=== PATIENT | male | born 1935 | race Caucasian/White ===

== ENCOUNTER → 2017-12-17 12:34 | Outpatient (CLI) | payer MEDICARE, SELFPAY ==
--- NOTE | 2017-12-17 12:38 | ECHOD_ITS ---
Reason For Study: ARRHYTHMIA Procedure This was a 2D Doppler, Color Flow transthoracic echocardiogram. Exam performed in department. Left Ventricle Normal LV size. Left ventricular systolic function is normal. The estimated ejection fraction is 60 %. Transmitral and pulmonary venous doppler flow suggestive of elevated left atrial pressure. Transmitral diastolic flow velocities suggest mild (stage 1) diastolic dysfunction (reversed pattern). Right Ventricle Normal RV size. Normal systolic function. Atria Normal left atrium. Normal right atrium. Mitral Valve Normal mitral valve. Trivial mitral valve insufficiency. Tricuspid Valve Normal tricuspid valve. Mild (1+) tricuspid valve insufficiency. Pulmonary artery systolic pressure is 34 mmHg. Aortic Valve Trisinus/trileaflet aortic valve. Mild focal aortic valve calcification. Pulmonic Valve Normal pulmonic valve. Great Vessels Normal aortic root. The pulmonary artery is normal size. Inferior vena cava collapse with sniff. Pericardium/Pleural No pericardial effusion. MMode/2D Measurements & Calculations LVIDd: 3.8 cm IVSd: 1.1 cm Ao root diam: 3.3 cm LVIDs: 2.4 cm LVPWd: 1.1 cm LA dimension: 3.1 cm RVDd: 4.6 cm FS: 37.8 % LAV(MOD-bp): 73.1 ml EDV(MOD-sp4): 128.9 ml EDV(MOD-sp2): 85.6 ml LAV(MOD-bp) Indexed: 39.5 ml/m2 ESV(MOD-sp4): 26.6 ml EF(MOD-sp2): 59.9 % LAV(MOD-sp2): 77.3 ml EF(MOD-sp4): 79.4 % LAV(MOD-sp4): 67.3 ml SV(MOD-sp4): 102.3 ml SV(MOD-sp2): 51.3 ml LA A4 area: 21.7 cm2 RA A4 area: 18.4 cm2 Doppler Measurements & Calculations MV E max kj: 82.7 cm/sec Ao V2 max: 187.9 cm/sec AI max kj: 392.8 cm/sec MV A max kj: 100.9 cm/sec Ao max P.1 mmHg AI max P.7 mmHg MV E/A: 0.82 AI dec slope: 235.5 cm/sec2 AI P1/2t: 488.6 msec LV V1 max: 151.2 cm/sec PA V2 max: 137.8 cm/sec PI end-d kj: 97.6 cm/sec LV V1 max P.2 mmHg TR max kj: 271.6 cm/sec TR max P.5 mmHg Interpretation Summary Normal LV size. Left ventricular systolic function is normal. The estimated ejection fraction is 60 %. Transmitral and pulmonary venous doppler flow suggestive of elevated left atrial pressure. Transmitral diastolic flow velocities suggest mild (stage 1) diastolic dysfunction (reversed pattern). Pulmonary artery systolic pressure is 34 mmHg. Ordering Physician: Yordan Child Referring Physician: Renata Rodriguez M.D. Performed By: Tamara Mendez, DARI, RVT
== END ==
PROVIDERS: Family Provider Internal Medicine; PCP Internal Medicine; Visit Provider Internal Medicine Cardiovascular Disease
DX: I48.91 Unspecified atrial fibrillation (principal); I36.1 Nonrheumatic tricuspid (valve) insufficiency
CPT/HCPCS: 93225; 93226; 93306

== ENCOUNTER 2018-05-07 16:00 | Outpatient (RCR) | payer MEDICARE, SELFPAY ==
--- NOTE | 2018-03-23 08:29 | HP.PTEVAL ---
Patient's Visit Information JOCELYNE SINGLETON is a 82 year old M referred to Physical Therapy by Mike Nayak with a diagnosis of imbalance, dizzyness. Date of Evaluation: 03/23/18 Physical Therapist: Rian Mao DPT, OC - Visit Plan Frequency: 2x /Week Duration: 4-6 Weeks Plan: Neurocom balance assessment and then 1-2 visists to teach HEP and f/u one months later for ensure progress. - Subjective Subjective: Golfing in november and had a stroke. Didn't know which way to go, lied down after the golf game and went to ER next day. Found a stroke and leukemia. Is on chemo 3x/month now for leukemia. Was in hospital 4 days. They spend the Winter in [facility]. Now he is home with his . He robyn golfed twoce but endurance is down. Life is pretty normal but balance is worse especially when he is tired and. he veers to the right running into his at times when walkign with her. No AD, no spinning, no pain, no neuropathy. - Objective Walks into and out of PT I, Trasnfers I. VOR is very hard for patient even sitting but walking shows veering as he is doing it. Full UE and LE AROM, Gastroc slightly tight B. Sensation In LE WNL to gross light touch. reflexes 1/3 patella and achilles. Stregnth LE 4+/5 and UE 4/5. symmtrical but R obviously weaker on steps as L hits ground hard. Veers to the right when standign on foam with ec. - Balance Scores Functional Gait Assessment Score: 22 % Disability: 26.6700 CATSIB Score (Max score 120 seconds): 102 - Goals Goal 1:: Patient feel 100% back to normal Goal Time Frame: 4-6 Weeks Goal 2:: Score 25/30 on FGA and walk VOR without veering R Goal Time Frame: 4-6 Weeks Goal 3:: Pt I in approp ex to minimize future problems. Goal Time Frame: 4-6 Weeks - Rehabilitation Potential Physical Therapy Diagnosis: imbalance, dizzyness. Rehabilitation Potential: Fair - Anticipated Interventions Patient/Client Instruction: Educate patient on: Condition For the Purpose of:: To improve ability of physical actions for home/community/work/leisure, To improve gait and locomotor functions, To improve safety Therapeutic Exercise to Include: Balance training For the Purpose of:: To improve muscle performance and motor function, To improve ability of physical actions for home/community/work/leisure, To improve gait and locomotor functions Thank you for the opportunity to evaluate your patient. For Medicare and Medicare HMO plans, please review the plan of care and approve it. It will need to be FAXED BACK to us at [phone] for Medicare purposes. Please let me know if there are questions or concerns regarding this plan of care. Physician Signature: Date:
--- NOTE | 2018-03-31 11:06 | HP.PTCOM ---
PT Communication Note 03/31/[address] Mike Nayak , Thank you for the referral of Waqar to [facility] for balance assessment. I have enclosed a copy of the results for your review. In summation, he scored slightly low on the visual and vestibular portion of the Sensory Organization test. He scored low ont he excursion forward and left on the Limits of Stability Test. He aaslo showed latency in all directions on the Motor Control Test. His Adaptation Test was normal. With these results in mind, I plan to see him for one visit to teach an exercise program to address these issues. I then plan for him to do the exercises at home and f/u one month down the road to ensure improvement and progress. Please contact me if you have questions regarding these tests or plans. Sincerely, Rian Mao DPT, OC Contact Information
--- NOTE | 2018-03-31 11:09 | HP.PTCOM_ITS ---
PT Communication Note 03/31/[address] Mike Nayak , Thank you for the referral of Waqar to [facility] for balance assessment. I have enclosed a copy of the results for your review. In summation, he scored slightly low on the visual and vestibular portion of the Sensory Organization test. He scored low ont he excursion forward and left on the Limits of Stability Test. He aaslo showed latency in all directions on the Motor Control Test. His Adaptation Test was normal. With these results in mind, I plan to see him for one visit to teach an exercise program to address these issues. I then plan for him to do the exercises at home and f/u one month down the road to ensure improvement and progress. Please contact me if you have questions regarding these tests or plans. Sincerely, Rian Mao DPT, OC Contact Information
--- NOTE | 2018-05-07 16:33 | HP.PTDCSUM_ITS ---
HP - PT D/C Summary It has been my pleasure to treat JOCELYNE SINGLETON under orders from Mike Nayak, for the diagnosis of imbalance, dizzyness for a total of 4 visit(s) . Discharge Date: 05/07/18 Please see the following information for a summary of their discharge status. - Subjective Subjective: Doing better. ex getting easier. No more dizzyness. - Overall Improvement % Improvement: 80 - Objective Objective/Function: FGA much better % points. SOT slightly better but still vestib deficits. LOS much better and normal now for age.OVERALL DOING EXCELLENT WITH MUCH IMPROVEMENT. - Goals Goal 1:: Patient feel 100% back to normal Goal Progress: Progressing Goal 2:: Score 25/30 on FGA and walk VOR without veering R Goal Progress: Goal Met Goal 3:: Pt I in approp ex to minimize future problems. Goal Progress: Goal Met - Plan Plan: D/C TO HEP - D/C Information Discharge Comments: dOING VERY WELL AND WILL CONTINUE VIA hep If there are questions or concerns regarding this patient's physical therapy, please feel free to call me at [phone]. Thank you for the referral of this patient. Sincerely, Rian Mao, DPT, OC
== END 2018-05-07 19:00 | disposition home or self-care (01) ==
LOC: PT 16:00
PROVIDERS: Family Provider Internal Medicine; PCP Internal Medicine; Visit Provider Psychiatry & Neurology Neurology
DX: R42 Dizziness and giddiness (principal); R26.89 Other abnormalities of gait and mobility
CPT/HCPCS: 97110; 97162; 97530; 97750; G8978; G8979

== ENCOUNTER → 2018-06-27 10:10 | Outpatient (CLI) | payer MEDICARE, SELFPAY ==
--- NOTE | 2018-06-27 10:10 | LES_PTH ---
PATIENT: JOCELYNE SINGLETON LOC: [facility] U#:[id number] AGE/SX: 89/M ROOM: RE06/27/[address]: Dr. Fly Dutta MD : 1935 BED: DIS: SPEC #: [id number] RECD: 06/29/18 07:20 STATUS: SUHAIL SANDI #: [id number] MARY: 06/27/18 10:[address]: Fly Dutta DEPT: SURGICAL PATHOLOGY RECD BY: Maurilio Novak ENTERED: 06/29/18 08:48 SP TYPE: Lesion OTHR DR: Dr. Renata Rodriguez MD Tissues: Skin of leg, NOS Procedures: Surgery Specimen Level IV HEADER OPERATION: Excision left lower leg lesion PRE-OP DIAGNOSIS: Uncertain neoplasm leg TISSUE SUBMITTED: Left lower leg tissue transverse ellipse, suture valenzuela lateral MICROSCOPIC DIAGNOSIS Lesion of left lower leg, excisional biopsy: Squamous cell carcinoma, keratoacanthomatous type, mildly inflamed. See Comment. AM:marlo 06/30/18 COMMENT The lesion is completely excised in the planes examined. Focal microinvasion by carcinoma is suspected. Case has been reviewed in consultation with Dr. Burrell who concurs with the above diagnosis. IDC:SJ MICROSCOPIC DESCRIPTION Slides are reviewed. GROSS DESCRIPTION Received in fixative is one container labeled with the patient's name and designated left lower leg. The specimen consists of a jurado-white skin ellipse measuring 3 x 1.5 cm and up to 0.3 cm in thickness. A suture identifies the lateral tip of the ellipse. The specimen is inked as follows: lateral tip assigned as 9 o'clock and inked yellow, medial tip 3 o'clock inked green, superior margin and peripheral margin assigned as 12 o'clock - black and other peripheral margin assigned as 6 o'clock - blue. There is a woodward, nodular lesion on the surface measuring 0.7 cm in diameter. The specimen is serially sectioned and submitted entirely in three cassettes as follows: 1 - medial and lateral tip, 2 - medial half of the specimen, 3 - lateral half of the specimen. / SJ:rg 06/29/18 TC:0 CPT: 74819 ADDENDUM ADDENDUM ADDENDUM ADDENDUM ADDENDUM ADDENDUM ADDENDUM ADDENDUM ADDENDUM ADDENDUM ADDENDUM ADDENDUM ADDENDUM ADDENDUM 07/14/2018 12:45 ADDENDUM 07/14/2018 12:45 ADDENDUM 07/14/2018 12:45 ADDENDUM 07/14/2018 12:45 ADDENDUM 07/14/2018 12:45 This case was discussed with Dr. Stanley on 07/09/[address] Burrell and the following items were highlighted: Tumor type - well differentiated squamous cell carcinoma, keratoacanthomatous type. Tumor size - 0.7 cm Closest peripheral margin - 0.3 cm Closest deep margin - 0.2 cm Perineural invasion - not identified Lymphvascular invasion - not identified Suspected microinvasive carcinoma - 0.1 cm in greatest dimension. AM:marlo 07/13/18 AM:marlo 07/14/18
--- NOTE | 2018-06-27 10:10 | LES_PTH ---
PATIENT: JOCELYNE SINGLETON LOC: [facility] U#:[id number] AGE/SX: 89/M ROOM: RE06/27/[address]: Dr. Fly Dutta MD : 1935 BED: DIS: SPEC #: [id number] RECD: 06/29/18 07:20 STATUS: SUHAIL SANDI #: [id number] MRAY: 06/27/18 10:[address]: Fly Dutta DEPT: SURGICAL PATHOLOGY RECD BY: Maurilio Novak ENTERED: 06/29/18 08:48 SP TYPE: Lesion OTHR DR: Dr. Renata Rodriguez MD Tissues: Skin of leg, NOS Procedures: Surgery Specimen Level IV HEADER OPERATION: Excision left lower leg lesion PRE-OP DIAGNOSIS: Uncertain neoplasm leg TISSUE SUBMITTED: Left lower leg tissue transverse ellipse, suture valenzuela lateral MICROSCOPIC DIAGNOSIS Lesion of left lower leg, excisional biopsy: Squamous cell carcinoma, keratoacanthomatous type, mildly inflamed. See Comment. AM:marlo 06/30/18 COMMENT The lesion is completely excised in the planes examined. Focal microinvasion by carcinoma is suspected. Case has been reviewed in consultation with Dr. Burrell who concurs with the above diagnosis. IDC:SJ MICROSCOPIC DESCRIPTION Slides are reviewed. GROSS DESCRIPTION Received in fixative is one container labeled with the patient's name and designated left lower leg. The specimen consists of a jurado-white skin ellipse measuring 3 x 1.5 cm and up to 0.3 cm in thickness. A suture identifies the lateral tip of the ellipse. The specimen is inked as follows: lateral tip assigned as 9 o'clock and inked yellow, medial tip 3 o'clock inked green, superior margin and peripheral margin assigned as 12 o'clock - black and other peripheral margin assigned as 6 o'clock - blue. There is a woodward, nodular lesion on the surface measuring 0.7 cm in diameter. The specimen is serially sectioned and submitted entirely in three cassettes as follows: 1 - medial and lateral tip, 2 - medial half of the specimen, 3 - lateral half of the specimen. / SJ:rg 06/29/18 TC:0 CPT: 18080 ADDENDUM ADDENDUM ADDENDUM ADDENDUM ADDENDUM ADDENDUM ADDENDUM ADDENDUM ADDENDUM ADDENDUM ADDENDUM ADDENDUM 07/13/2018 14:58 ADDENDUM 07/13/2018 14:58 ADDENDUM 07/13/2018 14:58 ADDENDUM 07/13/2018 14:58 ADDENDUM 07/13/2018 14:58 This case was discussed with Dr. Stanley on 07/09/[address] Burrell and the following items were highlighted: Tumor size - 0.7 cm Closest peripheral margin - 0.3 cm Closest deep margin - 0.2 cm Perineural invasion - not identified Lymphvascular invasion - not identified Suspected microinvasive carcinoma - 0.1 cm in greatest dimension. AM:marlo 07/13/18
== END ==
PROVIDERS: Family Provider Internal Medicine; PCP Internal Medicine; Visit Provider Surgery
DX: C44.729 Squamous cell carcinoma of skin of left lower limb, including hip (principal)
CPT/HCPCS: 88305

== ENCOUNTER 2019-06-29 06:31 | Emergency (ER) | payer MEDICARE, SELFPAY ==
[2018-07-14 13:00] VITALS: BMI 24.0
[2019-06-29 06:32] VITALS: BP 158/88; PULSE 80; RESP 16; TEMP 36.2; O2SAT 97; BMI 24.5
--- NOTE | 2019-06-29 06:43 | ED.VIS.GEN ---
History of Present Illness Chief Complaint: Wound Check Narrative: Patient is an 84-year-old male who presents with a bleeding wound. He had a carcinoma removed from his left cheek by dermatology yesterday. He initially had a pressure dressing. He has had some ongoing bleeding ever since that time and has been unable to stop it. He actually has an appointment 10:00 this morning. They spoke to the surgeon yesterday who noted that if they were unable to control the bleeding they should go to an urgent care or emergency department for a pressure dressing. Past Medical History - Allergies and Home Meds Allergies/Adverse Reactions: Allergies azithromycin [From Zithromax Z-Moises] Adverse Reaction (Mild, Verified 06/29/19 06:35) GI Upset atorvastatin Adverse Reaction (Verified 06/29/19 06:35) un able to focus Sulfa (Sulfonamide Antibiotics) Adverse Reaction (Verified 06/29/19 06:35) Unknown Primary Care Physician: Renata Rodriguez MD [Primary Care Provider] - Past Medical History: None Smoking Status: Former smoker Review of Systems All systems negative except as indicated General: Denies: Fever Cardiovascular: Denies: Chest pain Respiratory: Denies: Dyspnea Gastrointestinal: Denies: Vomiting Skin: Reports: Wounds Physical Exam Vital Signs/Narrative: Vital Signs Temp Pulse Resp Pulse Ox 06/29/19 06:32 97.2 F L 80 16 97 Inital Vital Signs reviewed: Yes General: Well nourished Head: Normocephalic Eyes: EOMI ENT: Moist mucous membranes Cardiovascular: Regular rate, Regular rhythm Respiratory: No distress Skin: - - Surgical wound to the left cheek with mild consistent venous bleeding Neurological: Alert Psychological: Normal affect Diagnostic/Tx/Re-eval - Medical Decision Making Patient presents with a bleeding surgical wound. Surgicel and a gauze dressing was placed. Bleeding appears to be controlled. We will monitor him for a time here to make sure the dressing does not saturate thrill and otherwise he can follow-up with his scheduled appointment with dermatology in 3 hours. ED Disposition - Plan for ED Patient: Disposition: Home or Assisted Living Diagnosis: Visit for wound check, Bleeding from wound Instructions: POST OP WOUND CHECK, Bleeding Referrals: Renata Rodriguez MD [Primary Care Provider] - Additional Instructions: Follow-up with dermatology today as scheduled.
== END 2019-06-29 07:33 | disposition home or self-care (01) ==
LOC: ED 06:48
PROVIDERS: Emergency Provider Emergency Medicine; Family Provider Internal Medicine; PCP Internal Medicine
DX: Z48.00 Encounter for change or removal of nonsurgical wound dressing (principal); Z85.828 Personal history of other malignant neoplasm of skin; Z87.891 Personal history of nicotine dependence
CPT/HCPCS: 99282

== ENCOUNTER 2020-10-26 09:19 | Outpatient (RCR) | payer MEDICARE, SELFPAY ==
[2018-07-14 13:00] VITALS: BMI 24.0
[2019-08-24 09:23] VITALS: BMI 24.6
== END 2020-10-26 23:59 ==
LOC: IMMUN 09:19
PROVIDERS: PCP Internal Medicine; Visit Provider Family Medicine
DX: Z23 Encounter for immunization (principal)
CPT/HCPCS: 0011A; 0012A; 91301

== ENCOUNTER 2021-11-16 15:31 | Emergency (ER) | payer MEDICARE, SELFPAY ==
[2018-07-14 13:00] VITALS: BMI 24.0
[2021-11-16 15:33] VITALS: BP 139/88; PULSE 75; RESP 18; TEMP 36.1; O2SAT 95; BMI 21.5
[2021-11-16 17:22] VITALS: BP 143/56; PULSE 69; RESP 18; O2SAT 93
[2021-11-16 19:12] VITALS: BP 128/57
--- NOTE | 2021-11-16 21:01 | EDS_ITS ---
HPI History of Present Illness Chief Complaint: Abn Labs Narrative Narrative: 86-year-old male sent in by Dr. Enriquez for platelet transfusion. Dr. Enriquez states that his platelet count is 18,000. He states he is having trouble getting outpatient transfusions for platelets and blood. 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 Dr. Enriquez did state that the patient had a stable hemoglobin 8.0 and he already did blood work and the patient just needs to get platelets. He states that he would obtain a urinalysis and urine culture in the office due to the patient's complaint of hematuria. He states that this did not need to be checked in the ER either. Patient has no complaints during the interview. [facility] Medical History Abnormal electrocardiogram Arthritis Chronic kidney disease, stage 3 CML (chronic myelocytic leukemia) CVA (cerebral vascular accident) DDD (degenerative disc disease) GERD (gastroesophageal reflux disease) H/O seborrheic keratosis Hyperlipidemia Keratoacanthoma Leukocytosis Lymphoma Prostate cancer Skin malignant neoplasm Thyroid nodule Vertigo Home Medications aspirin 81 mg tablet,delayed release 81 mg PO QDAY tab 12/17/17 [History Last Taken Unknown] decitabine 50 mg intravenous solution SUBCUT QMONTH ea 07/31/21 [History Last Taken Unknown] ferrous sulfate 325 mg (65 mg iron) tablet 325 mg PO DAILY 07/31/21 [History Last Taken Unknown] loratadine 10 mg tablet 10 mg PO DAILY 07/31/21 [History Last Taken Unknown] Allergy/AdvReac Type Severity Reaction Status Date / Time azithromycin AdvReac Mild GI Upset Verified 11/16/21 15:36 [From Zithromax Z-Moises] atorvastatin AdvReac un able to Verified 11/16/21 15:36 focus Sulfa (Sulfonamide AdvReac Unknown Verified 11/16/21 15:36 Antibiotics) Family History Father COPD (chronic obstructive pulmonary disease) Mother Heart disease Alzheimer disease Surgical History History of radical prostatectomy (~1996) Social History Smoking Status: Former smoker quit date: 10/06/79 pack-years: 20 alcohol intake: current alcohol intake frequency: a few times a month substance use type: does not use ROS ROS ED Constitutional Constitutional ED: Denies chills or fever(s) Eyes Eyes: Denies blurry vision or diplopia ENT ENT ED: Denies rhinorrhea or sore throat Cardiovascular Cardiovascular: Denies chest pain or palpitations Respiratory/Chest Respiratory/Chest: Denies cough or dyspnea Gastrointestinal Gastrointestinal: Denies abdominal pain, diarrhea, nausea or vomiting Genitourinary Genitourinary ED: Reports hematuria; Denies dysuria Musculoskeletal Musculoskeletal: Denies arthralgias, back pain, myalgias or neck pain Integumentary Denies rash Neurologic Neurologic: Denies headache(s) or paresthesias EXAM Physical Exam Const Vital Signs: 11/16/21 15:33 11/16/21 16:16 11/16/21 17:22 Temperature 96.9 F L Temperature Source Temporal Pulse Rate 75 69 Respiratory Rate 18 18 Respiratory Effort Normal Non-Labored Respiratory Pattern Normal Blood Pressure 139/88 H 143/56 H Blood Pressure Mean 105 85 Pulse Ox 95 93 Oxygen Delivery Method Room Air Room Air 11/16/21 19:12 11/16/21 21:55 Temperature Temperature Source Pulse Rate 78 Respiratory Rate 16 Respiratory Effort Respiratory Pattern Blood Pressure 128/57 H 114/44 L Blood Pressure Mean 80 67 Pulse Ox 98 Oxygen Delivery Method Room Air Positive well nourished General Appearance ED: NAD; Negative for pallor HEENT Reports moist mucous membranes Negative for trauma Eyes PERRL and EOMs intact bilaterally Resp normal respiratory effort and clear to auscultation bilaterally Cardio regular rate and regular rhythm Extremity normal to inspection General Extremety ED: Negative for edema or tenderness General Extremity: Negative for edema Neuro oriented x3 and CN's II-XII intact bilaterally Sensorium / Orientation: alert Motor Exam: strength 5/5 throughout Psych mental status grossly normal Skin no rashes or lesions noted General Skin Exam: Negative for jaundice or pallor MDM MDM MDM Narrative Medical decision making narrative: Patient will be receiving 1 unit of platelets per Dr. Enriquez. I counseled him on arrival that this would be a long wait and the platelets did have to come from [place]. These will be transfused and the patient will be discharged home. He will follow-up with Dr. Negrete outpatient. Impression: 1. Thrombocytopenia Lab Data Labs: Laboratory Results - last 24 hr 11/16/21 17:00 Blood Type O POSITIVE Discharge Plan Triage Chief Complaint: Abn Labs ED Provider: Bayron Perez Dx/Rx/DC Orders Instructions: Thrombocytopenia Prescriptions: No Action aspirin [Adult Aspirin Regimen] 81 mg tablet,delayed release (DR/EC) 81 mg PO QDAY RF: 0 loratadine [Claritin] 10 mg tablet 10 mg PO DAILY RF: 0 ferrous sulfate 325 mg (65 mg iron) tablet 325 mg PO DAILY RF: 0 decitabine [Dacogen] 50 mg recon soln subcut QMONTH RF: 0 Primary Care Provider: Renata Rodriguez Referrals: Renata Rodriguez MD [Primary Care Provider] - Disposition Disposition: Home, Self Care
[2021-11-16 21:55] VITALS: BP 114/44; PULSE 78; RESP 16; O2SAT 98
[2021-11-16 22:54] VITALS: PULSE 94; RESP 16; O2SAT 99
[2021-11-17] VITALS (7 sets, daily range): BP systolic 116–126; BP diastolic 48–53; PULSE 88–92; RESP 13–23; TEMP 36.6–36.8; O2SAT 98–100
== END 2021-11-17 02:06 | disposition home or self-care (01) ==
PROVIDERS: Emergency Provider Student in an Organized Health Care Education/Training Program; PCP Internal Medicine; Visit Provider Student in an Organized Health Care Education/Training Program
DX: D69.6 Thrombocytopenia, unspecified (principal); D46.9 Myelodysplastic syndrome, unspecified; N18.30 Chronic kidney disease, stage 3 unspecified; R31.9 Hematuria, unspecified; Z87.891 Personal history of nicotine dependence; E78.5 Hyperlipidemia, unspecified; M19.90 Unspecified osteoarthritis, unspecified site; Z86.73 Personal history of transient ischemic attack (TIA), and cerebral infarction without residual deficits; Z85.46 Personal history of malignant neoplasm of prostate; Z85.828 Personal history of other malignant neoplasm of skin; K21.9 Gastro-esophageal reflux disease without esophagitis; Z79.82 Long term (current) use of aspirin; Z79.899 Other long term (current) drug therapy
CPT/HCPCS: 99282; 36591; 86900; 86901; 86965; P9035; A4216

== ENCOUNTER 2021-11-19 10:17 | Inpatient (IN) | payer MEDICARE, SELFPAY ==
[2018-07-14 13:00] VITALS: BMI 24.0
[2021-11-19] VITALS (12 sets, daily range): BP systolic 104–149; BP diastolic 43–78; PULSE 77–113; RESP 14–18; TEMP 36.2–37.1; O2SAT 95–100; BMI 22.8; BMI 22.7
--- NOTE | 2021-11-19 10:55 | EX.ED.GUMALE ---
HPI History of Present Illness Chief Complaint: Complaint Informant: patient and spouse/S.O. Pain Onset: Days Context: Gradual Onset Timing: Continuous Current Severity: Mild Maximum Severity: Mild Narrative Narrative: No history of prior CVA, prostate cancer treated at [facility] and currently being treated for acute leukemia. He had gross hematuria for 4 days. He was seen in the emergency department on Friday was transfused platelets and discharged home. Today his oncologist Dr. Gary Enriquez called me. Patient is having continued hematuria and wanted his bladder irrigated along with labs. Patient denies other complaints. No nosebleed. No melena. He is on no blood thinners. Prior similar symptoms: Yes Recent Illness/Hospitalization: No PFSH [facility] Medical History (Updated 11/19/21 @ 12:[address] Ronaldo Ray MD) Abnormal electrocardiogram Arthritis Chronic kidney disease, stage 3 CML (chronic myelocytic leukemia) CVA (cerebral vascular accident) DDD (degenerative disc disease) GERD (gastroesophageal reflux disease) H/O seborrheic keratosis Hyperlipidemia Keratoacanthoma Leukocytosis Lymphoma Prostate cancer Skin malignant neoplasm Thyroid nodule Vertigo Home Medications aspirin 81 mg tablet,delayed release 81 mg PO QDAY tab 12/17/17 [History Last Taken Unknown] decitabine 50 mg intravenous solution SUBCUT QMONTH ea 07/31/21 [History Last Taken Unknown] ferrous sulfate 325 mg (65 mg iron) tablet 325 mg PO DAILY 07/31/21 [History Last Taken Unknown] loratadine 10 mg tablet 10 mg PO DAILY 07/31/21 [History Last Taken Unknown] Allergy/AdvReac Type Severity Reaction Status Date / Time azithromycin AdvReac Mild GI Upset Verified 11/16/21 15:36 [From Zithromax Z-Moises] atorvastatin AdvReac un able to Verified 11/16/21 15:36 focus Sulfa (Sulfonamide AdvReac Unknown Verified 11/16/21 15:36 Antibiotics) Family History Father COPD (chronic obstructive pulmonary disease) Mother Heart disease Alzheimer disease Surgical History History of radical prostatectomy (~1996) Social History Smoking Status: Former smoker quit date: 10/06/79 pack-years: 20 alcohol intake: current alcohol intake frequency: a few times a month substance use type: does not use ROS ROS ED ROS Narrative Hematuria. Review of Systems ROS Unobtainable: Denies due to encephalopathy Constitutional Constitutional ED: Denies fever(s) Eyes Eyes: Denies change in vision ENT ENT ED: Denies ear pain or sore throat Cardiovascular Cardiovascular: Denies chest pain Respiratory/Chest Respiratory/Chest: Denies cough or dyspnea Gastrointestinal Gastrointestinal: Denies abdominal pain, diarrhea, nausea or vomiting Genitourinary Genitourinary ED: Reports hematuria; Denies dysuria Musculoskeletal Musculoskeletal: Denies arthralgias or myalgias Integumentary Denies rash Neurologic Neurologic: Denies headache(s) Psychiatric Psychiatric: Denies depression Endocrine Endocrinology: Denies polyuria Hematologic/Lymphatic Hematologic/Lymphatic: Denies easy bruising Allergic/Immunologic Allergic/Immunologic ED: Denies urticaria EXAM Physical Exam Narrative Exam Narrative: 86-year-old male no acute distress. Sitting upright in bed. present at bedside. Vital signs stable afebrile. Initial blood pressure 149/51. He does not look septic or toxic. Neck nontender no lymphadenopathy. Lungs clear to auscultation. Heart regular rhythm rate about 95 no murmur. Abdomen soft nontender not normal bowel sounds no peritoneal signs. Moving all 4 extremities. Calves nontender. No edema. Neurologically is awake and alert with no focal motor de deficits. Const Vital Signs: 11/19/21 10:18 11/19/21 10:32 11/19/21 11:39 Temperature 97.2 F L 97.4 F L 98.4 F Temperature Source Temporal Temporal Temporal Pulse Rate 113 H 95 89 Respiratory Rate 17 18 14 Blood Pressure 149/51 H 141/61 H 104/75 Blood Pressure Mean 83 87 84 Pulse Ox 95 95 98 Oxygen Delivery Method Room Air Room Air Room Air 11/19/21 12:26 Temperature 97.6 F L Temperature Source Temporal Pulse Rate 77 Respiratory Rate 14 Blood Pressure 117/49 L Blood Pressure Mean 71 Pulse Ox 97 Oxygen Delivery Method Room Air Positive well nourished and well developed; Negative for obese, cachectic, contractures or unkempt General Appearance ED: well developed and NAD; Negative for unkempt, cachectic or contractures Nutritional Appearance: Negative for cachectic or obese HEENT Reports moist mucous membranes normocephalic and atraumatic; Negative for tenderness Eyes PERRL and EOMs intact bilaterally Neck no lymphadenopathy and supple Resp normal respiratory effort and clear to auscultation bilaterally Auscultation: Negative for rales, rhonchi or wheezes Cardio regular rate, regular rhythm, S1 normal heart sound, S2 normal heart sound and no murmurs GI non-tender, non-distended and no masses Auscultation: normoactive bowel sounds; Negative for hyperactive bowel sounds or hypoactive bowel sounds Palpation: soft; Negative for hepatomegaly Rectal Exam: Negative for tenderness no CVA tenderness Back/Spine no CVA tenderness General Back: Negative for CVA tenderness Cervical Spine: Negative for cervical spine tenderness Thoracic Spine / Upper Back: Negative for thoracic spinal tenderness Extremity normal to inspection General Extremety ED: Negative for edema or tenderness General Extremity: Negative for edema Neuro oriented x3, moves all extremities and no focal motor deficits Sensorium / Orientation: alert, oriented to person, oriented to place and oriented to time; Negative for orientation impaired, confused, lethargic or stuporous Motor Exam: strength 5/5 throughout Psych mental status grossly normal Appearance: Negative for unkempt Attitude: No agitated Mood & Affect: Negative for depressed or tearful Skin General Skin Exam: Negative for jaundice Lesions: no lesions Rashes: no rashes MDM MDM MDM Narrative Medical decision making narrative: 86-year-old male with gross hematuria. History of acute leukemia. Screening labs and urinalysis will be obtained. We went in place a 22 [place] catheter and irrigate out his bladder. Repeat exam patient is doing well at 12:45 PM. Is resting comfortably in bed. Nurses of irrigating with over a liter and it improves but it stays bloody the entire time. There are any significant clots. I spoke to both he and his . Given his blood counts worse and his platelets are worse he will need a platelet transfusion. He may or may not need urology involvement for cystoscopy. I will speak to his oncologist and the hospitalist to get him admitted. He also has acute on chronic kidney injury. I have ordered transfusion of platelets. Lab Data Attestation: I reviewed the patient's lab results. Lab results narrative: CBC shows a white count of 4.4. Hemoglobin is 6.4 and hematocrit of 21.8. Platelet count of 13,000. Those were all lower than his most recent lab work. Bands of 16. His CBC is consistent with some with acute leukemia and also bleeding. His electrolytes show an anion gap of 6. BUN of 49 and creatinine of 2.08. Glucose of 114. Urinalysis shows blood but no acute signs of infection. Labs: Laboratory Results - last 24 hr 11/19/21 11/19/21 11/19/21 11:05 11:05 11:05 WBC 4.4 RBC 2.15 L Hgb 6.4 L Hct 21.8 L MCV 101.4 H MCH 29.8 MCHC 29.4 L RDW Std Deviation 86.7 H RDW Coeff of Patsy 23.8 H Plt Count 13 L* Immature Gran % (Auto) WELDING PANTOGRAPH MACHINE OPERATOR Neut % (Auto) WELDING PANTOGRAPH MACHINE OPERATOR Lymph % (Auto) WELDING PANTOGRAPH MACHINE OPERATOR [place] % (Auto) WELDING PANTOGRAPH MACHINE OPERATOR Eos % (Auto) WELDING PANTOGRAPH MACHINE OPERATOR Baso % (Auto) WELDING PANTOGRAPH MACHINE OPERATOR Absolute Neuts (auto) 2.5 Absolute Lymphs (auto) 0.39 L Total Counted WELDING PANTOGRAPH MACHINE OPERATOR Neutrophils % (Manual) 40 L Band Neutrophils % 16 H Lymphocytes % (Manual) 9 L Monocytes % (Manual) 3 Eosinophils % (Manual) 20 H Metamyelocytes % 6 H Myelocytes % 5 H Blast Cells % 1 H* Nucleated RBC % 0.5 Nucleated RBCs/100 WBC 1 Diff Path Review May foll Platelet Estimate MKD DEC Hypochromasia 2+ Anisocytosis 3+ Sodium 139 Potassium 4.2 Chloride 109 H Carbon Dioxide 24.0 Anion Gap 6 BUN 49 H Creatinine 2.08 H Estim Creat Clear Calc 24.53 Est GFR (MDRD) Af Amer 39 L Est GFR (MDRD) Non-Af 32 L BUN/Creatinine Ratio 23.6 H Glucose 114 H Calcium 8.0 L Urine Color Urine Clarity Urine pH Ur Specific [place] Urine Protein Urine Glucose (UA) Urine Ketones Urine Occult Blood Urine Nitrite Urine Bilirubin Urine Urobilinogen Ur Leukocyte Esterase Urine RBC Urine WBC Ur Squamous Epith Cells Urine Bacteria Urine Mucus Blood Type O POSITIVE Antibody Screen NEGATIVE 11/19/21 11:44 WBC RBC Hgb Hct MCV MCH MCHC RDW Std Deviation RDW Coeff of Patsy Plt Count Immature Gran % (Auto) Neut % (Auto) Lymph % (Auto) [place] % (Auto) Eos % (Auto) Baso % (Auto) Absolute Neuts (auto) Absolute Lymphs (auto) Total Counted Neutrophils % (Manual) Band Neutrophils % Lymphocytes % (Manual) Monocytes % (Manual) Eosinophils % (Manual) Metamyelocytes % Myelocytes % Blast Cells % Nucleated RBC % Nucleated RBCs/100 WBC Diff Path Review Platelet Estimate Hypochromasia Anisocytosis Sodium Potassium Chloride Carbon Dioxide Anion Gap BUN Creatinine Estim Creat Clear Calc Est GFR (MDRD) Af Amer Est GFR (MDRD) Non-Af BUN/Creatinine Ratio Glucose Calcium Urine Color Red Urine Clarity Cloudy Urine pH 6.5 Ur Specific [place] 1.015 Urine Protein 500 H Urine Glucose (UA) Normal Urine Ketones Negative Urine Occult Blood 250 H Urine Nitrite Negative Urine Bilirubin Negative Urine Urobilinogen Normal Ur Leukocyte Esterase 25 H Urine RBC > 100 SEEN Urine WBC 0 SEEN Ur Squamous Epith Cells 0 SEEN Urine Bacteria 0 SEEN Urine Mucus 0 SEEN Blood Type Antibody Screen Discharge Plan Dx/Rx/DC Orders Clinical Impression: Gross hematuria, Anemia, Thrombocytopenia, Acute leukemia, Acute on chronic renal insufficiency Disposition Disposition: Acute Care Hospital [facility]
[2021-11-19 11:24] LABS: Absolute Neutrophil Count 2.5 X10^3/uL (2.0-7.7); Eosinophil# 0.26 X10^3/uL; Hematocrit 21.8 % (40-54); Hemoglobin 6.4 g/dL (13.0-16.5); Mean Corp Hgb Conc 29.4 g/dL (32-36); Mean Corpuscular Hgb 29.8 pg (27.0-32.0); Mean Corpuscular Volume 101.4 fL (80-94); Monocyte# 0.55 X10^3/uL; NRBC Flagged by Analyzer 0.5 % (0-5); POSITIVE COUNT YES; POSITIVE DIFFERENTIAL YES; POSITIVE MORPHOLOGY YES; Platelet Count 13 K/mm3 (150-450); RBC Distribution Width CV 23.8 % (11.6-14.6); RBC Distribution Width SD 86.7 fl (35.1-43.9); Red Blood Count 2.15 M/mm3 (4.6-6.2); White Blood Count 4.4 K/mm3 (4.4-11.0)
[2021-11-19 11:28] LABS: Anion Gap 6 (5-15); BUN 49 mg/dL (7-18); BUN/Creat Ratio 23.6 RATIO (10-20); Chloride 109 mmol/L (98-107); Creatinine, Serum 2.08 mg/dL (0.70-1.30); EST Glomerular Filtration Rate 32 mL/min (>60); Est Glom Filt Rate - Afr Amer 39 mL/min (>60); Estimated Creatinine Clearance 24.53 ml/min; Glucose 114 mg/dL (74-106); Potassium 4.2 mmol/L (3.5-5.1); Sodium Level 139 mmol/L (136-145)
[2021-11-19 11:30] LABS: Differential Indicated SCAN CRITERIA MET
[2021-11-19 11:52] LABS: Blast 1 % (0-0); Eosinophil 20 % (0-5); Lymphocyte 9 % (19-41); Metamyelocyte 6 % (0-1); Monocyte 3 % (0-10); Myelocyte 5 % (0-0); Neutrophil-Band 16 % (0-5); Neutrophil-Segmented 40 % (47-70); Nucleated Red Bld Cells,Manual 1 % (0-5)
[2021-11-19 11:53] LABS: Anisocytosis 3+; Hypochromasia 2+; Platelet Estimate MKD DEC (ADEQ)
[2021-11-19 11:54] LABS: Neutrophil # 2.48 X10^3/uL (2.7-7.7); Scan Smear per Review Criteria MANUAL DIFF
[2021-11-19 11:54] LABS: Bacteria 0 SEEN /hpf (None Seen); Mucous, Urine 0 SEEN /hpf (<or=2+); Squamous Epithelial Cells - UA 0 SEEN /hpf (0-5); White Blood Cells 0 SEEN /hpf (0-5)
[2021-11-19 11:55] LABS: Absolute Lymphocyte Count 0.39 X10^3/uL (0.83-4.51); Lymphocyte # 0.39 X10^3/ul (0.83-4.51)
[2021-11-19 12:13] LABS: Color, Urine Red (Yellow); Glucose, Dipstick Normal (Normal); Ketone-Dipstick Negative (Negative); Leukocyte Esterase-Dipstick 25 /ul (Negative); Nitrite-Dipstick Negative (Negative); Occult Blood-Urine 250 /ul (Negative); Protein-Dipstick 500 mg/dl (Negative); Specific Gravity, Urine 1.015 (1.002-1.030); Urine Bilirubin Dipstick Negative (Negative); Urine Clarity Cloudy (Clear); Urine Urobilinogen Normal (Normal); Urine pH 6.5 (5.0 - 8.0)
[2021-11-19 12:28] LABS: Red Blood Cells-Urine > 100 SEEN /hpf (0-5)
--- NOTE | 2021-11-19 13:40 | CASEMGMT ---
ANUPAM SMITH Assessment: RN CM to room to meet with patient for initial transition planning/care coordination assessment. RN LUIS introduced self and role at [facility]. Patient voices understanding and consents to assessment at this time. Patient's Katherin Kim present at bedside. Patient is alert and oriented and answers all questions appropriately. Care providers, pharmacy, and demographics verified/updated at this time. Admitting Dx: gross hematuria, thrombocytopenia, anemia, acute leukemia PCP: Renata Rodriguez Specialists: Zoe- hematology/oncology Preferred Pharmacy: [facility] Insurance: [facility] Prescription Benefit: yes Living Will/HPOA: Patient has a living will on file at [facility]. Denies having HPOA. LNOK: Katherin Kim Living Arrangements: Patient lives with in single story house with two steps to enter the home and a handrail present. Patient states independent with ADLs prior to hospitalization. Smoking/ETOH: Former smoker (quit 40 years ago), occasional glass of wine Transportation: Patient drives self and denies transportation concerns. DME/HHC/SNF: Patient typically ambulates independently without the use of an assistive device but does occasionally use walking stick when leaving the home. Patient also has walker and grab bars available in the home. Denies need for additional DME at this time. Patient denies previous HHC or SNF stays. Patient has no concerns with going home at time of discharge. CM to follow for any discharge planning/needs. Patient and voice no concerns/needs at this time. Advised patient and to ask for CM if any questions/concerns/needs arise. Voices understanding. Plan: home
--- NOTE | 2021-11-19 14:48 | ED.RN ---
dr. weiner ordered zuñiga irrigation. pt. had 3000ml irrigation in [id number] output. no clots noted just red tinged urine.
--- NOTE | 2021-11-19 14:50 | ED.RN ---
dr. Ray verbal orders to stop irrigation.
--- NOTE | 2021-11-19 15:13 | HP.PCM.HOS_ITS ---
HPI - General General Date of Admission: 11/19/21 HPI Narrative JOCELYNE SINGLETON, is a 86 M who presents with hematuria. Began on 11/16/2021. Seen in ED on the for thrombocytopenia of 18,000 and Hg of 8. He received platelets and sent home. He was noted to have hematuria at that time, but no urinalysis performed then. Hematuria persisted and sent back to ED. Platelets noted to be 13,000. DW Dr. 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 He has been on chemotherapy for the leukemia. He has not had hematuria before. Dr. Enriquez does not feel that TF to tertiary facility for acute leukemia treatment, but does advise eval for the hematuria. [facility] Medical History (Updated 11/19/21 @ 15:[address] Rian Chavez DO) Abnormal electrocardiogram Arthritis Chronic kidney disease, stage 3 CML (chronic myelocytic leukemia) CVA (cerebral vascular accident) DDD (degenerative disc disease) GERD (gastroesophageal reflux disease) H/O seborrheic keratosis Hyperlipidemia Keratoacanthoma Leukocytosis Lymphoma Prostate cancer Skin malignant neoplasm Thyroid nodule Vertigo Home Medications aspirin 81 mg tablet,delayed release 81 mg PO QODAY tab 12/17/17 [History Last Taken 11/18/21] decitabine 50 mg intravenous solution 50 mg SUBCUT QMONTH ea 07/31/21 [History Last Taken 11/19/21] ferrous sulfate 325 mg (65 mg iron) tablet 325 mg PO DAILY 07/31/21 [History Last Taken 11/19/21] loratadine 10 mg tablet 10 mg PO DAILY 07/31/21 [History Last Taken 11/19/21] Allergy/AdvReac Type Severity Reaction Status Date / Time azithromycin AdvReac Mild GI Upset Verified 11/16/21 15:36 [From Zithromax Z-Moises] atorvastatin AdvReac un able to Verified 11/16/21 15:36 focus Sulfa (Sulfonamide AdvReac Unknown Verified 11/16/21 15:36 Antibiotics) Family History Father COPD (chronic obstructive pulmonary disease) Mother Heart disease Alzheimer disease Surgical History History of radical prostatectomy (~1996) Social History Smoking Status: Former smoker quit date: 10/06/79 pack-years: 20 alcohol intake: current alcohol intake frequency: a few times a month substance use type: does not use ROS ROS Narrative Short of breath with the anemia. All review of systems were negative except as mentioned above in the history of present illness and the other review of systems. Vital Signs Vital Signs Vital Signs: 11/19/21 10:18 11/19/21 10:32 11/19/21 11:39 Temperature 36.2 C L 36.3 C L 36.9 C Temperature Source Temporal Temporal Temporal Pulse Rate 113 H 95 89 Respiratory Rate 17 18 14 Blood Pressure 149/51 H 141/61 H 104/75 Blood Pressure Mean 83 87 84 Pulse Ox 95 95 98 Oxygen Delivery Method Room Air Room Air Room Air 11/19/21 12:26 11/19/21 14:22 Temperature 36.4 C L 36.6 C Temperature Source Temporal Temporal Pulse Rate 77 86 Respiratory Rate 14 18 Blood Pressure 117/49 L 115/43 L Blood Pressure Mean 71 67 Pulse Ox 97 97 Oxygen Delivery Method Room Air Room Air Weight Weight: 68.039 kg Body Mass Index (BMI) 22.8 Physical Exam Const alert and no apparent distress General Appearance: cooperative HEENT normocephalic, head/scalp atraumatic, hearing grossly normal bilaterally and mo ist oral mucous membranes Resp normal respiratory effort, no retractions, no use of accessory muscles and clear to auscultation bilaterally Cardio regular rate, regular rhythm, S1 normal heart sound and S2 normal heart sound GI normal to inspection, nondistended, normoactive bowel sounds, soft to palpation, non-tender and non-distended Extremity normal to inspection Neuro oriented x3 Sensorium / Orientation: awake, alert, oriented to person and oriented to place Results Lab / Micro Data Attestation: I reviewed the patient's lab results. Result Diagrams: 11/19/21 11:05 11/19/21 11:05 Labs: Laboratory Results - last 24 hr 11/19/21 11:05: WBC 4.4, RBC 2.15 L, Hgb 6.4 L, Hct 21.8 L, MCV 101.4 H, MCH 29.8, MCHC 29.4 L, RDW Std Deviation 86.7 H, RDW Coeff of Patsy 23.8 H, Plt Count 13 L*, Immature Gran % (Auto) EMBEDDED SOFTWARE DEVELOPMENT ENGINEER, Neut % (Auto) EMBEDDED SOFTWARE DEVELOPMENT ENGINEER, Lymph % (Auto) EMBEDDED SOFTWARE DEVELOPMENT ENGINEER, [place] % (Auto) EMBEDDED SOFTWARE DEVELOPMENT ENGINEER, Eos % (Auto) EMBEDDED SOFTWARE DEVELOPMENT ENGINEER, Baso % (Auto) EMBEDDED SOFTWARE DEVELOPMENT ENGINEER, Absolute Neuts (auto) 2.5, Absolute Lymphs (auto) 0.39 L, Total Counted EMBEDDED SOFTWARE DEVELOPMENT ENGINEER, Neutrophils % (Manual) 40 L, Band Neutrophils % 16 H, Lymphocytes % (Manual) 9 L, Monocytes % (Manual) 3, Eosinophils % (Manual) 20 H, Metamyelocytes % 6 H, Myelocytes % 5 H, Blast Cells % 1 H*, Nucleated RBC % 0.5, Nucleated RBCs/100 WBC 1, Diff Path Review February, Platelet Estimate MKD DEC, Hypochromasia 2+, Anisocytosis 3+ 11/19/21 11:05: Sodium 139, Potassium 4.2, Chloride 109 H, Carbon Dioxide 24.0, Anion Gap 6, BUN 49 H, Creatinine 2.08 H, Estim Creat Clear Calc 24.53, Est GFR (MDRD) Af Amer 39 L, Est GFR (MDRD) Non-Af 32 L, BUN/Creatinine Ratio 23.6 H, Glucose 114 H, Calcium 8.0 L 11/19/21 11:05: Blood Type O POSITIVE, Antibody Screen NEGATIVE 11/19/21 11:44: Urine Color Red, Urine Clarity Cloudy, Urine pH 6.5, Ur Specific [place] 1.015, Urine Protein 500 H, Urine Glucose (UA) Normal, Urine Ketones Negative, Urine Occult Blood 250 H, Urine Nitrite Negative, Urine Bilirubin Negative, Urine Urobilinogen Normal, Ur Leukocyte Esterase 25 H, Urine RBC > 100 SEEN, Urine WBC 0 SEEN, Ur Squamous Epith Cells 0 SEEN, Urine Bacteria 0 SEEN, Urine Mucus 0 SEEN Assessment & Plan Assessment/Plan (1) Gross hematuria: (2) Thrombocytopenia: (3) Anemia: QUALIFIERS: Anemia type: unspecified type Qualified Code(s): D64.9 - Anemia, unspecified (4) Acute on chronic renal insufficiency: PLAN: 1. Hematuria Complicated by thrombocytopenia CBI initiated in the emergency room and will continue on the floor consult for evaluation for cystoscopy 2. Thrombocytopenia Suspect due to the patient's leukemia and chemotherapy Patient transfused in the emergency room and will monitor 3. Acute blood loss anemia Secondary to hematuria Transfuse 1 unit 4. Acute kidney injury No baseline labs from 2012 IV fluids Consider nephrology evaluation if gets worse 5. Acute leukemia Hold decitabine 6. VTE prophylaxis: SCDs 7. CODE STATUS: Addressed with the patient. Patient wishes to be DNR Comfort Care arrest no intubation. Case discussed with the patient's at bedside. Charges/Coding Visit Charges Inpatient E&M: 37830 Init Hosp L3
--- NOTE | 2021-11-19 17:29 | PCM.CONS.U ---
HPI Consult Data Date of Consult: 11/19/21 HPI Narrative HPI Narrative: JOCELYNE SINGLETON, is a 86 M who presents with gross hematuria currently being treated for leukemia h/o prostate cancer and had prostate removed and he did need salvage XRT for recurrence plan to check a PSA, and do a CT scan of the abd/pelvis without contrast. continue with CBI platlets are 13,000 he probably will need platlets transfused as he is bleeding. [facility] Medical History (Updated 11/19/21 @ 15:[address] Rian Chavez DO) Abnormal electrocardiogram Arthritis Chronic kidney disease, stage 3 CML (chronic myelocytic leukemia) CVA (cerebral vascular accident) DDD (degenerative disc disease) GERD (gastroesophageal reflux disease) H/O seborrheic keratosis Hyperlipidemia Keratoacanthoma Leukocytosis Lymphoma Prostate cancer Skin malignant neoplasm Thyroid nodule Vertigo Home Medications aspirin 81 mg tablet,delayed release 81 mg PO QODAY tab 12/17/17 [History Last Taken 11/18/21] decitabine 50 mg intravenous solution 50 mg SUBCUT QMONTH ea 07/31/21 [History Last Taken 11/19/21] ferrous sulfate 325 mg (65 mg iron) tablet 325 mg PO DAILY 07/31/21 [History Last Taken 11/19/21] loratadine 10 mg tablet 10 mg PO DAILY 07/31/21 [History Last Taken 11/19/21] Allergy/AdvReac Type Severity Reaction Status Date / Time azithromycin AdvReac Mild GI Upset Verified 11/16/21 15:36 [From Zithromax Z-Moises] atorvastatin AdvReac un able to Verified 11/16/21 15:36 focus Sulfa (Sulfonamide AdvReac Unknown Verified 11/16/21 15:36 Antibiotics) Family History Father COPD (chronic obstructive pulmonary disease) Mother Heart disease Alzheimer disease Surgical History History of radical prostatectomy (~1996) Social History Smoking Status: Former smoker quit date: 10/06/79 pack-years: 20 alcohol intake: current alcohol intake frequency: a few times a month substance use type: does not use ROS Constitutional Constitutional: Denies chills, fever(s) or malaise Eyes Eyes: Denies blurry vision or change in vision ENT HEENT: Reports none Cardiovascular Cardiovascular: Denies chest pain or palpitations Respiratory/Chest Respiratory/Chest: Denies cough or shortness of breath with exertion Gastrointestinal Gastrointestinal: Denies abdominal pain, constipation or diarrhea Genitourinary Genitourinary: Reports systems reviewed and no addt'l complaints, except as documented Musculoskeletal Musculoskeletal: Denies back pain, joint stiffness or joint swelling Integumentary Integumentary: Denies dry skin, jaundice, lesions or rash Neurologic Neurologic: Denies confusion, syncope or weakness Psychiatric Psychiatric: Reports none; Denies anxiety or depression Endocrine Endocrinology: Denies excessive sweating, fatigue or flushing Hematologic/Lymphatic Hematologic/Lymphatic: Denies anemia, easy bleeding or easy bruising Physical Exam Const alert and oriented x3 General Appearance: cooperative HEENT normocephalic, head/scalp atraumatic, EAC's normal and TM's normal bilaterally Eyes PERRL and EOMs intact bilaterally Pupil: sluggish Neck no lymphadenopathy, supple and no JVD General: trachea midline Lymph Lymphatic: no lymphadenopathy noted, lymphedema and lymphadenopathy Resp normal respiratory effort, normal air movement and clear to auscultation bilaterally Cardio regular rate, regular rhythm and peripheral pulses 2+ throughout GI soft to palpation, non-tender and non-distended Extremity normal capillary refill and no clubbing, cyanosis or edema General Extremity: no tenderness to palpation of joints or extremities Skin no rashes or lesions noted General Skin Exam: turgor normal Lesions: no lesions Rashes: no rashes Neuro CN's II-XII intact bilaterally Speech: speech normal Motor Exam: strength 5/5 throughout; Negative for general weakness Psych thought process normal, cooperative and affect normal Appearance: appropriate Lab / Micro Data Result Diagrams: 11/19/21 11:05 11/19/21 11:05 Labs: Laboratory Results - last 24 hr 11/19/21 11:05: WBC 4.4, RBC 2.15 L, Hgb 6.4 L, Hct 21.8 L, MCV 101.4 H, MCH 29.8, MCHC 29.4 L, RDW Std Deviation 86.7 H, RDW Coeff of Patsy 23.8 H, Plt Count 13 L*, Immature Gran % (Auto) ONCOLOGY PHARMACIST, Neut % (Auto) ONCOLOGY PHARMACIST, Lymph % (Auto) ONCOLOGY PHARMACIST, [place] % (Auto) ONCOLOGY PHARMACIST, Eos % (Auto) ONCOLOGY PHARMACIST, Baso % (Auto) ONCOLOGY PHARMACIST, Absolute Neuts (auto) 2.5, Absolute Lymphs (auto) 0.39 L, Total Counted ONCOLOGY PHARMACIST, Neutrophils % (Manual) 40 L, Band Neutrophils % 16 H, Lymphocytes % (Manual) 9 L, Monocytes % (Manual) 3, Eosinophils % (Manual) 20 H, Metamyelocytes % 6 H, Myelocytes % 5 H, Blast Cells % 1 H*, Nucleated RBC % 0.5, Nucleated RBCs/100 WBC 1, Diff Path Review February, Platelet Estimate MKD DEC, Hypochromasia 2+, Anisocytosis 3+ 11/19/21 11:05: Sodium 139, Potassium 4.2, Chloride 109 H, Carbon Dioxide 24.0, Anion Gap 6, BUN 49 H, Creatinine 2.08 H, Estim Creat Clear Calc 24.53, Est GFR (MDRD) Af Amer 39 L, Est GFR (MDRD) Non-Af 32 L, BUN/Creatinine Ratio 23.6 H, Glucose 114 H, Calcium 8.0 L 11/19/21 11:05: Blood Type O POSITIVE, Antibody Screen NEGATIVE 11/19/21 11:05: Crossmatch See Detail 11/19/21 11:44: Urine Color Red, Urine Clarity Cloudy, Urine pH 6.5, Ur Specific [place] 1.015, Urine Protein 500 H, Urine Glucose (UA) Normal, Urine Ketones Negative, Urine Occult Blood 250 H, Urine Nitrite Negative, Urine Bilirubin Negative, Urine Urobilinogen Normal, Ur Leukocyte Esterase 25 H, Urine RBC > 100 SEEN, Urine WBC 0 SEEN, Ur Squamous Epith Cells 0 SEEN, Urine Bacteria 0 SEEN, Urine Mucus 0 SEEN
--- NOTE | 2021-11-19 20:01 | CT_ITS ---
INDICATION: gross hematuria EXAMINATION: CT ABDOMEN AND PELVIS WITHOUT CONTRAST - CT Abdomen And Pelvis W/O Contrast Injection TECHNIQUE: Helically acquired images were obtained of the abdomen and pelvis without oral or IV contrast. A radiation dose optimization technique was used for this scan. IV Contrast dosage and agent: None. Oral contrast: None. COMPARISON: None. FINDINGS: LOWER CHEST: Lung bases are clear. Assessment is limited by motion artifact. There is a right hilar calcification No cardiomegaly or pericardial effusion. Mild motion artifact seen in the abdomen especially in the anterior mid abdomen. LIVER: Homogeneous. No focal mass. GALLBLADDER AND BILIARY TREE: There are centrally lucent gallstones. No gallbladder distension or wall edema. No intra- or extrahepatic biliary ductal dilation. PANCREAS: No focal cystic or solid mass. SPLEEN: Normal size without focal cystic or solid mass. ADRENAL GLANDS: No nodules. KIDNEYS, URETERS and BLADDER: Normal renal size and position. Left upper pole, 5.2 cm fluid density with no appreciable complexly likely represents a simple cyst.. No hydronephrosis. Linear morphology calcification left renal hilum likely vascular in origin with moderate atherosclerosis throughout the abdominal aorta. MORTON catheter is in place. Small amount of intraluminal air. No appreciable mass lesion on this unenhanced exam. Note that there are multiple metallic densities throughout the pelvis and absent prostate gland. This causes streak artifact limiting assessment of the urinary bladder. PERITONEUM: No ascites or free air. No other fluid collection. BOWEL: No evidence of acute appendicitis. No abnormally distended bowel loops or air fluid levels. No wall thickening or mass. No focal inflammatory changes. LYMPH NODES: No enlarged mesenteric or retroperitoneal lymph nodes. VESSELS: Moderate atherosclerosis of the abdominal aorta. No aneurysmal dilation. Mild ectasia bilateral common iliac arteries measuring 17 mm on the right and 13 mm on the left. Flow REPRODUCTIVE ORGANS: Absent prostate gland. ABDOMINAL WALL: No discrete abdominal or pelvic wall hernia. BONES: Marketed degenerative changes lumbar spine with degenerative anterolisthesis of L4 on L5. There is marketed multilevel facet arthropathy lower lumbar spine with likely at least moderate central canal stenosis L3 and L4 levels. There are mild degenerative changes sacroiliac joints and bilateral hips. No lytic or blastic bone lesion. No fracture. CT/Abdomen/Pelvis without Cont IMPRESSION: No genitourinary stone or visible urothelial mass lesion. Note of MORTON catheter in the bladder. Note that assessment is limited without contrast. There is also some streak artifact from pelvic metallic clips. Roughly 5 cm fluid density superior pole left kidney without appreciable complexity. Abdominal aortic atherosclerosis without aneurysmal dilation. Ectasia bilateral common iliac arteries, right greater left. Advanced degenerative changes spine. Electronically Signed: Julien Zambrano DO at 21:33 EST ,
[2021-11-19] MEDS: 0.9% Normal Saline 1,000 ML 150 ML IV (20:16)
[2021-11-19] MEDS: 0.9% Saline Lock 10 ML Syringe IV (20:16)
[2021-11-20] VITALS (9 sets, daily range): BP systolic 99–119; BP diastolic 41–58; PULSE 78–90; RESP 16–18; TEMP 36.3–36.9; O2SAT 95–100
[2021-11-20 06:15] LABS: Hematocrit 21.2 % (40-54); Hemoglobin 6.6 g/dL (13.0-16.5); Mean Corp Hgb Conc 31.1 g/dL (32-36); Mean Corpuscular Hgb 29.9 pg (27.0-32.0); Mean Corpuscular Volume 95.9 fL (80-94); POSITIVE COUNT YES; POSITIVE MORPHOLOGY YES; RBC Distribution Width CV 24.7 % (11.6-14.6); RBC Distribution Width SD 85.4 fl (35.1-43.9); Red Blood Count 2.21 M/mm3 (4.6-6.2); White Blood Count 4.8 K/mm3 (4.4-11.0)
[2021-11-20 06:30] LABS: Differential Indicated MANUAL DIFF; Platelet Count 16 K/mm3 (150-450)
[2021-11-20 06:39] LABS: Anion Gap 3 (5-15); BUN 40 mg/dL (7-18); BUN/Creat Ratio 22.1 RATIO (10-20); Calcium,Total 7.5 mg/dL (8.5-10.1); Chloride 112 mmol/L (98-107); Creatinine, Serum 1.81 mg/dL (0.70-1.30); EST Glomerular Filtration Rate 38 mL/min (>60); Est Glom Filt Rate - Afr Amer 46 mL/min (>60); Estimated Creatinine Clearance 28.14 ml/min; Glucose 97 mg/dL (74-106); Sodium Level 141 mmol/L (136-145)
[2021-11-20 06:56] LABS: Eosinophil 16 % (0-5); Lymphocyte 22 % (19-41); Metamyelocyte 1 % (0-1); Monocyte 11 % (0-10); Neutrophil-Band 7 % (0-5); Neutrophil-Segmented 43 % (47-70); Platelet Estimate MKD DEC (ADEQ); Total Cells Counted 100 (MANUAL DIFF)
[2021-11-20 07:07] LABS: Absolute Neutrophil Count 2.4 X10^3/uL (2.0-7.7); Anisocytosis 1+; Hypochromasia 2+; Lymphocyte # 1.06 X10^3/ul (0.83-4.51); Microcytosis 1+; Neutrophil # 2.42 X10^3/uL (2.7-7.7)
[2021-11-20 07:08] LABS: Absolute Lymphocyte Count 1.06 X10^3/uL (0.83-4.51)
--- NOTE | 2021-11-20 07:41 | CON.PCM.UR_ITS ---
HPI Consult Data Date of Consult: 11/20/21 HPI Narrative HPI Narrative: JOCELYNE SINGLETON, is a 86 M who presents with gross hematuria, CT scan was done yesterday reviewed the CAT scan and there is no obvious source of bleeding on the CAT scan no masses tumors stones or obstruction. He does have a low blood clot inside the bladder, this morning with irrigation the urine is now crystal-clear continue with bladder irrigation for now. His platelets are very low so there is no plan at this point to taken the surgery because of his low platelets hopefully his bleeding will stop with irrigation alone we'll continue to monitor call me with questions. [facility] Medical History (Updated 11/19/21 @ 15:[address] Rian Chavez DO) Abnormal electrocardiogram Arthritis Chronic kidney disease, stage 3 CML (chronic myelocytic leukemia) CVA (cerebral vascular accident) DDD (degenerative disc disease) GERD (gastroesophageal reflux disease) H/O seborrheic keratosis Hyperlipidemia Keratoacanthoma Leukocytosis Lymphoma Prostate cancer Skin malignant neoplasm Thyroid nodule Vertigo Home Medications aspirin 81 mg tablet,delayed release 81 mg PO QODAY tab 12/17/17 [History Last Taken 11/18/21] decitabine 50 mg intravenous solution 50 mg SUBCUT QMONTH ea 07/31/21 [History Last Taken 11/19/21] ferrous sulfate 325 mg (65 mg iron) tablet 325 mg PO DAILY 07/31/21 [History Last Taken 11/19/21] loratadine 10 mg tablet 10 mg PO DAILY 07/31/21 [History Last Taken 11/19/21] Allergy/AdvReac Type Severity Reaction Status Date / Time azithromycin AdvReac Mild GI Upset Verified 11/16/21 15:36 [From Zithromax Z-Moises] atorvastatin AdvReac un able to Verified 11/16/21 15:36 focus Sulfa (Sulfonamide AdvReac Unknown Verified 11/16/21 15:36 Antibiotics) Family History Father COPD (chronic obstructive pulmonary disease) Mother Heart disease Alzheimer disease Surgical History History of radical prostatectomy (~1996) Social History Smoking Status: Former smoker quit date: 10/06/79 pack-years: 20 alcohol intake: current alcohol intake frequency: a few times a month substance use type: does not use Lab / Micro Data Result Diagrams: 11/20/21 05:40 11/20/21 05:40 Labs: Laboratory Results - last 24 hr 11/19/21 11:05: WBC 4.4, RBC 2.15 L, Hgb 6.4 L, Hct 21.8 L, MCV 101.4 H, MCH 29.8, MCHC 29.4 L, RDW Std Deviation 86.7 H, RDW Coeff of Patsy 23.8 H, Plt Count 13 L*, Immature Gran % (Auto) HEATING PLANT SUPERINTENDENT, Neut % (Auto) HEATING PLANT SUPERINTENDENT, Lymph % (Auto) HEATING PLANT SUPERINTENDENT, [place] % (Auto) HEATING PLANT SUPERINTENDENT, Eos % (Auto) HEATING PLANT SUPERINTENDENT, Baso % (Auto) HEATING PLANT SUPERINTENDENT, Absolute Neuts (auto) 2.5, Absolute Lymphs (auto) 0.39 L, Total Counted HEATING PLANT SUPERINTENDENT, Neutrophils % (Manual) 40 L, Band Neutrophils % 16 H, Lymphocytes % (Manual) 9 L, Monocytes % (Manual) 3, Eosinophils % (Manual) 20 H, Metamyelocytes % 6 H, Myelocytes % 5 H, Blast Cells % 1 H*, Nucleated RBC % 0.5, Nucleated RBCs/100 WBC 1, Diff Path Review February, Platelet Estimate MKD DEC, Hypochromasia 2+, Anisocytosis 3+ 11/19/21 11:05: Sodium 139, Potassium 4.2, Chloride 109 H, Carbon Dioxide 24.0, Anion Gap 6, BUN 49 H, Creatinine 2.08 H, Estim Creat Clear Calc 24.53, Est GFR (MDRD) Af Amer 39 L, Est GFR (MDRD) Non-Af 32 L, BUN/Creatinine Ratio 23.6 H, Glucose 114 H, Calcium 8.0 L 11/19/21 11:05: Blood Type O POSITIVE, Antibody Screen NEGATIVE 11/19/21 11:05: Crossmatch See Detail 11/19/21 11:44: Urine Color Red, Urine Clarity Cloudy, Urine pH 6.5, Ur Specific Micro 1.015, Urine Protein 500 H, Urine Glucose (UA) Normal, Urine Ketones Negative, Urine Occult Blood 250 H, Urine Nitrite Negative, Urine Bilirubin Negative, Urine Urobilinogen Normal, Ur Leukocyte Esterase 25 H, Urine RBC > 100 SEEN, Urine WBC 0 SEEN, Ur Squamous Epith Cells 0 SEEN, Urine Bacteria 0 SEEN, Urine Mucus 0 SEEN 11/20/21 05:40: WBC 4.8, RBC 2.21 L, Hgb 6.6 L, Hct 21.2 L, MCV 95.9 H D, MCH 29.9, MCHC 31.1 L D, RDW Std Deviation 85.4 H, RDW Coeff of Patsy 24.7 H, Plt Count 16 L*, MPV TNP, Neut % (Auto) Not Reportable, Absolute Neuts (auto) 2.4, Absolute Lymphs (auto) 1.06, Total Counted 100, Neutrophils % (Manual) 43 L, Band Neutrophils % 7 H, Lymphocytes % (Manual) 22, Monocytes % (Manual) 11 H, Eosinophils % (Manual) 16 H, Metamyelocytes % 1, Diff Path Review February, Platelet Estimate MKD DEC, Hypochromasia 2+, Anisocytosis 1+, Microcytosis 1+ 11/20/21 05:40: Sodium 141, Potassium 4.0, Chloride 112 H, Carbon Dioxide 26.0, Anion Gap 3 L, BUN 40 H, Creatinine 1.81 H, Estim Creat Clear Calc 28.14, Est GFR (MDRD) Af Amer 46 L, Est GFR (MDRD) Non-Af 38 L, BUN/Creatinine Ratio 22.1 H , Glucose 97, Calcium 7.5 L Radiology Impression Abdomen/Pelvis CT 11/19/21 20:01 IMPRESSION: No genitourinary stone or visible urothelial mass lesion. Note of MORTON catheter in the bladder. Note that assessment is limited without contrast. There is also some streak artifact from pelvic metallic clips. Roughly 5 cm fluid density superior pole left kidney without appreciable complexity. Abdominal aortic atherosclerosis without aneurysmal dilation. Ectasia bilateral common iliac arteries, right greater left. Advanced degenerative changes spine. Electronically Signed: Julien Zambrano DO at 21:33 EST ,
--- NOTE | 2021-11-20 08:47 | PCM.PN.HOSP ---
Subjective Subjective Feels well. Denies any current complaints. Objective Data Objective Data Vital Signs: Vital Signs Temp Pulse Resp BP Pulse Ox 36.6 C 84 18 110/56 L 98 11/20/21 08:10 11/20/21 08:10 11/20/21 08:10 11/20/21 08:10 11/20/21 08:10 Oxygen Delivery Method Room Air Weight: 67.9 kg Body Mass Index (BMI) 22.7 Intake & Output: Intake and Output for Last 24 Hours 11/18/21 11/19/21 11/20/21 23:59 23:59 23:59 Intake Total 840 / 840 895 / 895 Output Total 1600 / 1600 6000 / 6000 Balance -760 / -760 -5105 / -5105 Lab / Micro Data Result Diagrams: 11/20/21 05:40 11/20/21 05:40 Labs: Laboratory Results - last 24 hr 11/19/21 11:05: WBC 4.4, RBC 2.15 L, Hgb 6.4 L, Hct 21.8 L, MCV 101.4 H, MCH 29.8, MCHC 29.4 L, RDW Std Deviation 86.7 H, RDW Coeff of Patsy 23.8 H, Plt Count 13 L*, Immature Gran % (Auto) FILLING SEPARATOR, Neut % (Auto) FILLING SEPARATOR, Lymph % (Auto) FILLING SEPARATOR, [place] % (Auto) FILLING SEPARATOR, Eos % (Auto) FILLING SEPARATOR, Baso % (Auto) FILLING SEPARATOR, Absolute Neuts (auto) 2.5, Absolute Lymphs (auto) 0.39 L, Total Counted FILLING SEPARATOR, Neutrophils % (Manual) 40 L, Band Neutrophils % 16 H, Lymphocytes % (Manual) 9 L, Monocytes % (Manual) 3, Eosinophils % (Manual) 20 H, Metamyelocytes % 6 H, Myelocytes % 5 H, Blast Cells % 1 H*, Nucleated RBC % 0.5, Nucleated RBCs/100 WBC 1, Diff Path Review February, Platelet Estimate MKD DEC, Hypochromasia 2+, Anisocytosis 3+ 11/19/21 11:05: Sodium 139, Potassium 4.2, Chloride 109 H, Carbon Dioxide 24.0, Anion Gap 6, BUN 49 H, Creatinine 2.08 H, Estim Creat Clear Calc 24.53, Est GFR (MDRD) Af Amer 39 L, Est GFR (MDRD) Non-Af 32 L, BUN/Creatinine Ratio 23.6 H, Glucose 114 H, Calcium 8.0 L 11/19/21 11:05: Blood Type O POSITIVE, Antibody Screen NEGATIVE 11/19/21 11:05: Crossmatch See Detail 11/19/21 11:44: Urine Color Red, Urine Clarity Cloudy, Urine pH 6.5, Ur Specific [place] 1.015, Urine Protein 500 H, Urine Glucose (UA) Normal, Urine Ketones Negative, Urine Occult Blood 250 H, Urine Nitrite Negative, Urine Bilirubin Negative, Urine Urobilinogen Normal, Ur Leukocyte Esterase 25 H, Urine RBC > 100 SEEN, Urine WBC 0 SEEN, Ur Squamous Epith Cells 0 SEEN, Urine Bacteria 0 SEEN, Urine Mucus 0 SEEN 11/20/21 05:40: WBC 4.8, RBC 2.21 L, Hgb 6.6 L, Hct 21.2 L, MCV 95.9 H D, MCH 29.9, MCHC 31.1 L D, RDW Std Deviation 85.4 H, RDW Coeff of Patsy 24.7 H, Plt Count 16 L*, MPV TNP, Neut % (Auto) Not Reportable, Absolute Neuts (auto) 2.4, Absolute Lymphs (auto) 1.06, Total Counted 100, Neutrophils % (Manual) 43 L, Band Neutrophils % 7 H, Lymphocytes % (Manual) 22, Monocytes % (Manual) 11 H, Eosinophils % (Manual) 16 H, Metamyelocytes % 1, Diff Path Review May , Platelet Estimate MKD DEC, Hypochromasia 2+, Anisocytosis 1+, Microcytosis 1+ 11/20/21 05:40: Sodium 141, Potassium 4.0, Chloride 112 H, Carbon Dioxide 26.0, Anion Gap 3 L, BUN 40 H, Creatinine 1.81 H, Estim Creat Clear Calc 28.14, Est GFR (MDRD) Af Amer 46 L, Est GFR (MDRD) Non-Af 38 L, BUN/Creatinine Ratio 22.1 H, Glucose 97, Calcium 7.5 L Radiography Diagnostic Testing: Radiology Impression Abdomen/Pelvis CT 11/19/21 20:01 IMPRESSION: No genitourinary stone or visible urothelial mass lesion. Note of MORTON catheter in the bladder. Note that assessment is limited without contrast. There is also some streak artifact from pelvic metallic clips. Roughly 5 cm fluid density superior pole left kidney without appreciable complexity. Abdominal aortic atherosclerosis without aneurysmal dilation. Ectasia bilateral common iliac arteries, right greater left. Advanced degenerative changes spine. Electronically Signed: Julien Zambrano, DO at 21:33 EST , Physical Exam Const alert and no apparent distress Resp normal respiratory effort, no retractions, no use of accessory muscles and clear to auscultation bilaterally Cardio regular rate, regular rhythm, S1 normal heart sound and S2 normal heart sound GI normal to inspection, nondistended, normoactive bowel sounds, soft to palpation, non-tender and non-distended Narrative: Still with bloody urine but is light red. No clots noted in the tubing. Extremity normal to inspection Skin Skin Narrative: Port in right chest without any ecchymosis or hematoma. Neuro Sensorium / Orientation: awake and alert Psych affect normal Assessment & Plan Assessment/Plan (1) Gross hematuria: (2) Thrombocytopenia: (3) Anemia: QUALIFIERS: Anemia type: unspecified type Qualified Code(s): D64.9 - Anemia, unspecified (4) Acute on chronic renal insufficiency: PLAN: 1. Hematuria Ongoing but improving with CBI. Complicated by thrombocytopenia CBI initiated in the emergency room and will continue on the floor Seen by . No plans for any cystoscopy at this time. Likely follow-up as outpatient 2. Thrombocytopenia Ongoing suspect due to the patient's leukemia and chemotherapy No significant provement after transfusion yesterday. Will transfuse again today. 3. Acute blood loss anemia Secondary to hematuria Transfuse 1 unit in the emergency room but minimal improvement. Will transfuse another unit today. 4. Acute kidney injury Improved no baseline labs from 2012 Continue with IV fluids Consider nephrology evaluation if gets worse 5. Acute leukemia Hold decitabine Follow-up with oncology as outpatient 6. VTE prophylaxis: SCDs 7. CODE STATUS: 11/19: Addressed with the patient. Patient wishes to be DNR Comfort Care arrest no intubation. Charges/Coding Visit Charges Inpatient E&M: 65305 Subs Hosp L2
[2021-11-20] MEDS: Loratadine 10 MG Tablet PO (09:35)
[2021-11-20] MEDS: 0.9% Normal Saline 1,000 ML 150 ML IV (10:26)
--- NOTE | 2021-11-20 15:19 | NURSING ---
This nurse called in to take over care at 0815.
[2021-11-20] MEDS: Ferrous Sulfate 325 MG Tablet PO (17:10)
[2021-11-21] VITALS (15 sets, daily range): BP systolic 106–155; BP diastolic 53–72; PULSE 84–99; RESP 16–18; TEMP 36.3–37.3; O2SAT 94–100; BMI 22.7
[2021-11-21] MEDS: Acetaminophen 325 MG Tablet 650 MG PO (01:44)
[2021-11-21 05:22] LABS: Hematocrit 21.1 % (40-54); Hemoglobin 6.8 g/dL (13.0-16.5); Mean Corp Hgb Conc 32.2 g/dL (32-36); POSITIVE COUNT YES; POSITIVE DIFFERENTIAL YES; POSITIVE MORPHOLOGY YES; RBC Distribution Width CV 25.5 % (11.6-14.6); RBC Distribution Width SD 82.1 fl (35.1-43.9); Red Blood Count 2.27 M/mm3 (4.6-6.2); White Blood Count 5.3 K/mm3 (4.4-11.0)
[2021-11-21 05:30] LABS: Differential Indicated MANUAL DIFF
[2021-11-21 05:31] LABS: Platelet Count 22 K/mm3 (150-450)
[2021-11-21 05:56] LABS: Anion Gap 7 (5-15); BUN 31 mg/dL (7-18); BUN/Creat Ratio 20.8 RATIO (10-20); Calcium,Total 7.2 mg/dL (8.5-10.1); Chloride 112 mmol/L (98-107); Creatinine, Serum 1.49 mg/dL (0.70-1.30); EST Glomerular Filtration Rate 48 mL/min (>60); Est Glom Filt Rate - Afr Amer 57 mL/min (>60); Estimated Creatinine Clearance 34.18 ml/min; Glucose 103 mg/dL (74-106); Potassium 3.7 mmol/L (3.5-5.1); Sodium Level 141 mmol/L (136-145)
[2021-11-21 05:59] LABS: Total Cells Counted 100 (MANUAL DIFF)
[2021-11-21 06:03] LABS: Eosinophil 14 % (0-5); Lymphocyte 13 % (19-41); Metamyelocyte 2 % (0-1); Monocyte 7 % (0-10); Neutrophil-Band 12 % (0-5); Neutrophil-Segmented 52 % (47-70)
[2021-11-21 06:04] LABS: Platelet Estimate MKD DEC (ADEQ); Tear Drop Cell RARE
[2021-11-21 06:05] LABS: Anisocytosis 1+; Hypochromasia 1+; Macrocytosis RARE; Microcytosis RARE
[2021-11-21 06:06] LABS: Absolute Lymphocyte Count 0.69 X10^3/uL (0.83-4.51); Absolute Neutrophil Count 3.4 X10^3/uL (2.0-7.7); Lymphocyte # 0.69 X10^3/ul (0.83-4.51); Neutrophil # 3.39 X10^3/uL (2.7-7.7)
[2021-11-21] MEDS: Loratadine 10 MG Tablet PO (09:12)
[2021-11-21 09:26] LABS: Pathologist Review Reviewed
--- NOTE | 2021-11-21 09:40 | PCM.CONS.U ---
HPI Consult Data Date of Consult: 11/21/21 HPI Narrative HPI Narrative: JOCELYNE SINGLETON, is a 86 M who presents gross hematuria has a history of leukemia very low platelets platelets are much better today at 22,000 so I think it safe to taken the surgery for cystoscopy diagnostic possible intervention depending on the finding it was causing the bleeding inside the bladder multiple etiologies were possible it could be inflammation could be cancer could be a stone could be a fistula this was discussed with the patient and told the patient to be n.p.o. for this the day and will plan for intervention later today as a first available time slot available. [facility] Medical History (Updated 11/19/21 @ 15:[address] Rian Chavez DO) Abnormal electrocardiogram Arthritis Chronic kidney disease, stage 3 CML (chronic myelocytic leukemia) CVA (cerebral vascular accident) DDD (degenerative disc disease) GERD (gastroesophageal reflux disease) H/O seborrheic keratosis Hyperlipidemia Keratoacanthoma Leukocytosis Lymphoma Prostate cancer Skin malignant neoplasm Thyroid nodule Vertigo Home Medications aspirin 81 mg tablet,delayed release 81 mg PO QODAY tab 12/17/17 [History Last Taken 11/18/21] decitabine 50 mg intravenous solution 50 mg SUBCUT QMONTH ea 07/31/21 [History Last Taken 11/19/21] ferrous sulfate 325 mg (65 mg iron) tablet 325 mg PO DAILY 07/31/21 [History Last Taken 11/19/21] loratadine 10 mg tablet 10 mg PO DAILY 07/31/21 [History Last Taken 11/19/21] Allergy/AdvReac Type Severity Reaction Status Date / Time azithromycin AdvReac Mild GI Upset Verified 11/16/21 15:36 [From Zithromax Z-Moises] atorvastatin AdvReac un able to Verified 11/16/21 15:36 focus Sulfa (Sulfonamide AdvReac Unknown Verified 11/16/21 15:36 Antibiotics) Family History Father COPD (chronic obstructive pulmonary disease) Mother Heart disease Alzheimer disease Surgical History History of radical prostatectomy (~1996) Social History Smoking Status: Former smoker quit date: 10/06/79 pack-years: 20 alcohol intake: current alcohol intake frequency: a few times a month substance use type: does not use Lab / Micro Data Result Diagrams: 11/21/21 04:55 11/21/21 04:55 Labs: Laboratory Results - last 24 hr 11/19/21 11:05: Diff Path Review Reviewed 11/19/21 11:05: Crossmatch See Detail 11/21/21 04:55: WBC 5.3, RBC 2.27 L, Hgb 6.8 L, Hct 21.1 L, MCV 93.0, MCH 30.0, MCHC 32.2, RDW Std Deviation 82.1 H, RDW Coeff of Patsy 25.5 H, Plt Count 22 L*, MPV TNP, Neut % (Auto) Not Reportable, Absolute Neuts (auto) 3.4, Absolute Lymphs (auto) 0.69 L, Total Counted 100, Neutrophils % (Manual) 52, Band Neutrophils % 12 H, Lymphocytes % (Manual) 13 L, Monocytes % (Manual) 7, Eosinophils % (Manual) 14 H, Metamyelocytes % 2 H, Diff Path Review May foll, Platelet Estimate MKD DEC, Hypochromasia 1+, Anisocytosis 1+, Microcytosis RARE, Macrocytosis RARE, Tear Drop Cells RARE 11/21/21 04:55: Sodium 141, Potassium 3.7, Chloride 112 H, Carbon Dioxide 22.0, Anion Gap 7, BUN 31 H, Creatinine 1.49 H, Estim Creat Clear Calc 34.18, Est GFR (MDRD) Af Amer 57 L, Est GFR (MDRD) Non-Af 48 L, BUN/Creatinine Ratio 20.8 H, Glucose 103, Calcium 7.2 L
[2021-11-21 09:42] LABS: Pathologist Review Reviewed
--- NOTE | 2021-11-21 10:08 | EKG12_ITS ---
Test Reason : PRE OP Blood Pressure : / mmHG Vent. Rate : 084 BPM Atrial Rate : 084 BPM P-R Int : 176 ms QRS Dur : 084 ms QT Int : 362 ms P-R-T Axes : 060 -22 -32 degrees QTc Int : 427 ms Normal sinus rhythm T wave abnormality, consider lateral ischemia Abnormal ECG Confirmed by MONSE ALCANTARA, SKYE ([id number]), primer expeditor and drier LADAN WELLS ([id number]) on 11/22/2021 9:10:49 AM Referred By: ARNIE Confirmed By:SKYE SHEA MD
[2021-11-21] MEDS: 0.9% Saline Lock 10 ML Syringe IV ×2 (11:32→23:25)
[2021-11-21 13:42] LABS: Prothrombin Time (Protime)PT. 15.7 SECONDS (11.7-14.9)
[2021-11-21 13:43] LABS: International Normalized Ratio 1.3; Partial Thromboplast Time 36.6 Seconds (24.1-36.2)
--- NOTE | 2021-11-21 14:11 | PCM.PN.HOSP ---
Subjective Subjective Still with hematuria. Denies complaints. Objective Data Objective Data Vital Signs: Vital Signs Temp Pulse Resp BP Pulse Ox 36.3 C L 86 18 146/68 H 100 11/21/21 13:55 11/21/21 13:55 11/21/21 13:55 11/21/21 13:55 11/21/21 13:55 Oxygen Delivery Method Room Air Weight: 67.9 kg Body Mass Index (BMI) 22.7 Intake & Output: Intake and Output for Last 24 Hours 11/19/21 11/20/21 11/21/21 23:59 23:59 23:59 Intake Total 840 / 840 2095 / 2095 700 / 700 Output Total 1600 / 1600 7600 / 20622 23134 / 66591 Balance -760 / -760 -5505 / -7980 -02191 / -23225 Lab / Micro Data Result Diagrams: 11/21/21 04:55 11/21/21 04:55 Labs: Laboratory Results - last 24 hr 11/19/21 11:05: Diff Path Review Reviewed 11/19/21 11:05: Crossmatch See Detail 11/19/21 11:05: Crossmatch See Detail 11/20/21 05:40: Diff Path Review Reviewed 11/21/21 04:55: WBC 5.3, RBC 2.27 L, Hgb 6.8 L, Hct 21.1 L, MCV 93.0, MCH 30.0, MCHC 32.2, RDW Std Deviation 82.1 H, RDW Coeff of Patsy 25.5 H, Plt Count 22 L*, MPV TNP, Neut % (Auto) Not Reportable, Absolute Neuts (auto) 3.4, Absolute Lymphs (auto) 0.69 L, Total Counted 100, Neutrophils % (Manual) 52, Band Neutrophils % 12 H, Lymphocytes % (Manual) 13 L, Monocytes % (Manual) 7, Eosinophils % (Manual) 14 H, Metamyelocytes % 2 H, Diff Path Review May , Platelet Estimate MKD DEC, Hypochromasia 1+, Anisocytosis 1+, Microcytosis RARE, Macrocytosis RARE, Tear Drop Cells RARE 11/21/21 04:55: Sodium 141, Potassium 3.7, Chloride 112 H, Carbon Dioxide 22.0, Anion Gap 7, BUN 31 H, Creatinine 1.49 H, Estim Creat Clear Calc 34.18, Est GFR (MDRD) Af Amer 57 L, Est GFR (MDRD) Non-Af 48 L, BUN/Creatinine Ratio 20.8 H, Glucose 103, Calcium 7.2 L 11/21/21 12:25: PT Cancelled, INR Cancelled, APTT Cancelled 11/21/21 12:58: PT 15.7 H, INR 1.3, APTT 36.6 H Micro: Microbiology 11/21/21 10:03 Nasal Secretion SARS-CoV-2 Antigen (Rapid) - Final Physical Exam Const alert and no apparent distress Resp normal respiratory effort, no retractions and no use of accessory muscles Cardio regular rate, regular rhythm, S1 normal heart sound and S2 normal heart sound GI normal to inspection, nondistended, normoactive bowel sounds, soft to palpation, non-tender and non-distended Bladder / Kidney Exam: catheter in place urethral (Light red urine noted.) Extremity normal to inspection Neuro Sensorium / Orientation: awake and alert Psych affect normal Assessment & Plan Assessment/Plan (1) Gross hematuria: (2) Thrombocytopenia: (3) Anemia: QUALIFIERS: Anemia type: unspecified type Qualified Code(s): D64.9 - Anemia, unspecified (4) Acute on chronic renal insufficiency: PLAN: 1. Hematuria Ongoing but improving with CBI. Complicated by thrombocytopenia CBI initiated in the emergency room and will continue on the floor Seen by . No plans for any cystoscopy at this time. Likely follow-up as outpatient 2. Thrombocytopenia Ongoing suspect due to the patient's leukemia and chemotherapy No significant provement after transfusion yesterday. Will transfuse again today for third unit 3. Acute blood loss anemia Secondary to hematuria Ongoing. Transfuse another unit today. Total units as of right now is 3. 4. Acute kidney injury Improved no baseline labs from 2013 Continue with IV fluids 5. Acute leukemia Hold decitabine Follow-up with oncology as outpatient 6. VTE prophylaxis: SCDs 7. CODE STATUS: 11/19: Addressed with the patient. Patient wishes to be DNR Comfort Care arrest no intubation. Discussed with patient's at bedside. Charges/Coding Visit Charges Inpatient E&M: 70425 Subs Hosp L2
[2021-11-21] MEDS: Lactated Ringers 1,000 ML 15 ML IV (14:45)
[2021-11-21 16:29] LABS: Troponin-I HS 253 pg/mL (3.0-78.0)
[2021-11-21] MEDS: Lidocaine Jelly 2% 20 ML Syringe (URO-JET) 1 APPLIC (16:51)
--- NOTE | 2021-11-21 17:02 | OP.PCM_ITS ---
Report of Operation Date of Procedure: 11/21/21 Pre-Operative Diagnosis: Gross hematuria Post-Operative Diagnosis: Same, radiation cystitis Surgery/Procedure Performed:: Cystoscopy evacuation of blood clots cauterization of bleeding Description of Surgical Findings:: 86-year-old male history of prostate cancer treated with radiation the past he also has currently multiple medical problems presented the hospital with bleeding from the bladder and prostate area CAT scan was done generally show any source of the bleeding but continued bleed from the bladder and very low platelet counts in the poor medical condition so we try to do irrigation of the bladder but after 48 hours of irrigation still no improvement the bleeding continued he did get a blood transfusion again taken to the operating room to evacuate blood clots and cauterized with it was bleeding in the bladder prostate area. Patient taken back to the operating room at the smooth induction of MAC local he was placed in dorsolithotomy position. Went of the bladder with a 21 [place] rigid cystourethroscope entire length of the urethra is normal prostate was scarred down but is able get through it had a narrow channel Leadpipe looking channel inside the bladder there is a lot of blood clots these were evacuated out at the base of the bladder there was some reddish area I really did not see any active pumping but there was some reddish area in the back of the bladder and at the bladder neck there was some some bleeding sites that were cauterized and also along the prostate cauterized some there again no real sign of an active bleeder but continues count of radiation cystitis-looking area from the prostate and bladder neck area that was bleeding cauterized after this was done the bleeding stopped place a 20 [place] catheter into the bladder and put on grav ity drainage. Surgeon: ping Type of Anesthesia: General Drains: 20fr Admit VTE Documentation VTE Present on Admission: No VTE Mechan Device Prophylaxis: SCD's VTE Pharm Prophylaxis ordered?: No
[2021-11-21] MEDS: Ferrous Sulfate 325 MG Tablet PO (18:01)
[2021-11-22] VITALS (9 sets, daily range): BP systolic 104–125; BP diastolic 52–64; PULSE 62–100; RESP 16–18; TEMP 36.4–36.9; O2SAT 96–99
[2021-11-22 06:44] LABS: Absolute Lymphocyte Count 1.02 X10^3/uL (0.83-4.51); Basophil# 0.01 X10^3/uL; Basophil% 0.1 % (0-1); Eosinophil# 0.77 X10^3/uL; Eosinophils% 11.1 % (0-5); Hematocrit 25.4 % (40-54); Lymphocyte # 1.02 X10^3/ul (0.83-4.51); Lymphocyte % 14.7 % (19-41); Mean Corp Hgb Conc 31.5 g/dL (32-36); Mean Corpuscular Hgb 29.5 pg (27.0-32.0); Mean Corpuscular Volume 93.7 fL (80-94); Monocyte# 0.81 X10^3/uL; Monocyte% 11.7 % (0-10); NRBC Flagged by Analyzer 0.3 % (0-5); Neutrophil % 57.9 % (47-70); POSITIVE COUNT YES; POSITIVE MORPHOLOGY YES; RBC Distribution Width CV 23.7 % (11.6-14.6); RBC Distribution Width SD 76.9 fl (35.1-43.9); Red Blood Count 2.71 M/mm3 (4.6-6.2); White Blood Count 6.9 K/mm3 (4.4-11.0)
[2021-11-22 06:46] LABS: Differential Indicated SCAN CRITERIA MET
[2021-11-22 06:47] LABS: Platelet Count 28 K/mm3 (150-450)
[2021-11-22 07:03] LABS: Anisocytosis 1+; Differential Comment SCANNED; Macrocytosis 1+; Microcytosis RARE; Platelet Estimate MKD DEC (ADEQ)
[2021-11-22 07:47] LABS: Anion Gap 7 (5-15); BUN 29 mg/dL (7-18); BUN/Creat Ratio 17.7 RATIO (10-20); Calcium,Total 7.2 mg/dL (8.5-10.1); Chloride 110 mmol/L (98-107); Creatinine, Serum 1.64 mg/dL (0.70-1.30); EST Glomerular Filtration Rate 43 mL/min (>60); Est Glom Filt Rate - Afr Amer 51 mL/min (>60); Estimated Creatinine Clearance 31.05 ml/min; Glucose 98 mg/dL (74-106); Potassium 3.9 mmol/L (3.5-5.1); Sodium Level 140 mmol/L (136-145)
--- NOTE | 2021-11-22 07:47 | PCM.CONS.U ---
HPI Consult Data Date of Consult: 11/22/21 HPI Narrative HPI Narrative: JOCELYNE SINGLETON, is a 86 M who presents s/p cystoscop evacaution of blood clots and cauterization at bladder neck no tumor, more consistent with radiation cystitis and plus low platelets and compromised coagulation factors so continue with zuñiga will have nursing staff flush zuñiga every two hours, he can go home once urine is clear? [facility] Medical History Abnormal electrocardiogram Arthritis Chronic kidney disease, stage 3 CML (chronic myelocytic leukemia) CVA (cerebral vascular accident) DDD (degenerative disc disease) GERD (gastroesophageal reflux disease) H/O seborrheic keratosis Hyperlipidemia Keratoacanthoma Leukocytosis Lymphoma Prostate cancer Skin malignant neoplasm Thyroid nodule Vertigo Home Medications aspirin 81 mg tablet,delayed release 81 mg PO QODAY tab 12/17/17 [History Last Taken 11/18/21] decitabine 50 mg intravenous solution 50 mg SUBCUT QMONTH ea 07/31/21 [History Last Taken 11/19/21] ferrous sulfate 325 mg (65 mg iron) tablet 325 mg PO DAILY 07/31/21 [History Last Taken 11/19/21] loratadine 10 mg tablet 10 mg PO DAILY 07/31/21 [History Last Taken 11/19/21] Allergy/AdvReac Type Severity Reaction Status Date / Time azithromycin AdvReac Mild GI Upset Verified 11/16/21 15:36 [From Zithromax Z-Moises] atorvastatin AdvReac un able to Verified 11/16/21 15:36 focus Sulfa (Sulfonamide AdvReac Unknown Verified 11/16/21 15:36 Antibiotics) Family History Father COPD (chronic obstructive pulmonary disease) Mother Heart disease Alzheimer disease Surgical History History of radical prostatectomy (~1996) Social History Smoking Status: Former smoker quit date: 10/06/79 pack-years: 20 alcohol intake: current alcohol intake frequency: a few times a month substance use type: does not use Lab / Micro Data Result Diagrams: 11/22/21 05:57 11/21/21 04:55 Labs: Laboratory Results - last 24 hr 11/19/21 11:05: Diff Path Review Reviewed 11/19/21 11:05: Crossmatch See Detail 11/20/21 05:40: Diff Path Review Reviewed 11/21/21 12:25: PT Cancelled, INR Cancelled, APTT Cancelled 11/21/21 12:58: PT 15.7 H, INR 1.3, APTT 36.6 H 11/21/21 16:00: Troponin I High Sens 253 H* 11/22/21 05:57: WBC 6.9, RBC 2.71 L, Hgb 8.0 L, Hct 25.4 L, MCV 93.7, MCH 29.5, MCHC 31.5 L, RDW Std Deviation 76.9 H, RDW Coeff of Patsy 23.7 H, Plt Count 28 L*, MPV TNP, Immature Gran % (Auto) 4.500 H, Neut % (Auto) 57.9, Lymph % (Auto) 14.7 L, [place] % (Auto) 11.7 H, Eos % (Auto) 11.1 H, Baso % (Auto) 0.1, Absolute Neuts (auto) 4.0, Absolute Lymphs (auto) 1.02, Nucleated RBC % 0.3, Differential Comment SCANNED, Diff Path Review May foll, Platelet Estimate MKD DEC, Anisocytosis 1+, Microcytosis RARE, Macrocytosis 1+ Micro: Microbiology 11/21/21 10:03 Nasal Secretion SARS-CoV-2 Antigen (Rapid) - Final
[2021-11-22] MEDS: Loratadine 10 MG Tablet PO (10:11)
[2021-11-22 13:01] LABS: Pathologist Review Reviewed
[2021-11-22 13:12] LABS: Pathologist Review Reviewed
--- NOTE | 2021-11-22 15:00 | PN.HOSP_ITS ---
Subjective Subjective Feels okay. Still with hematuria. Continuous bladder irrigation has been turned off. Denies any chest pain or shortness of breath. Objective Data Objective Data Vital Signs: Vital Signs Temp Pulse Resp BP Pulse Ox 36.6 C 62 16 104/53 L 98 11/22/21 09:10 11/22/21 09:10 11/22/21 09:10 11/22/21 09:10 11/22/21 09:10 Oxygen Flow Rate (L/min) 2 Oxygen Delivery Method Room Air Weight: 67.9 kg Body Mass Index (BMI) 22.7 Intake & Output: Intake and Output for Last 24 Hours 11/20/21 11/21/21 11/22/21 23:59 23:59 23:59 Intake Total 2095 / 2095 949.5 / 949.5 120 / 120 Output Total 7600 / 74324 48435 / 35887 750 / 750 Balance -5505 / -7980 -53463.5 / -04412.5 -630 / -630 Lab / Micro Data Result Diagrams: 11/22/21 05:57 11/22/21 05:57 Labs: Laboratory Results - last 24 hr 11/21/21 04:55: Diff Path Review Reviewed 11/21/21 16:00: Troponin I High Sens 253 H* 11/22/21 05:57: WBC 6.9, RBC 2.71 L, Hgb 8.0 L, Hct 25.4 L, MCV 93.7, MCH 29.5, MCHC 31.5 L, RDW Std Deviation 76.9 H, RDW Coeff of Patsy 23.7 H, Plt Count 28 L*, MPV TNP, Immature Gran % (Auto) 4.500 H, Neut % (Auto) 57.9, Lymph % (Auto) 14.7 L, [place] % (Auto) 11.7 H, Eos % (Auto) 11.1 H, Baso % (Auto) 0.1, Absolute Neuts (auto) 4.0, Absolute Lymphs (auto) 1.02, Nucleated RBC % 0.3, Differential Comment SCANNED, Diff Path Review Reviewed, Platelet Estimate MKD DEC, Anisocytosis 1+, Microcytosis RARE, Macrocytosis 1+ 11/22/21 05:57: Sodium 140, Potassium 3.9, Chloride 110 H, Carbon Dioxide 23.0, Anion Gap 7, BUN 29 H, Creatinine 1.64 H, Estim Creat Clear Calc 31.05, Est GFR (MDRD) Af Amer 51 L, Est GFR (MDRD) Non-Af 43 L, BUN/Creatinine Ratio 17.7, Glucose 98, Calcium 7.2 L 11/22/21 11:23: Blood Type O POSITIVE Micro: Microbiology 11/21/21 10:03 Nasal Secretion SARS-CoV-2 Antigen (Rapid) - Final Physical Exam Const alert and no apparent distress HEENT head/scalp atraumatic Head and Scalp: normocephalic Resp normal respiratory effort, no retractions and no use of accessory muscles Cardio regular rate, regular rhythm, S1 normal heart sound and S2 normal heart sound GI normal to inspection, nondistended, normoactive bowel sounds, soft to palpation, non-tender and non-distended Bladder / Kidney Exam: catheter in place urethral (Dark urine in the Frias bag and tubing) Extremity normal to inspection and full ROM Skin no rashes or lesions noted and no wounds Assessment & Plan Assessment/Plan (1) Gross hematuria: (2) Thrombocytopenia: (3) Anemia: QUALIFIERS: Anemia type: unspecified type Qualified Code(s): D64.9 - Anemia, unspecified (4) Acute on chronic renal insufficiency: (5) NSTEMI, initial episode of care: PLAN: 1. Hematuria Ongoing CBI off Complicated by thrombocytopenia Discussed with Dr. 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 2. Thrombocytopenia Ongoing but improved with transfusions suspect due to the patient's leukemia and chemotherapy No significant provement after transfusion yesterday. Will transfuse again today for third unit 11/22: Will transfuse another unit of platelets his hematuria still ongoing despite his platelets being better. 3. Acute blood loss anemia Secondary to hematuria Improved Status post 3 units 11/22: No need for transfusion at this time as hemoglobin is 8. Continue to monitor. 4. Acute kidney injury Improved no baseline labs from 2012 Continue with IV fluids 5. Acute leukemia Hold decitabine Follow-up with oncology as outpatient 6. VTE prophylaxis: SCDs 7. CODE STATUS: 11/19: Addressed with the patient. Patient wishes to be DNR Comfort Care arrest no intubation. Discussed with patient's at bedside. Charges/Coding Visit Charges Inpatient E&M: 06943 Subs Hosp L2
[2021-11-22] MEDS: 0.9% Saline Lock 10 ML Syringe IV ×2 (16:36→21:26)
[2021-11-22] MEDS: Ferrous Sulfate 325 MG Tablet PO (17:00)
[2021-11-22] MEDS: Bisacodyl 5 MG Tablet 10 MG PO ×2 (17:08→20:17)
[2021-11-23] VITALS (7 sets, daily range): BP systolic 102–120; BP diastolic 47–59; PULSE 60–99; RESP 16–18; TEMP 36.6–37.2; O2SAT 95–100
[2021-11-23 08:29] LABS: Hematocrit 25.5 % (40-54); Hemoglobin 8.2 g/dL (13.0-16.5); Mean Corp Hgb Conc 32.2 g/dL (32-36); Mean Corpuscular Hgb 30.1 pg (27.0-32.0); Mean Corpuscular Volume 93.8 fL (80-94); POSITIVE COUNT YES; POSITIVE MORPHOLOGY YES; RBC Distribution Width CV 23.4 % (11.6-14.6); RBC Distribution Width SD 76.1 fl (35.1-43.9); Red Blood Count 2.72 M/mm3 (4.6-6.2); White Blood Count 7.3 K/mm3 (4.4-11.0)
[2021-11-23 08:31] LABS: Differential Indicated MANUAL DIFF
[2021-11-23 08:33] LABS: Platelet Count 26 K/mm3 (150-450)
[2021-11-23 08:37] LABS: Anion Gap 6 (5-15); BUN 27 mg/dL (7-18); BUN/Creat Ratio 16.7 RATIO (10-20); Calcium,Total 7.2 mg/dL (8.5-10.1); Chloride 112 mmol/L (98-107); Creatinine, Serum 1.62 mg/dL (0.70-1.30); EST Glomerular Filtration Rate 43 mL/min (>60); Est Glom Filt Rate - Afr Amer 52 mL/min (>60); Estimated Creatinine Clearance 31.44 ml/min; Glucose 100 mg/dL (74-106); Potassium 3.3 mmol/L (3.5-5.1); Sodium Level 142 mmol/L (136-145)
[2021-11-23 08:59] LABS: Anisocytosis 1+; Basophil 2 % (0-1); Eosinophil 10 % (0-5); Lymphocyte 12 % (19-41); Metamyelocyte 1 % (0-1); Monocyte 18 % (0-10); Neutrophil-Segmented 57 % (47-70); Platelet Estimate MKD DEC (ADEQ); Red Cell Morphology N CHROM NORMAL (NORM C&C); Total Cells Counted 100 (MANUAL DIFF)
[2021-11-23 09:00] LABS: Absolute Lymphocyte Count 0.88 X10^3/uL (0.83-4.51); Absolute Neutrophil Count 4.2 X10^3/uL (2.0-7.7); Lymphocyte # 0.88 X10^3/ul (0.83-4.51)
--- NOTE | 2021-11-23 09:55 | PN.HOSP_ITS ---
Subjective Subjective Had 2 large BMs yesterday. Still with hematuria. Objective Data Objective Data Vital Signs: Vital Signs Temp Pulse Resp BP Pulse Ox 37.2 C 90 18 102/49 L 98 11/23/21 09:04 11/23/21 09:04 11/23/21 09:04 11/23/21 09:04 11/23/21 09:04 Oxygen Flow Rate (L/min) 2 Oxygen Delivery Method Room Air Weight: 67.9 kg Body Mass Index (BMI) 22.7 Intake & Output: Intake and Output for Last 24 Hours 11/21/21 11/22/21 11/23/21 23:59 23:59 23:59 Intake Total 949.5 / 949.5 860 / 860 200 / 200 Output Total 26959 / 10672 1600 / 1600 350 / 350 Balance -42875.5 / -97168.5 -740 / -740 -150 / -150 Lab / Micro Data Result Diagrams: 11/23/21 08:04 11/23/21 08:04 Labs: Laboratory Results - last 24 hr 11/21/21 04:55: Diff Path Review Reviewed 11/22/21 05:57: Diff Path Review Reviewed 11/22/21 11:23: Blood Type O POSITIVE 11/23/21 08:04: WBC 7.3, RBC 2.72 L, Hgb 8.2 L, Hct 25.5 L, MCV 93.8, MCH 30.1, MCHC 32.2, RDW Std Deviation 76.1 H, RDW Coeff of Patsy 23.4 H, Plt Count 26 L*, Neut % (Auto) Not Reportable, Absolute Neuts (auto) 4.2, Absolute Lymphs (auto) 0.88, Total Counted 100, Neutrophils % (Manual) 57, Lymphocytes % (Manual) 12 L, Monocytes % (Manual) 18 H, Eosinophils % (Manual) 10 H, Basophils % (Manual) 2 H , Metamyelocytes % 1, Diff Path Review May , Platelet Estimate MKD DEC, RBC Morphology N CHROM, Anisocytosis 1+ 11/23/21 08:04: Sodium 142, Potassium 3.3 L, Chloride 112 H, Carbon Dioxide 24.0, Anion Gap 6, BUN 27 H, Creatinine 1.62 H, Estim Creat Clear Calc 31.44, Est GFR (MDRD) Af Amer 52 L, Est GFR (MDRD) Non-Af 43 L, BUN/Creatinine Ratio 16.7, Glucose 100, Calcium 7.2 L Micro: Microbiology 11/21/21 10:03 Nasal Secretion SARS-CoV-2 Antigen (Rapid) - Final Physical Exam Const alert and no apparent distress Resp normal respiratory effort, no retractions, no use of accessory muscles and clear to auscultation bilaterally Cardio regular rate, regular rhythm, S1 normal heart sound and S2 normal heart sound GI normal to inspection, nondistended, normoactive bowel sounds, soft to palpation, non-tender and non-distended Bladder / Kidney Exam: catheter in place urethral (slightly less dark red urine in zuñiga. ) Extremity normal to inspection Skin no rashes or lesions noted Neuro Sensorium / Orientation: awake and alert Psych affect normal Assessment & Plan Assessment/Plan (1) Gross hematuria: (2) Thrombocytopenia: (3) Anemia: QUALIFIERS: Anemia type: unspecified type Qualified Code(s): D64.9 - Anemia, unspecified (4) Acute on chronic renal insufficiency: (5) NSTEMI, initial episode of care: PLAN: 1. Hematuria Ongoing CBI off Complicated by thrombocytopenia Discussed with Dr. 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 2. Thrombocytopenia Ongoing but improved with transfusions suspect due to the patient's leukemia and chemotherapy No significant provement after transfusion yesterday. Will transfuse again today for third unit 11/22: Will transfuse another unit of platelets his hematuria still ongoing despite his platelets being better. 11/23: still with hematuria, though platelets overall improved. Will transfuse again. 3. Acute blood loss anemia Secondary to hematuria Improved Status post 3 units 11/22: No need for transfusion at this time as hemoglobin is 8. Continue to monitor. 11/23: Hg 8.2. 4. Acute kidney injury Improved no baseline labs from 2012 5. Acute leukemia Hold decitabine Follow-up with oncology as outpatient 6. VTE prophylaxis: SCDs 7. CODE STATUS: 11/19: Addressed with the patient. Patient wishes to be DNR Comfort Care arrest no intubation. Charges/Coding Visit Charges Inpatient E&M: 04084 Subs Hosp L2
[2021-11-23] MEDS: Loratadine 10 MG Tablet PO (09:58)
[2021-11-23] MEDS: Potassium Chloride Oral Tablet 20 MEQ 40 MEQ PO (09:58)
[2021-11-23] MEDS: Ferrous Sulfate 325 MG Tablet PO (17:34)
[2021-11-23] MEDS: 0.9% Saline Lock 10 ML Syringe IV (17:34)
[2021-11-24] VITALS (7 sets, daily range): BP systolic 100–120; BP diastolic 44–64; PULSE 93–107; RESP 16–18; TEMP 36.6–37.8; O2SAT 93–100
[2021-11-24 06:42] LABS: Hemoglobin 7.4 g/dL (13.0-16.5); Mean Corp Hgb Conc 30.8 g/dL (32-36); Mean Corpuscular Hgb 29.1 pg (27.0-32.0); Mean Corpuscular Volume 94.5 fL (80-94); POSITIVE COUNT YES; POSITIVE DIFFERENTIAL YES; POSITIVE MORPHOLOGY YES; RBC Distribution Width CV 23.6 % (11.6-14.6); RBC Distribution Width SD 76.4 fl (35.1-43.9); Red Blood Count 2.54 M/mm3 (4.6-6.2)
[2021-11-24 06:46] LABS: Differential Indicated MANUAL DIFF
[2021-11-24 06:48] LABS: Platelet Count 27 K/mm3 (150-450)
[2021-11-24 07:01] LABS: Metamyelocyte 3 % (0-1); Neutrophil-Band 7 % (0-5); Neutrophil-Segmented 64 % (47-70); Total Cells Counted 100 (MANUAL DIFF)
[2021-11-24 07:02] LABS: Basophil 1 % (0-1); Eosinophil 5 % (0-5); Lymphocyte 5 % (19-41); Monocyte 15 % (0-10); Platelet Estimate MKD DEC (ADEQ)
[2021-11-24 07:04] LABS: Absolute Neutrophil Count 5.7 X10^3/uL (2.0-7.7); Anisocytosis 1+; Hypochromasia 1+; Lymphocyte # 5.68 X10^3/ul (0.83-4.51); Macrocytosis RARE; Microcytosis RARE
[2021-11-24] MEDS: Loratadine 10 MG Tablet PO (08:48)
--- NOTE | 2021-11-24 11:24 | CON.PCM.UR_ITS ---
HPI Consult Data Date of Consult: 11/24/21 HPI Narrative HPI Narrative: JOCELYNE SINGLETON, is a 86 M who presents with bleeding took to Surgery earlier this week, no urine tea color, no intervention necessary from urology he can go home with zuñiga 20 fr, call with questions. [facility] Medical History (Updated 11/22/21 @ 15:[address] Rian Chavez DO) Abnormal electrocardiogram Arthritis Chronic kidney disease, stage 3 CML (chronic myelocytic leukemia) CVA (cerebral vascular accident) DDD (degenerative disc disease) GERD (gastroesophageal reflux disease) H/O seborrheic keratosis Hyperlipidemia Keratoacanthoma Leukocytosis Lymphoma Prostate cancer Skin malignant neoplasm Thyroid nodule Vertigo Home Medications aspirin 81 mg tablet,delayed release 81 mg PO QODAY tab 12/17/17 [History Last Taken 11/18/21] decitabine 50 mg intravenous solution 50 mg SUBCUT QMONTH ea 07/31/21 [History Last Taken 11/19/21] ferrous sulfate 325 mg (65 mg iron) tablet 325 mg PO DAILY 07/31/21 [History Last Taken 11/19/21] loratadine 10 mg tablet 10 mg PO DAILY 07/31/21 [History Last Taken 11/19/21] Allergy/AdvReac Type Severity Reaction Status Date / Time azithromycin AdvReac Mild GI Upset Verified 11/16/21 15:36 [From Zithromax Z-Moises] atorvastatin AdvReac un able to Verified 11/16/21 15:36 focus Sulfa (Sulfonamide AdvReac Unknown Verified 11/16/21 15:36 Antibiotics) Family History Father COPD (chronic obstructive pulmonary disease) Mother Heart disease Alzheimer disease Surgical History History of radical prostatectomy (~1996) Social History Smoking Status: Former smoker quit date: 10/06/79 pack-years: 20 alcohol intake: current alcohol intake frequency: a few times a month substance use type: does not use Lab / Micro Data Result Diagrams: 11/24/21 06:15 11/23/21 08:04 Labs: Laboratory Results - last 24 hr 02/19/22 06:15: WBC 8.0, RBC 2.54 L, Hgb 7.4 L, Hct 24.0 L, MCV 94.5 H, MCH 29.1, MCHC 30.8 L, RDW Std Deviation 76.4 H, RDW Coeff of Patsy 23.6 H, Plt Count 27 L*, MPV TNP, Neut % (Auto) Not Reportable, Absolute Neuts (auto) 5.7, Absolute Lymphs (auto) 0.40 L, Total Counted 100, Neutrophils % (Manual) 64, Band Neutrophils % 7 H, Lymphocytes % (Manual) 5 L, Monocytes % (Manual) 15 H, Eosinophils % (Manual) 5, Basophils % (Manual) 1, Metamyelocytes % 3 H, Diff Path Review May foll, Platelet Estimate MKD DEC, Hypochromasia 1+, Anisocytosis 1+, Microcytosis RARE, Macrocytosis RARE
--- NOTE | 2021-11-24 12:42 | PCM.PN.HOSP ---
Subjective Subjective Bored and ready to get out of hospital. Objective Data Objective Data Vital Signs: Vital Signs Temp Pulse Resp BP Pulse Ox 37.0 C 105 H 18 103/60 99 11/24/21 09:00 11/24/21 09:00 11/24/21 09:00 11/24/21 09:00 11/24/21 09:00 Oxygen Flow Rate (L/min) 2 Oxygen Delivery Method Room Air Weight: 67.9 kg Body Mass Index (BMI) 22.7 Intake & Output: Intake and Output for Last 24 Hours 11/22/21 11/23/21 11/24/21 23:59 23:59 23:59 Intake Total 860 / 860 1230 / 1230 420 / 420 Output Total 1600 / 1600 1350 / 1350 875 / 875 Balance -740 / -740 -120 / -120 -455 / -455 Lab / Micro Data Result Diagrams: 11/24/21 06:15 11/23/21 08:04 Labs: Laboratory Results - last 24 hr 11/24/21 06:15: WBC 8.0, RBC 2.54 L, Hgb 7.4 L, Hct 24.0 L, MCV 94.5 H, MCH 29.1, MCHC 30.8 L, RDW Std Deviation 76.4 H, RDW Coeff of Patsy 23.6 H, Plt Count 27 L*, MPV TNP, Neut % (Auto) Not Reportable, Absolute Neuts (auto) 5.7, Absolute Lymphs (auto) 0.40 L, Total Counted 100, Neutrophils % (Manual) 64, Band Neutrophils % 7 H, Lymphocytes % (Manual) 5 L, Monocytes % (Manual) 15 H, Eosinophils % (Manual) 5, Basophils % (Manual) 1, Metamyelocytes % 3 H, Diff Path Review May , Platelet Estimate MKD DEC, Hypochromasia 1+, Anisocytosis 1+, Microcytosis RARE, Macrocytosis RARE Micro: Microbiology 11/21/21 10:03 Nasal Secretion SARS-CoV-2 Antigen (Rapid) - Final Physical Exam Const alert and no apparent distress Resp normal respiratory effort, no retractions, no use of accessory muscles and clear to auscultation bilaterally Cardio regular rate, regular rhythm, S1 normal heart sound and S2 normal heart sound GI normal to inspection, nondistended, normoactive bowel sounds, soft to palpation, non-tender and non-distended Bladder / Kidney Exam: catheter in place urethral (Still with blood-tinged urine still rather dark but no clots noted.) Extremity normal to inspection Assessment & Plan Assessment/Plan (1) Gross hematuria: (2) Thrombocytopenia: (3) Anemia: QUALIFIERS: Anemia type: unspecified type Qualified Code(s): D64.9 - Anemia, unspecified (4) Acute on chronic renal insufficiency: (5) NSTEMI, initial episode of care: PLAN: 1. Hematuria Ongoing but overall improved CBI off Complicated by thrombocytopenia Discussed with Dr. 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 Thrombocytopenia Ongoing but improved with transfusions suspect due to the patient's leukemia and chemotherapy No significant provement after transfusion yesterday. Will transfuse again today for third unit 11/22: Will transfuse another unit of platelets his hematuria still ongoing despite his platelets being better. 11/23: still with hematuria, though platelets overall improved. Will transfuse again. 11/24: Hematuria still ongoing so we will transfuse another unit. Unfortunately patient does not receive his units until late in the afternoon or evening 3. Acute blood loss anemia Secondary to hematuria Improved Status post 3 units 11/22: No need for transfusion at this time as hemoglobin is 8. Continue to monitor. 11/23: Hg 8.2. 11/24: Hemoglobin 7.4, lower today but no need for transfusions. 4. Acute kidney injury Improved no baseline labs from 2012 5. Acute leukemia Hold decitabine Follow-up with oncology as outpatient 6. VTE prophylaxis: SCDs 7. CODE STATUS: 11/19: Addressed with the patient. Patient wishes to be DNR Comfort Care arrest no intubation. 8. Disposition: Pending. Biscuit once is hematuria resolves and his hemoglobin platelets are relatively stable discussed with the patient's .
[2021-11-24] MEDS: Ferrous Sulfate 325 MG Tablet PO (16:15)
[2021-11-24] MEDS: 0.9% Saline Lock 10 ML Syringe IV (20:15)
[2021-11-25 00:52] VITALS: BP 107/54; PULSE 96; RESP 16; TEMP 37.1; O2SAT 97
[2021-11-25 05:12] VITALS: BP 104/56; PULSE 66; RESP 16; TEMP 37.3; O2SAT 97
[2021-11-25 05:15] VITALS: O2SAT 97
[2021-11-25 06:44] LABS: Hematocrit 24.3 % (40-54); Hemoglobin 7.8 g/dL (13.0-16.5); Mean Corp Hgb Conc 32.1 g/dL (32-36); Mean Corpuscular Hgb 30.2 pg (27.0-32.0); Mean Corpuscular Volume 94.2 fL (80-94); POSITIVE COUNT YES; POSITIVE DIFFERENTIAL YES; POSITIVE MORPHOLOGY YES; RBC Distribution Width CV 23.3 % (11.6-14.6); RBC Distribution Width SD 78.4 fl (35.1-43.9); Red Blood Count 2.58 M/mm3 (4.6-6.2); White Blood Count 6.9 K/mm3 (4.4-11.0)
[2021-11-25 06:47] LABS: Differential Indicated MANUAL DIFF
[2021-11-25 06:48] LABS: Platelet Count 25 K/mm3 (150-450)
[2021-11-25 07:21] LABS: Eosinophil 11 % (0-5); Lymphocyte 13 % (19-41); Metamyelocyte 1 % (0-1); Monocyte 12 % (0-10); Myelocyte 4 % (0-0); Neutrophil-Band 3 % (0-5); Neutrophil-Segmented 56 % (47-70); Total Cells Counted 100 (MANUAL DIFF)
[2021-11-25 07:23] LABS: Absolute Neutrophil Count 3.1 X10^3/uL (2.0-7.7); Neutrophil # 3.05 X10^3/uL (2.7-7.7)
[2021-11-25 07:24] LABS: Platelet Estimate MKD DEC (ADEQ)
[2021-11-25 07:25] LABS: Anisocytosis 1+; Microcytosis 1+
[2021-11-25 07:26] LABS: Schistocytes 1+
[2021-11-25] MEDS: Loratadine 10 MG Tablet PO (07:30)
[2021-11-25 07:41] VITALS: O2SAT 97
[2021-11-25 08:37] VITALS: BP 116/55; PULSE 99; RESP 18; TEMP 37.1; O2SAT 98
--- NOTE | 2021-11-25 12:29 | PN.HOSP_ITS ---
Subjective Subjective Denies any complaints. Still with hematuria, but no blood clots. Objective Data Objective Data Vital Signs: Vital Signs Temp Pulse Resp BP Pulse Ox 37.1 C 99 18 116/55 L 98 11/25/21 08:37 11/25/21 08:37 11/25/21 08:37 11/25/21 08:37 11/25/21 08:37 Oxygen Flow Rate (L/min) 2 Oxygen Delivery Method Room Air Weight: 67.9 kg Body Mass Index (BMI) 22.7 Intake & Output: Intake and Output for Last 24 Hours 11/23/21 11/24/21 11/25/21 23:59 23:59 23:59 Intake Total 1230 / 1230 860 / 860 Output Total 1350 / 1350 1525 / 1525 400 / 400 Balance -120 / -120 -665 / -665 -400 / -400 Lab / Micro Data Result Diagrams: 11/25/21 05:04 11/23/21 08:04 Labs: Laboratory Results - last 24 hr 11/25/21 05:04: WBC 6.9, RBC 2.58 L, Hgb 7.8 L, Hct 24.3 L, MCV 94.2 H, MCH 30.2, MCHC 32.1, RDW Std Deviation 78.4 H, RDW Coeff of Patsy 23.3 H, Plt Count 25 L*, Neut % (Auto) Not Reportable, Absolute Neuts (auto) 3.1, Absolute Lymphs (auto) 0.90, Total Counted 100, Neutrophils % (Manual) 56, Band Neutrophils % 3, Lymphocytes % (Manual) 13 L, Monocytes % (Manual) 12 H, Eosinophils % (Manual) 11 H, Metamyelocytes % 1, Myelocytes % 4 H, Diff Path Review May , Platelet Estimate MKD DEC, Anisocytosis 1+, Microcytosis 1+, Schistocytes 1+ 11/25/21 08:23: Blood Type O POSITIVE Micro: Microbiology 11/21/21 10:03 Nasal Secretion SARS-CoV-2 Antigen (Rapid) - Final Physical Exam Const alert and no apparent distress Resp normal respiratory effort, no retractions, no use of accessory muscles and clear to auscultation bilaterally Cardio regular rate, regular rhythm, S1 normal heart sound and S2 normal heart sound GI normal to inspection, nondistended, normoactive bowel sounds, soft to palpation, non-tender and non-distended Bladder / Kidney Exam: catheter in place urethral (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 Hematuria Ongoing but overall improved CBI off Complicated by thrombocytopenia Discussed with Dr. 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 Thrombocytopenia Ongoing but improved with transfusions suspect due to the patient's leukemia and chemotherapy No significant provement after transfusion yesterday. Will transfuse again today for third unit 11/22: Will transfuse another unit of platelets his hematuria still ongoing despite his platelets being better. 11/23: still with hematuria, though platelets overall improved. Will transfuse again. 11/24: Hematuria still ongoing so we will transfuse another unit. Unfortunately patient does not receive his units until late in the afternoon or evening 11/25: Hematuria improved. Will transfuse another unit of platelets 3. Acute blood loss anemia Secondary to hematuria Improved Status post 3 units 11/22: No need for transfusion at this time as hemoglobin is 8. Continue to monitor. 11/23: Hg 8.2. 11/24: Hemoglobin 7.4, lower today but no need for transfusions. 11/25: Hemoglobin 7.8. 4. Acute kidney injury Improved no baseline labs from 2012 5. Acute leukemia Hold decitabine Follow-up with oncology as outpatient 6. VTE prophylaxis: SCDs 7. CODE STATUS: 11/19: Addressed with the patient. Patient wishes to be DNR Comfort Care arrest no intubation. 8. Disposition: Pending. Patient received platelets today and if can received as at a reasonable time the plan is to discharge patient afterwards, assuming no other issues. We will remove the Frias catheter. Charges/Coding Visit Charges Inpatient E&M: 61773 Subs Hosp L2
--- NOTE | 2021-11-25 12:33 | PCM.DC ---
Discharge Instructions Diet Discharge Diet: No restrictions Dressing / Incision Call your doctor if you observe: Inability to urinate, Dizziness, Fainting spells and - (worsening blood in urine. blood clots in urine.) Follow Up Care Test Results: Test results from this visit will be discussed in further detail at your follow-up appointment, if applicable. Discharge Plan Admission Admit Date/Time: 11/19/21 15:05 Primary Reason for Your Visit: hematuria Attending Provider: Rian Chavez Primary Care Provider: Renata Rodriguez Consulting Providers: Jed Ordonez Discharge Orders/Prescriptions Prescriptions: Continued loratadine [Claritin] 10 mg tablet 10 mg PO DAILY RF: 0 ferrous sulfate 325 mg (65 mg iron) tablet 325 mg PO DAILY RF: 0 decitabine [Dacogen] 50 mg recon soln 50 mg subcut QMONTH RF: 0 Discontinued aspirin [Adult Aspirin Regimen] 81 mg tablet,delayed release (DR/EC) 81 mg PO QODAY RF: 0 Referrals / Follow Up: Renata Rodriguez MD [Primary Care Provider] - Disposition Disposition (needs filled in before D/C Order can be placed): Home, Self Care
--- NOTE | 2021-11-25 12:36 | DS.PCM_ITS ---
Providers Date of Admission: 11/19/21 Primary Care Physician: Dr. Renata Rodriguez MD Consultations 11/19/21 15:13 Consult: Urology Routine Consulting Provider: Jed Ordonez Reason for Consult: hematuria EMERGENT Consult: No MD Notified: Yes Date Notified: 11/19/21 Time Notified: 15:12 Method of Notification: paged via electrical logging operator Reason For Visit: HEMATURIA Diagnosis Discharge Diagnosis (1) Gross hematuria: Status: Acute Code(s): R31.0 - Gross hematuria (2) Thrombocytopenia: Status: Acute Code(s): D69.6 - Thrombocytopenia, unspecified (3) Anemia: Status: Acute Code(s): D64.9 - Anemia, unspecified Qualifiers: Anemia type: unspecified type Qualified Code(s): D64.9 - Anemia, unspecified (4) Acute on chronic renal insufficiency: Status: Chronic Code(s): N28.9 - Disorder of kidney and ureter, unspecified; N18.9 - Chronic kidney disease, unspecified (5) NSTEMI, initial episode of care: Status: Acute Code(s): I21.4 - Non-ST elevation (NSTEMI) myocardial infarction Medications at Discharge Home Medications decitabine 50 mg intravenous solution 50 mg SUBCUT QMONTH ea 07/31/21 ferrous sulfate 325 mg (65 mg iron) tablet 325 mg PO DAILY 07/31/21 loratadine 10 mg tablet 10 mg PO DAILY 07/31/21 Hospital Course Operations None Procedures - (cystoscopy) Summary of Care Provided Minutes Spent on Discharge: 32 Hospital Course: 1. Hematuria Ongoing but overall improved CBI off Complicated by thrombocytopenia Discussed with Dr. 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 Thrombocytopenia Ongoing but improved with transfusions suspect due to the patient's leukemia and chemotherapy No significant provement after transfusion yesterday. Will transfuse again today for third unit 11/22: Will transfuse another unit of platelets his hematuria still ongoing despite his platelets being better. 11/23: still with hematuria, though platelets overall improved. Will transfuse again. 11/24: Hematuria still ongoing so we will transfuse another unit. Unfortunately patient does not receive his units until late in the afternoon or evening 11/25: Hematuria improved. Will transfuse another unit of platelets 3. Acute blood loss anemia Secondary to hematuria Improved Status post 3 units 11/22: No need for transfusion at this time as hemoglobin is 8. Continue to monitor. 11/23: Hg 8.2. 11/24: Hemoglobin 7.4, lower today but no need for transfusions. 11/25: Hemoglobin 7.8. 4. Acute kidney injury Improved no baseline labs from 2012 5. Acute leukemia Hold decitabine Follow-up with oncology as outpatient Weight / BMI Weight Weight: 67.9 kg Body Mass Index (BMI) 22.7 ABG / Lab / Microbiology Data Result Diagrams: 11/25/21 05:04 11/23/21 08:04 Laboratory: Laboratory Results - last 24 hr 11/25/21 05:04: WBC 6.9, RBC 2.58 L, Hgb 7.8 L, Hct 24.3 L, MCV 94.2 H, MCH 30.2, MCHC 32.1, RDW Std Deviation 78.4 H, RDW Coeff of Patsy 23.3 H, Plt Count 25 L*, Neut % (Auto) Not Reportable, Absolute Neuts (auto) 3.1, Absolute Lymphs (auto) 0.90, Total Counted 100, Neutrophils % (Manual) 56, Band Neutrophils % 3, Lymphocytes % (Manual) 13 L, Monocytes % (Manual) 12 H, Eosinophils % (Manual) 11 H, Metamyelocytes % 1, Myelocytes % 4 H, Diff Path Review May foll, Platelet Estimate MKD DEC, Anisocytosis 1+, Microcytosis 1+, Schistocytes 1+ 11/25/21 08:23: Blood Type O POSITIVE Microbiology: Microbiology 11/21/21 10:03 Nasal Secretion SARS-CoV-2 Antigen (Rapid) - Final D/C Instructions Discharge Diet: No restrictions Call your doctor if you observe: Inability to urinate, Dizziness, Fainting spells and - (worsening blood in urine. blood clots in urine.) Meaningful Use Info Meaningful Use Diagnoses (Choose all that apply): None applicable Discharge Plan Admission Admit Date/Time: 11/19/21 15:05 Primary Reason for Your Visit: hematuria Attending Provider: Rian Chavez Primary Care Provider: Renata Rodriguez Consulting Providers: Jed Ordonez Discharge Orders/Prescriptions Prescriptions: Continued loratadine [Claritin] 10 mg tablet 10 mg PO DAILY RF: 0 ferrous sulfate 325 mg (65 mg iron) tablet 325 mg PO DAILY RF: 0 decitabine [Dacogen] 50 mg recon soln 50 mg subcut QMONTH RF: 0 Discontinued aspirin [Adult Aspirin Regimen] 81 mg tablet,delayed release (DR/EC) 81 mg PO QODAY RF: 0 Referrals / Follow Up: Jed Ordonez MD [STAFF PHYSICIAN] - Within 1 Month Renata Rodriguez MD [Primary Care Provider] - Within 2 Weeks Gary Enriquez DO [STAFF PHYSICIAN] - Within 1 Week Disposition Disposition (needs filled in before D/C Order can be placed): Home, Self Care Charges/Coding Visit Charges Inpatient E&M: 46331 [facility] Hosp
[2021-11-25] MEDS: 0.9% Saline Lock 10 ML Syringe IV (17:46)
[2021-11-26 13:42] LABS: Pathologist Review Reviewed
[2021-11-26 13:43] LABS: Pathologist Review Reviewed
[2021-11-26 14:04] LABS: Pathologist Review Reviewed
== END 2021-11-25 18:01 | disposition home or self-care (01) | DRG 662 ==
LOC: ED 12:49 → PCU 16:05
PROVIDERS: Anesthesiology; Urology; Emergency Provider Emergency Medicine; PCP Internal Medicine
PROC: 0TJB8ZZ Inspection of Bladder, Via Natural or Artificial Opening Endoscopic (ICD-10-PCS; CPT 52000; principal; 2021-11-21 16:50)
DX: N30.41 Irradiation cystitis with hematuria (principal); I21.A1 Myocardial infarction type 2; C95.00 Acute leukemia of unspecified cell type not having achieved remission; N17.9 Acute kidney failure, unspecified; D62 Acute posthemorrhagic anemia; D69.6 Thrombocytopenia, unspecified; D46.9 Myelodysplastic syndrome, unspecified; K21.9 Gastro-esophageal reflux disease without esophagitis; N18.32 Chronic kidney disease, stage 3b; E78.5 Hyperlipidemia, unspecified; R31.0 Gross hematuria; Z20.822 Contact with and (suspected) exposure to COVID-19; Z86.73 Personal history of transient ischemic attack (TIA), and cerebral infarction without residual deficits; Z87.891 Personal history of nicotine dependence; Z79.82 Long term (current) use of aspirin; Z79.899 Other long term (current) drug therapy; Z90.79 Acquired absence of other genital organ(s); Y84.2 Radiological procedure and radiotherapy as the cause of abnormal reaction of the patient, or of later complication, without mention of misadventure at the time of the procedure; Z85.46 Personal history of malignant neoplasm of prostate; Z85.828 Personal history of other malignant neoplasm of skin
CPT/HCPCS: 36415; 36430; 36591; 51702; 74176; 80048; 81001; 84484; 85025; 85610; 85730; 86644; 86850; 86900; 86901; 86920; 86922; 86965; 87426; 93005; 97110; 97116; 97162; 97165; 99282; 99285; J7030; J7040; J7120; P9016; P9035; P9037; A4216; J2405

== ENCOUNTER 2021-11-27 08:30 | Outpatient (CLI) | payer MEDICARE, SELFPAY ==
[2018-07-14 13:00] VITALS: BMI 24.0
[2021-11-27] VITALS (9 sets, daily range): BP systolic 101–135; BP diastolic 40–58; PULSE 88–94; RESP 16; TEMP 36–36.4; O2SAT 97–100
[2021-11-27] MEDS: 0.9% NaCl Peripheral Flush Adult/Peds IV (13:15)
== END 2021-11-27 23:59 | disposition home or self-care (01) ==
PROVIDERS: PCP Internal Medicine; Referring Provider Internal Medicine Hematology & Oncology; Visit Provider Internal Medicine Hematology & Oncology
DX: D46.Z Other myelodysplastic syndromes (principal)
CPT/HCPCS: 36430; 86850; 86900; 86901; 86920; 86922; 86965; J7040; P9016; P9035; A4216

== ENCOUNTER 2021-11-30 09:15 | Outpatient (CLI) | payer MEDICARE, SELFPAY ==
[2018-07-14 13:00] VITALS: BMI 24.0
[2021-11-30 09:27] VITALS: BP 129/53; PULSE 94; RESP 16; TEMP 36.6; O2SAT 97; BMI 22.8
[2021-11-30] MEDS: 0.9% NaCl Peripheral Flush Adult/Peds IV ×2 (09:40→11:30)
[2021-11-30 10:14] VITALS: BP 123/62; PULSE 83; RESP 16; TEMP 36.8; O2SAT 99
[2021-11-30 10:33] VITALS: BP 117/57; PULSE 80; RESP 16; TEMP 36.9; O2SAT 98
[2021-11-30 10:34] VITALS: BP 117/57
[2021-11-30 11:06] VITALS: BP 123/64; PULSE 79; RESP 16; TEMP 36.7
[2021-11-30 11:29] VITALS: BP 127/87; PULSE 84; RESP 16; TEMP 36.8
== END 2021-11-30 23:59 | disposition home or self-care (01) ==
LOC: MEDOUTP 09:16
PROVIDERS: PCP Internal Medicine; Referring Provider Internal Medicine Hematology & Oncology; Visit Provider Internal Medicine Hematology & Oncology
DX: D46.20 Refractory anemia with excess of blasts, unspecified (principal)
CPT/HCPCS: 36430; 86644; 86900; 86901; 86965; J7040; P9035; A4216

== ENCOUNTER 2021-12-11 08:43 | Outpatient (CLI) | payer MEDICARE, SELFPAY ==
[2018-07-14 13:00] VITALS: BMI 24.0
[2021-12-11 08:56] VITALS: BP 116/54; PULSE 98; RESP 18; TEMP 36.3; O2SAT 100
[2021-12-11] MEDS: 0.9% NaCl Peripheral Flush Adult/Peds IV ×2 (09:00→11:53)
[2021-12-11 09:30] VITALS: BP 105/54; PULSE 90; RESP 16; TEMP 36.3
[2021-12-11 10:25] VITALS: BP 116/54; PULSE 88; RESP 16; TEMP 36.6; O2SAT 100
[2021-12-11 11:47] VITALS: BP 116/94; PULSE 99; RESP 18; TEMP 35.9
== END 2021-12-11 23:59 | disposition home or self-care (01) ==
LOC: MEDOUTP 08:44
PROVIDERS: PCP Internal Medicine; Referring Provider Internal Medicine Hematology & Oncology; Visit Provider Internal Medicine Hematology & Oncology
DX: D46.9 Myelodysplastic syndrome, unspecified (principal)
CPT/HCPCS: 36430; 86644; 86850; 86900; 86901; 86920; 86922; 86965; J7040; P9016; P9035; A4216

== ENCOUNTER 2021-12-18 07:58 | Outpatient (CLI) | payer MEDICARE, SELFPAY ==
[2018-07-14 13:00] VITALS: BMI 24.0
[2021-12-18] VITALS (8 sets, daily range): BP systolic 92–122; BP diastolic 43–49; PULSE 91–110; RESP 16–18; TEMP 36.4–36.9; O2SAT 96–100; BMI 22.8
== END 2021-12-18 23:59 | disposition home or self-care (01) ==
LOC: MEDOUTP 07:58
PROVIDERS: PCP Internal Medicine; Referring Provider Internal Medicine Hematology & Oncology; Visit Provider Internal Medicine Hematology & Oncology
DX: D46.9 Myelodysplastic syndrome, unspecified (principal)
CPT/HCPCS: 36430; 86850; 86900; 86901; 86920; 86922; 86965; J7040; P9016; P9035; A4216

== ENCOUNTER 2021-12-19 10:11 | Inpatient (IN) | payer MEDICARE, SELFPAY ==
[2018-07-14 13:00] VITALS: BMI 24.0
[2021-12-19] VITALS (17 sets, daily range): BP systolic 99–113; BP diastolic 50–66; PULSE 94–123; RESP 12–34; TEMP 36.6–37.3; O2SAT 93–100; BMI 23.1; BMI 22.8
--- NOTE | 2021-12-19 10:26 | EKG12_ITS ---
Test Reason : Blood Pressure : / mmHG Vent. Rate : 110 BPM Atrial Rate : 110 BPM P-R Int : 184 ms QRS Dur : 104 ms QT Int : 346 ms P-R-T Axes : 064 -51 084 degrees QTc Int : 468 ms Sinus tachycardia with occasional Premature ventricular complexes Left axis deviation Left ventricular hypertrophy with repolarization abnormality Abnormal ECG Confirmed by BEL ALCANTARA, LENA ([id number]), production editor SHOSHANA MONTE ([id number]) on 12/21/2021 7:19:38 AM Referred By: GRECIA Confirmed By:RAISSA STAPLES MD
--- NOTE | 2021-12-19 10:29 | EX.ED.DYSGE1 ---
HPI History of Present Illness Chief Complaint: Weakness Narrative Narrative: Patient was try to get out of bed in the middle the night he fell but did not injure anything the paramedics came and assisted him up, this morning when he woke up he could not get out of his bed due to to weakness. He tells me his weakness is generalized not just in his legs. He has no fevers or chills. He has no abdominal pain. He has no shortness of breath. He denies a headache. He is on chemotherapy for leukemia, his last chemotherapy was 3 days ago, he has had decreased p.o. intake, as above he is denying any fevers or chills [facility] Medical History (Updated 12/19/21 @ 12:[address] Gary Cornejo MD) Abnormal electrocardiogram Acute leukemia Arthritis Chronic kidney disease, stage 3 CML (chronic myelocytic leukemia) CVA (cerebral vascular accident) DDD (degenerative disc disease) GERD (gastroesophageal reflux disease) H/O seborrheic keratosis Hyperlipidemia Keratoacanthoma Leukocytosis Lymphoma Prostate cancer Skin malignant neoplasm Thyroid nodule Vertigo Home Medications ferrous sulfate 325 mg (65 mg iron) tablet 325 mg PO DAILY 07/31/21 [History Last Taken 11/19/21] loratadine 10 mg tablet 10 mg PO DAILY 07/31/21 [History Last Taken 11/19/21] Allergy/AdvReac Type Severity Reaction Status Date / Time azithromycin AdvReac Mild GI Upset Verified 12/19/21 10:17 [From Zithromax Z-Moises] atorvastatin AdvReac un able to Verified 12/19/21 10:17 focus Sulfa (Sulfonamide AdvReac Unknown Verified 12/19/21 10:17 Antibiotics) Family History Father COPD (chronic obstructive pulmonary disease) Mother Heart disease Alzheimer disease Surgical History History of radical prostatectomy (~1996) Social History Smoking Status: Former smoker quit date: 10/06/79 pack-years: 20 alcohol intake: current alcohol intake frequency: a few times a month substance use type: does not use ROS ROS ED ROS Narrative Past medical history: Reviewed above Medications: Reviewed Social history: Noncontributory Review of systems: All systems negative except as indicated General: No fever. Generalized weakness as in HPI Eyes: No visual changes ENT: No upper airway congestion, normal voice Neck: No neck pain Cardiovascular: No chest pain Respiratory: No shortness of breath or cough Gastrointestinal: No abdominal pain, nausea vomiting or diarrhea Genitourinary: No dysuria Musculoskeletal: Denies myalgias no difficulty with ambulation Skin: No rash Neurological: No memory loss, confusion or any focal weakness Psych: No recent behavioral changes Hematologic: No easy bleeding or easy bruising EXAM Physical Exam Narrative Exam Narrative: Physical exam General: Patient appears chronically ill. He does not appear in any distress Head: Normocephalic, Atraumatic Eyes: Conjunctiva not pale ENT: Somewhat dry mucous membranes Neck: Supple, Nontender, No lymphadenopathy Cardiovascular: Regular tachycardia. No obvious murmur Respiratory: No distress, CTA bilaterally Chest wall: His Mediport site is clean dry and intact. Abdomen: Soft, Nontender, Nondistended Back: Nontender, Normal Inspection. Negative for: CVA tenderness Extremities: Bilateral lower extremity edema without any signs of cellulitis or infection Skin: Normal color, No rash Neurological: Alert, Normal Strength, Normal Sensation Psychological: Normal affect Const Vital Signs: 12/19/21 10:13 12/19/21 10:18 12/19/21 11:22 Temperature 98.0 F 98.0 F 97.8 F Temperature Source Temporal Temporal Temporal Pulse Rate 113 H 105 H Respiratory Rate 18 18 34 H Respiratory Effort Normal Non-Labored Respiratory Pattern Normal Blood Pressure 105/51 L 100/56 L Blood Pressure Mean 69 70 Pulse Ox 99 98 Oxygen Delivery Method Room Air Room Air Room Air MDM MDM MDM Narrative Medical decision making narrative: Patient is found to have thrombocytopenia, as well as anemia. His troponin is elevated, however this is likely an NSTEMI type II I will need his anemia and thrombocytopenia resolved before he can get a, cardiac work-up. I discussed with oncology, Dr. Baum as well as cardiology, Dr. aGtica. Patient will be admitted. Lab Data Labs: Laboratory Results - last 24 hr 12/19/21 12/19/21 12/19/21 10:45 10:45 10:45 WBC 5.3 RBC 2.47 L Hgb 7.3 L Hct 23.1 L MCV 93.5 MCH 29.6 MCHC 31.6 L RDW Std Deviation 71.0 H RDW Coeff of Patsy 21.2 H Plt Count 6 L* Immature Gran % (Auto) 6.600 H Neut % (Auto) 82.2 H Lymph % (Auto) 4.9 L [place] % (Auto) 5.7 Eos % (Auto) 0.6 Baso % (Auto) 0.0 Absolute Neuts (auto) 4.4 Absolute Lymphs (auto) 0.26 L Nucleated RBC % 0 Diff Path Review May foll Platelet Estimate MKD DEC Hypochromasia 1+ Poikilocytosis 2+ Anisocytosis 1+ Ovalocytes 1+ Acanthocytes (Spur) RARE Sodium 139 Potassium 3.7 Chloride 108 H Carbon Dioxide 23.0 Anion Gap 8 BUN 71 H Creatinine 2.33 H Estim Creat Clear Calc 22.02 Est GFR (MDRD) Af Amer 34 L Est GFR (MDRD) Non-Af 28 L BUN/Creatinine Ratio 30.5 H Glucose 112 H Lactic Acid 1.0 Calcium 7.6 L Total Bilirubin 1.20 H AST 18 ALT 13 L Alkaline Phosphatase 42 L Troponin I High Sens 503 H* Total Protein 5.9 L Albumin 2.9 L Globulin 3.0 Albumin/Globulin Ratio 1.0 Urine Color Urine Clarity Urine pH Ur Specific [place] Urine Protein Urine Glucose (UA) Urine Ketones Urine Occult Blood Urine Nitrite Urine Bilirubin Urine Urobilinogen Ur Leukocyte Esterase Urine RBC Urine WBC Ur Squamous Epith Cells Urine Bacteria Urine Mucus 12/19/21 11:30 WBC RBC Hgb Hct MCV MCH MCHC RDW Std Deviation RDW Coeff of Patsy Plt Count Immature Gran % (Auto) Neut % (Auto) Lymph % (Auto) [place] % (Auto) Eos % (Auto) Baso % (Auto) Absolute Neuts (auto) Absolute Lymphs (auto) Nucleated RBC % Diff Path Review Platelet Estimate Hypochromasia Poikilocytosis Anisocytosis Ovalocytes Acanthocytes (Spur) Sodium Potassium Chloride Carbon Dioxide Anion Gap BUN Creatinine Estim Creat Clear Calc Est GFR (MDRD) Af Amer Est GFR (MDRD) Non-Af BUN/Creatinine Ratio Glucose Lactic Acid Calcium Total Bilirubin AST ALT Alkaline Phosphatase Troponin I High Sens Total Protein Albumin Globulin Albumin/Globulin Ratio Urine Color Yellow Urine Clarity Sl. Cloudy Urine pH 6.0 Ur Specific [place] 1.015 Urine Protein 100 H Urine Glucose (UA) Normal Urine Ketones Negative Urine Occult Blood 250 H Urine Nitrite Negative Urine Bilirubin Negative Urine Urobilinogen Normal Ur Leukocyte Esterase 500 H Urine RBC 0 SEEN Urine WBC 5-10 SEEN Ur Squamous Epith Cells 0-5 SEEN Urine Bacteria 0 SEEN Urine Mucus 0 SEEN Radiography Diagnostic Testing: Clinical Impression(s) from Imaging Studies Chest X-Ray 12/19/21 11:12 IMPRESSION: Mildly hyperexpanded lungs with chronic interstitial changes but no superimposed acute pulmonary process Electronically Signed: Rick Leonard MD at 11:25 EDT Reading Location ID and State: [facility] / [place] , Service support , EKG Initial EKG: Comments: Sinus tachycardia with a rate of 110. Occasional PVCs are seen. Somewhat left axis deviation. Nonspecific ST changes throughout. Otherwise normal EKG Interpreted by the ER doctor Critical Care Time Critical Care Time: Yes Critical care time (excluding procedures): 30-74 minutes and - (Critical care time is 35 minutes. I certify that I spent 35 minutes of critical care time with this patient this includes time at the bedside, time documenting time discussing with multiple consultants. This does not include any procedure.) Discharge Plan Triage Chief Complaint: Weakness ED Provider: Gary Cornejo Dx/Rx/DC Orders Clinical Impression: Thrombocytopenia, Acute non-ST elevation myocardial infarction (NSTEMI) Prescriptions: No Action loratadine [Claritin] 10 mg tablet 10 mg PO DAILY RF: 0 ferrous sulfate 325 mg (65 mg iron) tablet 325 mg PO DAILY RF: 0 Primary Care Provider: Renata Rodriguez Referrals: Renata Rodriguez MD [Primary Care Provider] - Disposition Disposition: Acute Care Hospital [facility]
[2021-12-19] MEDS: 0.9% Normal Saline 1,000 ML 1000 ML IV (11:08)
--- NOTE | 2021-12-19 11:12 | RAD_ITS ---
STUDY: X-RAY CHEST REASON FOR EXAM: Male, 86 years old. Weakness TECHNIQUE: Single AP portable view of the chest. COMPARISON: None. FINDINGS: EKG leads overlie the chest. Satisfactory appearance of a right subclavian port. Lungs are mildly hyperexpanded with interstitial changes in the lung bases, no organizing infiltrate or effusion. There is no demonstrated pleural abnormality. Normal size heart. Normal mediastinum and adolfo. Normal visualized pulmonary arteries. There is atherosclerotic calcification of the aortic arch with tortuosity. There are diffuse degenerative changes of the visualized thoracic spine. There is degenerative osteoarthritis of the bilateral shoulders. There is no demonstrated abnormality of the visualized soft tissue structures of the upper abdomen. RAD/Chest 1 View (Portable) IMPRESSION: Mildly hyperexpanded lungs with chronic interstitial changes but no superimposed acute pulmonary process Electronically Signed: Rick Leonard MD at 11:25 EDT ,
[2021-12-19 11:14] LABS: Absolute Lymphocyte Count 0.26 X10^3/uL (0.83-4.51); Absolute Neutrophil Count 4.4 X10^3/uL (2.0-7.7); Eosinophil# 0.03 X10^3/uL; Eosinophils% 0.6 % (0-5); Hematocrit 23.1 % (40-54); Hemoglobin 7.3 g/dL (13.0-16.5); Lymphocyte # 0.26 X10^3/ul (0.83-4.51); Lymphocyte % 4.9 % (19-41); Mean Corp Hgb Conc 31.6 g/dL (32-36); Mean Corpuscular Hgb 29.6 pg (27.0-32.0); Mean Corpuscular Volume 93.5 fL (80-94); Monocyte% 5.7 % (0-10); NRBC Flagged by Analyzer 0 % (0-5); Neutrophil # 4.35 X10^3/uL (2.7-7.7); Neutrophil % 82.2 % (47-70); POSITIVE COUNT YES; POSITIVE DIFFERENTIAL YES; POSITIVE MORPHOLOGY YES; RBC Distribution Width CV 21.2 % (11.6-14.6); Red Blood Count 2.47 M/mm3 (4.6-6.2); White Blood Count 5.3 K/mm3 (4.4-11.0)
[2021-12-19 11:34] LABS: AST(SGOT) 18 U/L (15-37); Alanine Aminotransfer ALT/SGPT 13 U/L (16-61); Albumin, Serum 2.9 g/dL (3.2-5.0); Alkaline Phosphatase 42 U/L (45-117); Anion Gap 8 (5-15); BUN 71 mg/dL (7-18); BUN/Creat Ratio 30.5 RATIO (10-20); Calcium,Total 7.6 mg/dL (8.5-10.1); Chloride 108 mmol/L (98-107); Creatinine, Serum 2.33 mg/dL (0.70-1.30); EST Glomerular Filtration Rate 28 mL/min (>60); Est Glom Filt Rate - Afr Amer 34 mL/min (>60); Estimated Creatinine Clearance 22.02 ml/min; Glucose 112 mg/dL (74-106); Potassium 3.7 mmol/L (3.5-5.1); Protein, Total 5.9 g/dL (6.4-8.2); Sodium Level 139 mmol/L (136-145); Troponin-I HS 503 pg/mL (3.0-78.0)
[2021-12-19 11:35] LABS: Differential Indicated SCAN CRITERIA MET; Platelet Count 6 K/mm3 (150-450); Platelet Estimate MKD DEC (ADEQ)
[2021-12-19 11:36] LABS: Anisocytosis 1+; Hypochromasia 1+; Poikilocytosis 2+
[2021-12-19 11:37] LABS: Acanthocytes RARE; Ovalocyte 1+
[2021-12-19 11:40] LABS: Bacteria 0 SEEN /hpf (None Seen); Mucous, Urine 0 SEEN /hpf (<or=2+); Red Blood Cells-Urine 0 SEEN /hpf (0-5)
[2021-12-19 11:43] LABS: Color, Urine Yellow (Yellow); Glucose, Dipstick Normal (Normal); Ketone-Dipstick Negative (Negative); Leukocyte Esterase-Dipstick 500 /ul (Negative); Nitrite-Dipstick Negative (Negative); Occult Blood-Urine 250 /ul (Negative); Protein-Dipstick 100 mg/dl (Negative); Specific Gravity, Urine 1.015 (1.002-1.030); Urine Bilirubin Dipstick Negative (Negative); Urine Clarity Sl. Cloudy (Clear); Urine Urobilinogen Normal (Normal)
[2021-12-19 11:52] LABS: Squamous Epithelial Cells - UA 0-5 SEEN /hpf (0-5); White Blood Cells 5-10 SEEN /hpf (0-5)
--- NOTE | 2021-12-19 12:41 | ED.RN ---
plt low due to chemo, not considered sepsis risk
--- NOTE | 2021-12-19 12:47 | HP.PCM.HOS_ITS ---
HPI - General General Date of Admission: 12/19/21 Date of Service: 12/19/21 Chief Complaint: weakness HPI Narrative JOCELYNE SINGLETON, is a 86 M who presents to the emergency room with weakness. Patient was found to have hemoglobin 7.3, platelets of 6000 and creatinine 2.3. Patient had just received platelets and red blood cells yesterday. Patient not a candidate for cardiac intervention given his profound thrombocytopenia. Patient is on chemotherapy for acute leukemia and he just received his last round of chemotherapy about 3 days ago. Patient was admitted last month with hematuria due to thrombocytopenia and radiation cystitis and did require platelet transfusions as well as 3 units of peripheral blood cells. Patient denies any hematuria. He states he is having some diarrhea but denies any occasion nor melena. [facility] Medical History (Updated 12/19/21 @ 12:[address] Rian Chavez DO) Abnormal electrocardiogram Acute leukemia Arthritis Chronic kidney disease, stage 3 CML (chronic myelocytic leukemia) CVA (cerebral vascular accident) DDD (degenerative disc disease) GERD (gastroesophageal reflux disease) H/O seborrheic keratosis Hyperlipidemia Keratoacanthoma Leukocytosis Lymphoma Prostate cancer Skin malignant neoplasm Thyroid nodule Vertigo Home Medications ferrous sulfate 325 mg (65 mg iron) tablet 325 mg PO DAILY 07/31/21 [History Last Taken 11/19/21] loratadine 10 mg tablet 10 mg PO DAILY 07/31/21 [History Last Taken 11/19/21] Allergy/AdvReac Type Severity Reaction Status Date / Time azithromycin AdvReac Mild GI Upset Verified 12/19/21 10:17 [From Zithromax Z-Moises] atorvastatin AdvReac un able to Verified 12/19/21 10:17 focus Sulfa (Sulfonamide AdvReac Unknown Verified 12/19/21 10:17 Antibiotics) Family History (Updated 12/19/21 @ 12:[address] Rian Chavez DO) Father COPD (chronic obstructive pulmonary disease) Mother Heart disease Alzheimer disease Surgical History History of radical prostatectomy (~1996) Social History Smoking Status: Former smoker quit date: 10/06/79 pack-years: 20 alcohol intake: current alcohol intake frequency: a few times a month substance use type: does not use ROS ROS Narrative Weakness, chronic shortness of breath. Denies chest pain. Bruising. All review of systems were negative except as mentioned above in the history of present illness and the other review of systems. Vital Signs Vital Signs Vital Signs: 12/19/21 10:13 12/19/21 10:18 12/19/21 11:22 Temperature 36.7 C 36.7 C 36.6 C Temperature Source Temporal Temporal Temporal Pulse Rate 113 H 105 H Respiratory Rate 18 18 34 H Respiratory Effort Normal Non-Labored Respiratory Pattern Normal Blood Pressure 105/51 L 100/56 L Blood Pressure Mean 69 70 Pulse Ox 99 98 Oxygen Delivery Method Room Air Room Air Room Air 12/19/21 12:00 12/19/21 12:36 Temperature 36.6 C 36.6 C Temperature Source Oral Temporal Pulse Rate 101 H 101 H Respiratory Rate 29 H 24 H Respiratory Effort Respiratory Pattern Blood Pressure 100/66 100/66 Blood Pressure Mean 77 77 Pulse Ox 100 99 Oxygen Delivery Method Room Air Room Air Weight Weight: 69.1 kg Body Mass Index (BMI) 23.1 Physical Exam Const alert Constitutional Narrative: Hard of hearing General Appearance: cooperative HEENT normocephalic and head/scalp atraumatic Eyes Eyes Narrative: No icterus Neck no lymphadenopathy Neck Narrative: No thyromegaly Resp normal respiratory effort, no retractions, no use of accessory muscles and clear to auscultation bilaterally Cardio regular rate, regular rhythm, S1 normal heart sound and S2 normal heart sound GI normal to inspection, nondistended, normoactive bowel sounds, soft to palpation, non-tender and non-distended Extremity normal to inspection and full ROM Skin no rashes or lesions noted Neuro Sensorium / Orientation: awake and alert Results Lab / Micro Data Result Diagrams: 12/19/21 10:45 12/19/21 10:45 Labs: Laboratory Results - last 24 hr 12/19/21 10:45: WBC 5.3, RBC 2.47 L, Hgb 7.3 L, Hct 23.1 L, MCV 93.5, MCH 29.6, MCHC 31.6 L, RDW Std Deviation 71.0 H, RDW Coeff of Patsy 21.2 H, Plt Count 6 L*, Immature Gran % (Auto) 6.600 H, Neut % (Auto) 82.2 H, Lymph % (Auto) 4.9 L, [place] % (Auto) 5.7, Eos % (Auto) 0.6, Baso % (Auto) 0.0, Absolute Neuts (auto) 4.4, Absolute Lymphs (auto) 0.26 L, Nucleated RBC % 0, Diff Path Review May Zane spaulding telet Estimate MKD DEC, Hypochromasia 1+, Poikilocytosis 2+, Anisocytosis 1+, Ovalocytes 1+, Acanthocytes (Spur) RARE 12/19/21 10:45: Sodium 139, Potassium 3.7, Chloride 108 H, Carbon Dioxide 23.0, Anion Gap 8, BUN 71 H, Creatinine 2.33 H, Estim Creat Clear Calc 22.02, Est GFR (MDRD) Af Amer 34 L, Est GFR (MDRD) Non-Af 28 L, BUN/Creatinine Ratio 30.5 H, Glucose 112 H, Calcium 7.6 L, Total Bilirubin 1.20 H, AST 18, ALT 13 L, Alkaline Phosphatase 42 L, Troponin I High Sens 503 H*, Total Protein 5.9 L, Albumin 2.9 L, Globulin 3.0, Albumin/Globulin Ratio 1.0 12/19/21 10:45: Lactic Acid 1.0 12/19/21 11:30: Urine Color Yellow, Urine Clarity Sl. Cloudy, Urine pH 6.0, Ur Specific [place] 1.015, Urine Protein 100 H, Urine Glucose (UA) Normal, Urine Ketones Negative, Urine Occult Blood 250 H, Urine Nitrite Negative, Urine Bilirubin Negative, Urine Urobilinogen Normal, Ur Leukocyte Esterase 500 H, Urine RBC 0 SEEN, Urine WBC 5-10 SEEN, Ur Squamous Epith Cells 0-5 SEEN, Urine Bacteria 0 SEEN, Urine Mucus 0 SEEN EKG Initial EKG: Attestation: I personally reviewed and interpreted this EKG as follows: Prior EKG tracings: available for review EKG Rhythm Intrepretation: Sinus Rhythm (PVCs) Radiology Impression Chest X-Ray 12/19/21 11:12 IMPRESSION: Mildly hyperexpanded lungs with chronic interstitial changes but no superimposed acute pulmonary process Electronically Signed: Rick Leonard MD at 11:25 EDT Reading Location ID and State: [facility] / [place] , Service support , Assessment & Plan Assessment/Plan (1) Acute non-ST elevation myocardial infarction (NSTEMI): (2) Thrombocytopenia: (3) NIMCO (acute kidney injury): (4) Anemia: QUALIFIERS: Anemia type: unspecified type Qualified Code(s): D64.9 - Anemia, unspecified PLAN: 1. Severe thrombocytopenia Likely due to chemotherapy which she just received 3 days ago Patient has been ordered 2 units of platelets from the emergency room. Patient advised that it may take several hours to be able to receive the platelets. Monitor 2. Anemia May be due to chemotherapy as well. Hemoglobin 7.3 and will hold off any transfusion at this point in time unless hemoglobin drops to 7 or less 3. Non-STEMI May be type II event Not a candidate for coronary intervention Check 2D echocardiogram 4. Acute kidney injury Creatinine 2.3, baseline around 1.6 IV fluids Monitor 5. Leukemia Last received chemotherapy 3 days prior to arrival which will be on hold Follow-up with Dr. Enriquez as outpatient 6. VTE prophylaxis: Contraindicated given the patient's thrombocytopenia 7. CODE STATUS: Addressed with patient. Patient was to be DNR Comfort Care arrest no intubation. Discussed with the patient's at bedside. Charges/Coding Visit Charges Inpatient E&M: 48395 Init Hosp L3
--- NOTE | 2021-12-19 13:05 | CASEMGMT ---
Readmission chart review: 11/19/21 - 11/25/21: hematuria 12/19/21 - current: thrombocytopenia, NSTEMI Patient with hx acute leukemia, follows with Dr. Enriquez and currently receiving chemotherapy treatment (last treatment 3 days ago). Patient was evaluated at [facility] ER on 11/16 for thrombocytopenia (plt count 18). Patient received platelets in the ED and discharged home. Patient returned to [facility] ER on 11/19 for hematuria. Patient was admitted for hematuria complicated by thrombocytopenia (plt count 13) for platelet transfusion, CBI and consult. Patient discharged on 11/25 with instruction to follow up with Dr. Ordonez, Dr. Enriquez and Dr. Rodriguez. Platelet count 25 on day of hospital discharge. Patient returned to [facility] ER on 12/19 for c/o generalized weakness and unable to get out of bed on this date. Patient reported previous fall while trying to get out of bed during the night and EMS was called to home for lift assist, patient denied injury. Plt count 6, H&H 7.31 and 23.1, Troponin 503. Patient readmitted to [facility] for thrombocytopenia and NSTEMI. ANUPAM SMITH to follow for any discharge planning/needs. ANUPAM Pandey CM
--- NOTE | 2021-12-19 13:27 | EKG12_ITS ---
Test Reason : WEAKNESS Blood Pressure : / mmHG Vent. Rate : 097 BPM Atrial Rate : 097 BPM P-R Int : 192 ms QRS Dur : 114 ms QT Int : 380 ms P-R-T Axes : 071 -51 083 degrees QTc Int : 482 ms Normal sinus rhythm Left anterior fascicular block Left ventricular hypertrophy Prolonged QT Abnormal ECG When compared with ECG of 19-DEC-2021 10:35, MANUAL COMPARISON REQUIRED, DATA IS UNCONFIRMED Confirmed by BEL ALCANTARA, LENA ([id number]), visual effects editor LADAN WELLS ([id number]) on 12/20/2021 1:39:50 PM Referred By: LORAINE Confirmed By:RAISSA STAPLES MD
--- NOTE | 2021-12-19 13:27 | ECHOD_ITS ---
Reason For Study: ELEVATED TROPONINS Procedure This was a 2D Doppler, Color Flow transthoracic echocardiogram. Myocardial strain analysis was performed in this exam to aid in the assessment of cardiac function. Exam performed portable in patient room. Left Ventricle Normal LV size. Left ventricular systolic function is normal. The estimated ejection fraction is 60 %. Stage 1 diastolic dysfunction. No regional wall motion abnormalities noted. Right Ventricle Normal RV size. The right ventricular apex is not well visualized. Normal systolic function. Atria Normal left atrium. Normal right atrium. Mitral Valve Normal mitral valve. Mild (1+) eccentric mitral valve insufficiency. Tricuspid Valve Normal tricuspid valve. Mild (1+) tricuspid valve insufficiency. Pulmonary artery systolic pressure is 51 mmHg. Aortic Valve Trisinus/trileaflet aortic valve. Mild focal aortic valve calcification. Mild (1+) aortic valve insufficiency. Pulmonic Valve Normal pulmonic valve. Great Vessels Normal aortic root. The pulmonary artery is normal size. The inferior vena cava is dilated. Pericardium/Pleural Small pericardial effusion. MMode/2D Measurements & Calculations LVIDd: 3.5 cm IVSd: 0.73 cm Ao root diam: 3.3 cm LVIDs: 2.4 cm LVPWd: 0.81 cm RVDd: 4.0 cm FS: 32.0 % LAV(MOD-bp): 56.5 ml LVAd ap4: 29.7 cm2 SV(MOD-sp4): 57.8 ml LAV(MOD-bp) Indexed: 31.1 ml/m2 LVLd ap4: 7.8 cm LAV(MOD-sp2): 55.8 ml EDV(MOD-sp4): 93.2 ml LAV(MOD-sp4): 53.5 ml EDV(sp4-el): 96.6 ml LVAs ap4: 16.6 cm2 LVLs ap4: 6.8 cm ESV(MOD-sp4): 35.4 ml ESV(sp4-el): 34.4 ml EF(MOD-sp4): 62.0 % EF(sp4-el): 64.4 % SV(sp4-el): 62.2 ml LA A4 area: 19.5 cm2 LA dimension(2D): 3.2 cm RA A4 area: 20.7 cm2 Time Measurements MV dec time: 0.22 sec Doppler Measurements & Calculations MV E max [place]: 109.0 cm/sec Lat Peak E' [place]: 11.4 cm/sec Med Peak E' [place]: 8.7 cm/sec MV A max [place]: 157.6 cm/sec E/E' lat: 9.5 E/E' med: 12.5 MV E/A: 0.69 Ao V2 max: 169.6 cm/sec AI max [place]: 398.3 cm/sec LV V1 max: 115.0 cm/sec Ao max P.5 mmHg AI max P.5 mmHg LV V1 max P.3 mmHg AI dec slope: 297.6 cm/sec2 AI P1/2t: 391.9 msec PA V2 max: 86.5 cm/sec TR max [place]: 342.5 cm/sec TR max P.9 mmHg ECHO/Echo Complete Interpretation Summary Normal LV size. Left ventricular systolic function is normal. The estimated ejection fraction is 60 %. Stage 1 diastolic dysfunction. The inferior vena cava is dilated Pulmonary artery systolic pressure is 51 mmHg. Small pericardial effusion. The global longitudinal strain is normal. The global longitudinal strain = -18. 3 % (normal). Ordering Physician: Rian Chavez Referring Physician: TRINA QUIÑONES Performed By: Shanique Mg RDCS
[2021-12-19] MEDS: 0.9% Normal Saline 1,000 ML 150 ML IV (13:56)
[2021-12-19 16:09] LABS: Troponin-I HS 555 pg/mL (3.0-78.0)
[2021-12-19 17:36] LABS: Troponin-I HS 550 pg/mL (3.0-78.0)
[2021-12-20] VITALS (14 sets, daily range): BP systolic 101–123; BP diastolic 57–64; PULSE 94–107; RESP 12–18; TEMP 36.6–37.3; O2SAT 95–100
[2021-12-20 05:58] LABS: Hematocrit 21.7 % (40-54); Hemoglobin 7.1 g/dL (13.0-16.5); Mean Corp Hgb Conc 32.7 g/dL (32-36); Mean Corpuscular Volume 91.6 fL (80-94); Mean Platelet Vol. 11.9 fl (6.2-12.0); POSITIVE COUNT YES; POSITIVE DIFFERENTIAL YES; POSITIVE MORPHOLOGY YES; RBC Distribution Width CV 21.2 % (11.6-14.6); RBC Distribution Width SD 69.6 fl (35.1-43.9); Red Blood Count 2.37 M/mm3 (4.6-6.2); White Blood Count 3.6 K/mm3 (4.4-11.0)
[2021-12-20 06:02] LABS: Differential Indicated MANUAL DIFF
[2021-12-20 06:03] LABS: Platelet Count 26 K/mm3 (150-450)
[2021-12-20 06:21] LABS: Anion Gap 6 (5-15); BUN 60 mg/dL (7-18); BUN/Creat Ratio 28.3 RATIO (10-20); Calcium,Total 7.3 mg/dL (8.5-10.1); Chloride 111 mmol/L (98-107); Creatinine, Serum 2.12 mg/dL (0.70-1.30); EST Glomerular Filtration Rate 32 mL/min (>60); Eosinophil 6 % (0-5); Est Glom Filt Rate - Afr Amer 38 mL/min (>60); Estimated Creatinine Clearance 24.06 ml/min; Glucose 105 mg/dL (74-106); Lymphocyte 9 % (19-41); Metamyelocyte 1 % (0-1); Monocyte 4 % (0-10); Neutrophil-Band 10 % (0-5); Neutrophil-Segmented 70 % (47-70); Nucleated Red Bld Cells,Manual 1 % (0-5); Platelet Estimate MKD DEC (ADEQ); Potassium 3.6 mmol/L (3.5-5.1); Sodium Level 140 mmol/L (136-145); Total Cells Counted 100 (MANUAL DIFF)
[2021-12-20 06:22] LABS: Anisocytosis 1+; Microcytosis 1+
[2021-12-20 06:23] LABS: Absolute Lymphocyte Count 0.32 X10^3/uL (0.83-4.51); Absolute Neutrophil Count 2.9 X10^3/uL (2.0-7.7); Hypochromasia 2+; Lymphocyte # 0.32 X10^3/ul (0.83-4.51); Neutrophil # 2.88 X10^3/uL (2.7-7.7)
[2021-12-20] MEDS: Loratadine 10 MG Tablet PO (08:39)
[2021-12-20] MEDS: Ferrous Sulfate 325 MG Tablet PO (08:39)
--- NOTE | 2021-12-20 10:57 | CASEMGMT ---
During rounds with physician this am SW was informed patient will need fci placement. SW met with patient and his , Katherin. Introduced self and role at [facility]. SW asked about their plans for discharge and Katherin said patient will have to go somewhere for rehab. SW provided a list of SNF providers including quality and resource use data and consistent with the patient?s preferred geographic region, medical needs, and insurance network. SW explained that the facilities highlighted in pink are the ones that take patient's insurance. SW only needs them to pick 3 choices and SW will take care of finding out who has availability. Katherin asked if patient was being discharged and SW told her now. However, planning for a fci starts right away due to all that is involved. SW told them SW will check back. Plan: SNF pending facility choices and acceptance and insurance approval. Racheal CASTRO
[2021-12-20 14:24] LABS: Pathologist Review Reviewed
--- NOTE | 2021-12-20 14:35 | PN.HOSP_ITS ---
Subjective Subjective No new events. Objective Data Objective Data Vital Signs: Vital Signs Temp Pulse Resp BP Pulse Ox 36.6 C 96 16 107/60 98 12/20/21 13:38 12/20/21 13:38 12/20/21 13:38 12/20/21 13:38 12/20/21 13:38 Oxygen Delivery Method Room Air Weight: 68 kg Body Mass Index (BMI) 22.8 Intake & Output: Intake and Output for Last 24 Hours 12/18/21 12/19/21 12/20/21 23:59 23:59 23:59 Intake Total 2560 / 2680 800 / 800 Output Total 700 / 700 Balance 2560 / 2580 100 / 100 Lab / Micro Data Result Diagrams: 12/20/21 05:37 12/20/21 05:37 Labs: Laboratory Results - last 24 hr 12/19/21 10:45: Diff Path Review Reviewed 12/19/21 15:35: Troponin I High Sens 555 H* 12/19/21 16:40: Troponin I High Sens 550 H* 12/20/21 05:37: WBC 3.6 L, RBC 2.37 L, Hgb 7.1 L, Hct 21.7 L, MCV 91.6, MCH 30.0, MCHC 32.7, RDW Std Deviation 69.6 H, RDW Coeff of Patsy 21.2 H, Plt Count 26 L*, MPV 11.9, Neut % (Auto) Not Reportable, Absolute Neuts (auto) 2.9, Absolute Lymphs (auto) 0.32 L, Total Counted 100, Neutrophils % (Manual) 70, Band N eutrophils % 10 H, Lymphocytes % (Manual) 9 L, Monocytes % (Manual) 4, Eosinophils % (Manual) 6 H, Metamyelocytes % 1, Nucleated RBCs/100 WBC 1, Diff Path Review May foll, Platelet Estimate MKD DEC, Hypochromasia 2+, Anisocytosis 1+, Microcytosis 1+ 12/20/21 05:37: Sodium 140, Potassium 3.6, Chloride 111 H, Carbon Dioxide 23.0, Anion Gap 6, BUN 60 H, Creatinine 2.12 H, Estim Creat Clear Calc 24.06, Est GFR (MDRD) Af Amer 38 L, Est GFR (MDRD) Non-Af 32 L, BUN/Creatinine Ratio 28.3 H, Glucose 105, Calcium 7.3 L Radiography Diagnostic Testing: Radiology Impression Echocardiogram 12/19/21 13:27 Interpretation Summary Normal LV size. Left ventricular systolic function is normal. The estimated ejection fraction is 60 %. Stage 1 diastolic dysfunction. The inferior vena cava is dilated Pulmonary artery systolic pressure is 51 mmHg. Small pericardial effusion. The global longitudinal strain is normal. The global longitudinal strain = -18.3 % (normal). Ordering Physician: Rian Chavez Referring Physician: TRINA QUIÑONES Performed By: Shanique Mg RDCS Physical Exam Const alert and no apparent distress Resp normal respiratory effort, no retractions, no use of accessory muscles and clear to auscultation bilaterally Cardio regular rate, regular rhythm, S1 normal heart sound and S2 normal heart sound GI normal to inspection, nondistended, normoactive bowel sounds, soft to palpation, non-tender and non-distended Extremity General Extremity: edema Assessment & Plan Assessment/Plan (1) Acute non-ST elevation myocardial infarction (NSTEMI): (2) Thrombocytopenia: (3) NIMCO (acute kidney injury): (4) Anemia: QUALIFIERS: Anemia type: unspecified type Qualified Code(s): D64.9 - Anemia, unspecified PLAN: 1. Severe thrombocytopenia improved after 2 packs of platelets. Likely due to chemotherapy which she just received 3 days ago Patient has been ordered 2 units of platelets from the emergency room. Patient advised that it may take several hours to be able to receive the platelets. 2. Anemia May be due to chemotherapy as well. Hg 7.1. Given NSTEMI, will transfuse 1 unit for goal Hg around 8 3. Non-STEMI May be type II event Echo unremarkable 4. Acute kidney injury Creatinine 2.3, baseline around 1.6 improving 5. Leukemia Last received chemotherapy 3 days prior to arrival which will be on hold Follow-up with Dr. Enriquez as outpatient 6. VTE prophylaxis: Contraindicated given the patient's thrombocytopenia 7. CODE STATUS: Addressed with patient. Patient was to be DNR Comfort Care arrest no intubation. 8. Debility: to SNF pending medical stabilization. Discussed with the patient's and son at bedside. Charges/Coding Visit Charges Inpatient E&M: 41243 Subs Hosp L2
--- NOTE | 2021-12-20 16:10 | CASEMGMT ---
Discharge Jewel Cupping Machine Operator Called Regina at [facility]. Left a VM. Sent over the referral. Will follow up. Candie Raymundo Discharge Jewel Cupping Machine Operator
[2021-12-21] VITALS (8 sets, daily range): BP systolic 110–121; BP diastolic 59–61; PULSE 92–103; RESP 18; TEMP 36.9–37.1; O2SAT 98–100
[2021-12-21 07:49] LABS: Absolute Lymphocyte Count 0.25 X10^3/uL (0.83-4.51); Absolute Neutrophil Count 1.7 X10^3/uL (2.0-7.7); Eosinophil# 0.11 X10^3/uL; Hematocrit 24.9 % (40-54); Lymphocyte # 0.25 X10^3/ul (0.83-4.51); Mean Corp Hgb Conc 32.1 g/dL (32-36); Mean Corpuscular Hgb 29.9 pg (27.0-32.0); Mean Corpuscular Volume 92.9 fL (80-94); NRBC Flagged by Analyzer 0 % (0-5); Neutrophil # 1.69 X10^3/uL (2.7-7.7); POSITIVE COUNT YES; POSITIVE DIFFERENTIAL YES; POSITIVE MORPHOLOGY YES; Platelet Count 9 K/mm3 (150-450); RBC Distribution Width CV 20.1 % (11.6-14.6); RBC Distribution Width SD 67.5 fl (35.1-43.9); Red Blood Count 2.68 M/mm3 (4.6-6.2); White Blood Count 2.4 K/mm3 (4.4-11.0)
[2021-12-21 08:00] LABS: Differential Indicated SCAN CRITERIA MET
[2021-12-21 08:12] LABS: Anion Gap 7 (5-15); BUN 56 mg/dL (7-18); BUN/Creat Ratio 27.1 RATIO (10-20); Calcium,Total 7.7 mg/dL (8.5-10.1); Chloride 112 mmol/L (98-107); Creatinine, Serum 2.07 mg/dL (0.70-1.30); EST Glomerular Filtration Rate 33 mL/min (>60); Est Glom Filt Rate - Afr Amer 39 mL/min (>60); Estimated Creatinine Clearance 24.64 ml/min; Glucose 103 mg/dL (74-106); Potassium 3.7 mmol/L (3.5-5.1); Sodium Level 141 mmol/L (136-145)
[2021-12-21 08:16] LABS: Crenated RBC 1+; Platelet Estimate MKD DEC (ADEQ)
[2021-12-21 08:23] LABS: Eosinophil 9 % (0-5); Hypochromasia 1+; Lymphocyte 17 % (19-41); Monocyte 3 % (0-10); Neutrophil-Band 6 % (0-5); Neutrophil-Segmented 65 % (47-70); Scan Smear per Review Criteria MANUAL DIFF; Total Cells Counted 100 (MANUAL DIFF)
[2021-12-21] MEDS: Loratadine 10 MG Tablet PO (08:28)
[2021-12-21] MEDS: Ferrous Sulfate 325 MG Tablet PO (08:28)
--- NOTE | 2021-12-21 09:52 | CASEMGMT ---
CHRISTIAN spoke with Merly in TCU and they will have a bed for patient. Merly started the process to obtain insurance approval. CHRISTIAN spoke with patient, his , and daughter. SW let them know TCU will have a bed for patient. CHRISTIAN let them know patient will stay here until insurance approves. CHRISTIAN explained this could be this weekend and if not it would be Friday/Friday. They thanked CHRISTIAN for the information. Plan: [facility] TCU pending insurance approval. Racheal CASTRO
[2021-12-21 13:03] LABS: Pathologist Review Reviewed
--- NOTE | 2021-12-21 14:01 | PCM.PN.HOSP ---
Subjective Subjective No new events. Patient mention something about quality of life versus quantity. His seconds that notion. Objective Data Objective Data Vital Signs: Vital Signs Temp Pulse Resp BP Pulse Ox 36.9 C 95 18 120/59 L 98 12/21/21 08:27 12/21/21 08:27 12/21/21 08:27 12/21/21 08:27 12/21/21 08:27 Oxygen Delivery Method Room Air Weight: 68 kg Body Mass Index (BMI) 22.8 Intake & Output: Intake and Output for Last 24 Hours 12/19/21 12/20/21 12/21/21 23:59 23:59 23:59 Intake Total 2560 / 2680 1830 / 1830 250 / 250 Output Total 1600 / 1600 450 / 450 Balance 2560 / 2580 230 / 230 -200 / -200 Lab / Micro Data Result Diagrams: 12/21/21 07:30 12/21/21 07:30 Labs: Laboratory Results - last 24 hr 12/19/21 10:45: Diff Path Review Reviewed 12/20/21 05:37: Diff Path Review Reviewed 12/20/21 15:32: Blood Type O POSITIVE, Antibody Screen NEGATIVE, Crossmatch See Detail 12/21/21 06:24: WBC Cancelled, Corrected WBC Cancelled, RBC Cancelled, Hgb Cancelled, Hct Cancelled, MCV Cancelled, MCH Cancelled, MCHC Cancelled, RDW Std Deviation Cancelled, RDW Coeff of Patsy Cancelled, Plt Count Cancelled, MPV Cancelled, Immature Gran % (Auto) Cancelled, Neut % (Auto) Cancelled, Lymph % (Auto) Cancelled, [place] % (Auto) Cancelled, Eos % (Auto) Cancelled, Baso % (Auto) Cancelled, Absolute Neuts (auto) Cancelled, Absolute Lymphs (auto) Cancelled, Total Counted Cancelled, Neutrophils % (Manual) Cancelled, Band Neutrophils % Cancelled, Lymphocytes % (Manual) Cancelled, Monocytes % (Manual) Cancelled, Eosinophils % (Manual) Cancelled, Basophils % (Manual) Cancelled, Metamyelocytes % Cancelled, Myelocytes % Cancelled, Promyelocytes % Cancelled, Blast Cells % Cancelled, Plasma Cell % (Manual) Cancelled, Other Cells % Cancelled, Nucleated RBC % Cancelled, Nucleated RBCs/100 WBC Cancelled, Differential Comment Cancelled, Diff Path Review Cancelled, Hypersegmented Neuts Cancelled, Atypical Lymphocytes Cancelled, Reactive Lymphocytes Cancelled, Smudge Cells Cancelled, Toxic Granulation Cancelled, Toxic Vacuolation Cancelled, Dohle Bodies Cancelled, Antonio Rods Cancelled, Platelet Estimate Cancelled, Plt Morphology Comment Cancelled, RBC Morphology Cancelled, Polychromasia Cancelled, Hypochromasia Cancelled, Poikilocytosis Cancelled, Basophilic Stippling Cancelled, Anisocytosis Cancelled, Microcytosis Cancelled, Macrocytosis Cancelled, Spherocytes Cancelled, Sickle Cells Cancelled, Target Cells Cancelled, Tear Drop Cells Cancelled, Ovalocytes Cancelled, Stomatocytes Cancelled, Li-Grantley Bodies Cancelled, Rashaad Cells Cancelled, Bite Cells Cancelled, Crenated Cell Cancelled, Acanthocytes (Spur) Cancelled, Rouleaux Cancelled, Schistocytes Cancelled 12/21/21 06:24: Sodium Cancelled, Potassium Cancelled, Chloride Cancelled, Carbon Dioxide Cancelled, Anion Gap Cancelled, BUN Cancelled, Creatinine Cancelled, Estim Creat Clear Calc Cancelled, Est GFR (MDRD) Af Amer Cancelled, Est GFR (MDRD) Non-Af Cancelled, BUN/Creatinine Ratio Cancelled, Glucose Cancelled, Calcium Cancelled 12/21/21 07:30: WBC 2.4 L, RBC 2.68 L, Hgb 8.0 L, Hct 24.9 L, MCV 92.9, MCH 29.9, MCHC 32.1, RDW Std Deviation 67.5 H, RDW Coeff of Patsy 20.1 H, Plt Count 9 L*, Immature Gran % (Auto) SHELTER DIRECTOR, Neut % (Auto) SHELTER DIRECTOR, Lymph % (Auto) SHELTER DIRECTOR, [place] % (Auto) SHELTER DIRECTOR, Eos % (Auto) SHELTER DIRECTOR, Baso % (Auto) SHELTER DIRECTOR, Absolute Neuts (auto) 1.7 L, Absolute Lymphs (auto) 0.25 L, Total Counted 100, Neutrophils % (Manual) 65, Band Neutrophils % 6 H, Lymphocytes % (Manual) 17 L, Monocytes % (Manual) 3, Eosinophils % (Manual) 9 H, Nucleated RBC % 0, Diff Path Review May foll, Platelet Estimate MKD DEC, Hypochromasia 1+, Crenated Cell 1+ 12/21/21 07:30: Sodium 141, Potassium 3.7, Chloride 112 H, Carbon Dioxide 22.0, Anion Gap 7, BUN 56 H, Creatinine 2.07 H, Estim Creat Clear Calc 24.64, Est GFR (MDRD) Af Amer 39 L, Est GFR (MDRD) Non-Af 33 L, BUN/Creatinine Ratio 27.1 H, Glucose 103, Calcium 7.7 L Micro: Microbiology 12/19/21 11:30 Blood Culture (Wb) - Anticubital Left Blood Culture - Preliminary No growth in 48 hours. 12/19/21 10:45 Blood Culture (Wb) - Port Blood Culture - Preliminary No growth in 48 hours. Physical Exam Const alert and no apparent distress Resp normal respiratory effort, no retractions, no use of accessory muscles and clear to auscultation bilaterally Cardio regular rate, regular rhythm, S1 normal heart sound and S2 normal heart sound GI normal to inspection, nondistended, normoactive bowel sounds, soft to palpation, non-tender and non-distended Extremity normal to inspection Assessment & Plan Assessment/Plan (1) Acute non-ST elevation myocardial infarction (NSTEMI): (2) Thrombocytopenia: (3) NIMCO (acute kidney injury): (4) Anemia: QUALIFIERS: Anemia type: unspecified type Qualified Code(s): D64.9 - Anemia, unspecified PLAN: 1. Severe thrombocytopenia Down again. Transfuse an additional 2 units for total of 4 units total. Improved after 2 packs of platelets. Likely due to chemotherapy which she just received 3 days prior to admission 2. Anemia Improved after transfusion of packed red blood cells on the . May be due to chemotherapy as well. Hg 7.1. Given NSTEMI, will transfuse 1 unit for goal Hg around 8 3. Non-STEMI May be type II event Echo unremarkable Goal hemoglobin around 8 Not a candidate for further cardiac intervention 4. Acute kidney injury Creatinine 2.3, baseline around 1.6 improving 5. Leukemia Last received chemotherapy 3 days prior to arrival which will be on hold Follow-up with Dr. Enriquez as outpatient 6. VTE prophylaxis: Contraindicated given the patient's thrombocytopenia 7. CODE STATUS: Addressed with patient. Patient was to be DNR Comfort Care arrest no intubation. 8. Debility: to SNF pending medical stabilization. Discussed with the patient's . Patient brought up on his own about quality of life. Explained to him that palliative care would be an appropriate option for him to help with any kind of somatic symptomatic issues that he may be experiencing. Also explained that that could transition over to hospice which he is certainly not a candidate at this time. He and his are both agreeable to meeting with hospice and both understand that is just another option to help with his overall medical care and does not obligate him. Charges/Coding Visit Charges Inpatient E&M: 67754 Subs Hosp L2
--- NOTE | 2021-12-21 14:20 | CASEMGMT ---
Dr. Chavez spoke with pt/ and they are agreeable to palliative referral for pt at this time. Order placed by Dr. Chavez and referral e-mailed to [facility] palliative. Nima BO CM
[2021-12-21] MEDS: Tamsulosin HCl 0.4 MG Capsule PO (21:22)
[2021-12-22] VITALS (16 sets, daily range): BP systolic 101–123; BP diastolic 51–67; PULSE 89–102; RESP 16–20; TEMP 36.6–37.8; O2SAT 95–100
[2021-12-22 05:50] LABS: Absolute Lymphocyte Count 0.23 X10^3/uL (0.83-4.51); Absolute Neutrophil Count 1.3 X10^3/uL (2.0-7.7); Eosinophil# 0.07 X10^3/uL; Hematocrit 22.1 % (40-54); Hemoglobin 7.1 g/dL (13.0-16.5); Lymphocyte # 0.23 X10^3/ul (0.83-4.51); Mean Corp Hgb Conc 32.1 g/dL (32-36); Mean Corpuscular Hgb 29.6 pg (27.0-32.0); Mean Corpuscular Volume 92.1 fL (80-94); Monocyte# 0.15 X10^3/uL; Monocyte% 8.5 % (0-10); NRBC Flagged by Analyzer 0 % (0-5); Neutrophil # 1.26 X10^3/uL (2.7-7.7); Neutrophil % 71.1 % (47-70); POSITIVE COUNT YES; POSITIVE DIFFERENTIAL YES; RBC Distribution Width CV 19.5 % (11.6-14.6); RBC Distribution Width SD 64.3 fl (35.1-43.9); White Blood Count 1.8 K/mm3 (4.4-11.0)
[2021-12-22 05:52] LABS: Differential Indicated SCAN CRITERIA MET; Platelet Count 13 K/mm3 (150-450)
[2021-12-22 06:07] LABS: Anion Gap 6 (5-15); BUN 55 mg/dL (7-18); BUN/Creat Ratio 33.3 RATIO (10-20); Calcium,Total 7.2 mg/dL (8.5-10.1); Chloride 111 mmol/L (98-107); Creatinine, Serum 1.65 mg/dL (0.70-1.30); EST Glomerular Filtration Rate 42 mL/min (>60); Est Glom Filt Rate - Afr Amer 51 mL/min (>60); Estimated Creatinine Clearance 30.91 ml/min; Glucose 101 mg/dL (74-106); Potassium 3.3 mmol/L (3.5-5.1); Sodium Level 141 mmol/L (136-145)
[2021-12-22 06:08] LABS: Acanthocytes RARE; Anisocytosis 1+; Differential Comment SCANNED; Microcytosis 1+; Platelet Estimate MKD DEC (ADEQ)
[2021-12-22] MEDS: Ferrous Sulfate 325 MG Tablet PO (10:39)
[2021-12-22] MEDS: Loratadine 10 MG Tablet PO (10:39)
--- NOTE | 2021-12-22 13:57 | PN.HOSP_ITS ---
Subjective Subjective No new events. Did get his platelets until around midnight. Therefore he did not sleep well last night. Objective Data Objective Data Vital Signs: Vital Signs Temp Pulse Resp BP Pulse Ox 36.8 C 95 16 123/61 H 95 12/22/21 13:01 12/22/21 13:01 12/22/21 13:01 12/22/21 13:01 12/22/21 13:01 Oxygen Delivery Method Room Air Weight: 68 kg Body Mass Index (BMI) 22.8 Intake & Output: Intake and Output for Last 24 Hours 12/20/21 12/21/21 12/22/21 23:59 23:59 23:59 Intake Total 1830 / 1830 1150 / 1150 840 / 840 Output Total 1600 / 1600 1550 / 2550 1950 / 1950 Balance 230 / 230 -400 / -1400 -1110 / -1110 Lab / Micro Data Result Diagrams: 12/22/21 05:35 12/22/21 05:35 Labs: Laboratory Results - last 24 hr 12/20/21 15:32: Crossmatch See Detail 12/22/21 05:35: WBC 1.8 L, RBC 2.40 L, Hgb 7.1 L, Hct 22.1 L, MCV 92.1, MCH 29.6, MCHC 32.1, RDW Std Deviation 64.3 H, RDW Coeff of Patsy 19.5 H, Plt Count 13 L*, MPV TNP, Immature Gran % (Auto) 3.400 H, Neut % (Auto) 71.1 H, Lymph % (Auto) 13.0 L, [place] % (Auto) 8.5, Eos % (Auto) 4.0, Baso % (Auto) 0.0, Absolute Neuts (auto) 1.3 L, Absolute Lymphs (auto) 0.23 L, Nucleated RBC % 0, Differential Comment SCANNED, Diff Path Review May foll, Platelet Estimate MKD DEC, Anisocytosis 1+, Microcytosis 1+, Acanthocytes (Spur) RARE 12/22/21 05:35: Sodium 141, Potassium 3.3 L, Chloride 111 H, Carbon Dioxide 24.0, Anion Gap 6, BUN 55 H, Creatinine 1.65 H, Estim Creat Clear Calc 30.91, Est GFR (MDRD) Af Amer 51 L, Est GFR (MDRD) Non-Af 42 L, BUN/Creatinine Ratio 33.3 H, Glucose 101, Calcium 7.2 L Micro: Microbiology 12/19/21 11:30 Blood Culture (Wb) - Anticubital Left Blood Culture - Preliminary No growth in 48 hours. 12/19/21 10:45 Blood Culture (Wb) - Port Blood Culture - Preliminary No growth in 48 hours. Physical Exam Const alert and no apparent distress Resp normal respiratory effort, no retractions, no use of accessory muscles and clear to auscultation bilaterally Cardio regular rate, regular rhythm, S1 normal heart sound and S2 normal heart sound GI normal to inspection, nondistended, normoactive bowel sounds, soft to palpation, non-tender and non-distended Narrative: Condom catheter in place with stephanie urine. Extremity normal to inspection Extremity Narrative: lower extremity edema Neuro Sensorium / Orientation: awake and alert Assessment & Plan Assessment/Plan (1) Acute non-ST elevation myocardial infarction (NSTEMI): (2) Thrombocytopenia: (3) NIMCO (acute kidney injury): (4) Anemia: QUALIFIERS: Anemia type: unspecified type Qualified Code(s): D64.9 - Anemia, unspecified PLAN: 1. Severe thrombocytopenia Slightly elevated but had just finished transfusion before blood work was drawn this morning. Has received a total of 4 packs of platelets No need for transfusion unless bleeding or less than 10,000. 2. Anemia Improved after transfusion of packed red blood cells on the . May be due to chemotherapy as well. Hg 7.1. Given NSTEMI, will transfuse 1 unit for goal Hg around 8 Will transfuse again today. Total units will have been 2 units of packed red blood cells. 3. Non-STEMI May be type II event Echo unremarkable Goal hemoglobin around 8 Not a candidate for further cardiac intervention 4. Acute kidney injury Creatinine 2.3, baseline around 1.6 improving 5. Leukemia Last received chemotherapy 3 days prior to arrival which will be on hold Follow-up with Dr. Enriquez as outpatient Palliative care consultation 6. VTE prophylaxis: Contraindicated given the patient's thrombocytopenia 7. CODE STATUS: Addressed with patient. Patient was to be DNR Comfort Care arrest no intubation. 8. Debility: to SNF pending precertification. Discussed with the patient's . Today she was asking about him continuing this catheter. I informed her that he has a condom catheter to suction. Told her that is on a long-term solution and a an indwelling catheter would not be appropriate given the risk for infection. She and her both understood. Greater than 35 minutes of which greater than for percent time was spent at bedside discussing with the patient and his about the thrombocytopenia, anemia, non-STEMI and, and disposition. Charges/Coding Visit Charges Inpatient E&M: 81872 Subs Hosp L3
--- NOTE | 2021-12-22 16:34 | NURSING ---
Addendum entered by Mable Ramirez 12/22/21 16:37: Informed Linsey in TCU patient has precert but will but coming tomorrow. Original Note: Received phonecall from Merly in admissions that patient has obtained precert for TCU. Dr Chavez aware. Stated it will be tomorrow.
[2021-12-22] MEDS: Tamsulosin HCl 0.4 MG Capsule PO (21:15)
[2021-12-23] VITALS (12 sets, daily range): BP systolic 106–146; BP diastolic 54–84; PULSE 85–98; RESP 18–20; TEMP 36.4–37.2; O2SAT 94–100
[2021-12-23 05:47] LABS: Absolute Lymphocyte Count 0.27 X10^3/uL (0.83-4.51); Absolute Neutrophil Count 1.7 X10^3/uL (2.0-7.7); Eosinophil# 0.04 X10^3/uL; Eosinophils% 1.8 % (0-5); Hematocrit 25.9 % (40-54); Hemoglobin 8.2 g/dL (13.0-16.5); Lymphocyte # 0.27 X10^3/ul (0.83-4.51); Lymphocyte % 12.4 % (19-41); Mean Corp Hgb Conc 31.7 g/dL (32-36); Mean Corpuscular Hgb 28.4 pg (27.0-32.0); Mean Corpuscular Volume 89.6 fL (80-94); Monocyte# 0.17 X10^3/uL; Monocyte% 7.8 % (0-10); NRBC Flagged by Analyzer 0 % (0-5); Neutrophil # 1.66 X10^3/uL (2.7-7.7); Neutrophil % 76.2 % (47-70); POSITIVE COUNT YES; POSITIVE DIFFERENTIAL YES; RBC Distribution Width CV 19.1 % (11.6-14.6); RBC Distribution Width SD 60.5 fl (35.1-43.9); Red Blood Count 2.89 M/mm3 (4.6-6.2); White Blood Count 2.2 K/mm3 (4.4-11.0)
[2021-12-23 06:12] LABS: Differential Indicated SCAN CRITERIA MET; Platelet Count 3 K/mm3 (150-450)
[2021-12-23 06:13] LABS: Anion Gap 5 (5-15); BUN 55 mg/dL (7-18); BUN/Creat Ratio 32.9 RATIO (10-20); Calcium,Total 7.7 mg/dL (8.5-10.1); Chloride 112 mmol/L (98-107); Creatinine, Serum 1.67 mg/dL (0.70-1.30); EST Glomerular Filtration Rate 42 mL/min (>60); Est Glom Filt Rate - Afr Amer 50 mL/min (>60); Estimated Creatinine Clearance 30.54 ml/min; Glucose 110 mg/dL (74-106); Potassium 3.7 mmol/L (3.5-5.1); Sodium Level 141 mmol/L (136-145)
[2021-12-23 07:00] LABS: Acanthocytes RARE; Differential Comment SCANNED; Platelet Estimate MKD DEC (ADEQ)
[2021-12-23] MEDS: Ferrous Sulfate 325 MG Tablet PO (09:16)
[2021-12-23] MEDS: Loratadine 10 MG Tablet PO (09:16)
--- NOTE | 2021-12-23 12:27 | PN.HOSP_ITS ---
Subjective Subjective Patient seen and examined. He had no complaints today. He had an uneventful night. REview of sysems is otherwise negative. He has remained hemodynamically stable. Platelets are down to 3. Hb is 8.2. Objective Data Objective Data Vital Signs: Vital Signs Temp Pulse Resp BP Pulse Ox 98.4 F 93 18 119/61 99 12/23/21 11:45 12/23/21 11:45 12/23/21 11:45 12/23/21 11:45 12/23/21 05:06 Oxygen Delivery Method Room Air Weight: 149 lb 14.629 oz Body Mass Index (BMI) 22.8 Intake & Output: Intake and Output for Last 24 Hours 12/21/21 12/22/21 12/23/21 23:59 23:59 23:59 Intake Total 1150 / 1150 1240 / 1340 420 / 420 Output Total 1550 / 2550 1950 / 2850 1900 / 1900 Balance -400 / -1400 -710 / -1510 -1480 / -1480 Lab / Micro Data Result Diagrams: 12/23/21 04:47 12/23/21 04:47 Labs: Laboratory Results - last 24 hr 12/20/21 15:32: Crossmatch See Detail 12/23/21 04:47: WBC 2.2 L, RBC 2.89 L, Hgb 8.2 L, Hct 25.9 L, MCV 89.6, MCH 28.4, MCHC 31.7 L, RDW Std Deviation 60.5 H, RDW Coeff of Patsy 19.1 H, Plt Count 3 L*, MPV TNP, Immature Gran % (Auto) 1.800 H, Neut % (Auto) 76.2 H, Lymph % (Auto) 12.4 L, [place] % (Auto) 7.8, Eos % (Auto) 1.8, Baso % (Auto) 0.0, Absolute Neuts (auto) 1.7 L, Absolute Lymphs (auto) 0.27 L, Nucleated RBC % 0, Differential Comment SCANNED, Diff Path Review May foll, Platelet Estimate MKD DEC, Acanthocytes (Spur) RARE 12/23/21 04:47: Sodium 141, Potassium 3.7, Chloride 112 H, Carbon Dioxide 24.0, Anion Gap 5, BUN 55 H, Creatinine 1.67 H, Estim Creat Clear Calc 30.54, Est GFR (MDRD) Af Amer 50 L, Est GFR (MDRD) Non-Af 42 L, BUN/Creatinine Ratio 32.9 H, Glucose 110 H, Calcium 7.7 L Micro: Microbiology 12/23/21 05:05 Nasal Secretion SARS-CoV-2 Antigen (Rapid) - Final 12/19/21 11:30 Blood Culture (Wb) - Anticubital Left Blood Culture - Preliminary No growth in 48 hours. 12/19/21 10:45 Blood Culture (Wb) - Port Blood Culture - Preliminary No growth in 48 hours. Physical Exam Const alert, oriented x3 and no apparent distress Exam Limitations: no limitations HEENT head/scalp atraumatic and moist oral mucous membranes Head and Scalp: normocephalic Eyes PERRL, EOMs intact bilaterally and conjunctivae normal Neck no lymphadenopathy, supple and no JVD Resp normal respiratory effort, no retractions, no use of accessory muscles and clear to auscultation bilaterally Cardio regular rate, regular rhythm, S1 normal heart sound, S2 normal heart sound and no murmurs GI normal to inspection, nondistended, normoactive bowel sounds, soft to palpation, non-tender and non-distended Extremity normal to inspection, full ROM and no clubbing, cyanosis or edema Peripheral Pulses: Yes pulses 2+ throughout Skin no rashes or lesions noted Neuro oriented x3, CN's II-XII intact bilaterally and moves all extremities Sensorium / Orientation: awake and alert Psych affect normal Assessment & Plan Assessment/Plan (1) Anemia: QUALIFIERS: Anemia type: unspecified type Qualified Code(s): D64.9 - Anemia, unspecified (2) NIMCO (acute kidney injury): (3) Acute non-ST elevation myocardial infarction (NSTEMI): (4) Thrombocytopenia: PLAN: #Severe thrombocytopenia * platelets are down to 3 lisset * will transfuse with 4 units of PRBCs today * this is due to leukemia * #Pancytopenia due to leukemia * has been transfused with one unit of PRBC * Hb today is 8.2 * #Nonstemi * thought to be due to demand ischemia * 2D echo was unremarkable * stable * #CKD stable: Cr today is 1.67. Baseline Cr is about 1.6-1.8 #Leukemia * Follows up with oncology on outpatient basis * patient tells me today that he does not think he can continue with repeated transfusions as required for his leukemia * to follow up with oncology on outpatient basis to discuss hospice care; patient says he wants to discuss further care with oncology * DVT prophylaxis: SCDs. no anticoagulation due to thrombocytopenia Charges/Coding Visit Charges Inpatient E&M: 65620 Subs Hosp L3
[2021-12-23 16:32] LABS: Absolute Lymphocyte Count 0.16 X10^3/uL (0.83-4.51); Absolute Neutrophil Count 1.7 X10^3/uL (2.0-7.7); Eosinophil# 0.01 X10^3/uL; Eosinophils% 0.5 % (0-5); Hematocrit 26.7 % (40-54); Hemoglobin 8.6 g/dL (13.0-16.5); Lymphocyte # 0.16 X10^3/ul (0.83-4.51); Lymphocyte % 7.8 % (19-41); Mean Corp Hgb Conc 32.2 g/dL (32-36); Mean Corpuscular Hgb 29.4 pg (27.0-32.0); Mean Corpuscular Volume 91.1 fL (80-94); Mean Platelet Vol. 10.1 fl (6.2-12.0); Monocyte# 0.18 X10^3/uL; Monocyte% 8.8 % (0-10); NRBC Flagged by Analyzer 0 % (0-5); Neutrophil # 1.66 X10^3/uL (2.7-7.7); Neutrophil % 81.4 % (47-70); POSITIVE COUNT YES; POSITIVE DIFFERENTIAL YES; POSITIVE MORPHOLOGY YES; RBC Distribution Width CV 19.3 % (11.6-14.6); Red Blood Count 2.93 M/mm3 (4.6-6.2)
[2021-12-23 16:43] LABS: Differential Indicated SCAN CRITERIA MET; Platelet Count 28 K/mm3 (150-450)
[2021-12-23 17:05] LABS: Differential Comment SCANNED; Platelet Estimate MKD DEC (ADEQ)
[2021-12-23] MEDS: Tamsulosin HCl 0.4 MG Capsule PO (21:44)
[2021-12-24] VITALS (12 sets, daily range): BP systolic 115–134; BP diastolic 48–84; PULSE 88–99; RESP 16–18; TEMP 36.3–37.2; O2SAT 95–100
[2021-12-24 06:08] LABS: Hematocrit 25.2 % (40-54); Mean Corp Hgb Conc 31.7 g/dL (32-36); Mean Corpuscular Hgb 28.9 pg (27.0-32.0); POSITIVE COUNT YES; POSITIVE DIFFERENTIAL YES; POSITIVE MORPHOLOGY YES; Platelet Count 7 K/mm3 (150-450); RBC Distribution Width CV 18.9 % (11.6-14.6); Red Blood Count 2.77 M/mm3 (4.6-6.2); White Blood Count 1.5 K/mm3 (4.4-11.0)
[2021-12-24 06:11] LABS: Differential Indicated MANUAL DIFF
[2021-12-24 06:26] LABS: Absolute Neutrophil Count 1.1 X10^3/uL (2.0-7.7)
[2021-12-24 06:27] LABS: Absolute Lymphocyte Count 0.29 X10^3/uL (0.83-4.51); Anisocytosis 2+; Lymphocyte 19 % (19-41); Metamyelocyte 1 % (0-1); Monocyte 4 % (0-10); Myelocyte 3 % (0-0); Neutrophil-Band 12 % (0-5); Neutrophil-Segmented 61 % (47-70); Platelet Estimate MKD DEC (ADEQ); Red Cell Morphology NORM C+C NORMAL (NORM C&C); Total Cells Counted 100 (MANUAL DIFF)
[2021-12-24 06:30] LABS: Anion Gap 5 (5-15); BUN 48 mg/dL (7-18); BUN/Creat Ratio 31.4 RATIO (10-20); Calcium,Total 7.3 mg/dL (8.5-10.1); Chloride 112 mmol/L (98-107); Creatinine, Serum 1.53 mg/dL (0.70-1.30); EST Glomerular Filtration Rate 46 mL/min (>60); Est Glom Filt Rate - Afr Amer 56 mL/min (>60); Estimated Creatinine Clearance 33.33 ml/min; Glucose 105 mg/dL (74-106); Potassium 3.4 mmol/L (3.5-5.1); Sodium Level 143 mmol/L (136-145)
--- NOTE | 2021-12-24 09:24 | PN.HOSP_ITS ---
Subjective Subjective Patient seen and examined. He had no active complaints and had an uneventful night. REview of systems is otherwise negative. Platelets are down to 7 today, even after receiving 4 units of platelets yesterday. Review of systems otherwise negative. Objective Data Objective Data Vital Signs: Vital Signs Temp Pulse Resp BP Pulse Ox 98.5 F 90 16 115/61 95 12/24/21 03:30 12/24/21 07:00 12/24/21 03:30 12/24/21 03:30 12/24/21 03:30 Oxygen Delivery Method Room Air Weight: 149 lb 14.629 oz Body Mass Index (BMI) 22.8 Intake & Output: Intake and Output for Last 24 Hours 12/22/21 12/23/21 12/24/21 23:59 23:59 23:59 Intake Total 1240 / 1340 1020 / 1220 400 / 400 Output Total 1950 / 2850 2550 / 3050 1200 / 1200 Balance -710 / -1510 -1530 / -1830 -800 / -800 Lab / Micro Data Result Diagrams: 12/24/21 05:59 12/24/21 05:59 Labs: Laboratory Results - last 24 hr 12/20/21 15:32: Crossmatch See Detail 12/23/21 13:20: Blood Type O POSITIVE 12/23/21 16:20: WBC 2.0 L, RBC 2.93 L, Hgb 8.6 L, Hct 26.7 L, MCV 91.1, MCH 29.4, MCHC 32.2, RDW Std Deviation 63.0 H, RDW Coeff of Patsy 19.3 H, Plt Count 28 L*, MPV 10.1, Immature Gran % (Auto) 1.500 H, Neut % (Auto) 81.4 H, Lymph % (Auto) 7.8 L, [place] % (Auto) 8.8, Eos % (Auto) 0.5, Baso % (Auto) 0.0, Absolute Neuts (auto) 1.7 L, Absolute Lymphs (auto) 0.16 L, Nucleated RBC % 0, Differential Comment SCANNED, Diff Path Review February, Platelet Estimate MKD 12/24/21 05:59: WBC 1.5 L, RBC 2.77 L, Hgb 8.0 L, Hct 25.2 L, MCV 91.0, MCH 28.9, MCHC 31.7 L, RDW Std Deviation 62.0 H, RDW Coeff of Patsy 18.9 H, Plt Count 7 L*, Neut % (Auto) Not Reportable, Absolute Neuts (auto) 1.1 L, Absolute Lymphs (auto) 0.29 L, Total Counted 100, Neutrophils % (Manual) 61, Band Neutrophils % 12 H, Lymphocytes % (Manual) 19, Monocytes % (Manual) 4, Metamyelocytes % 1, Myelocytes % 3 H, Diff Path Review February foll, Platelet Estimate MKD DEC, RBC Morphology NORM C+C, Anisocytosis 2+ 12/24/21 05:59: Sodium 143, Potassium 3.4 L, Chloride 112 H, Carbon Dioxide 26.0, Anion Gap 5, BUN 48 H, Creatinine 1.53 H, Estim Creat Clear Calc 33.33, Est GFR (MDRD) Af Amer 56 L, Est GFR (MDRD) Non-Af 46 L, BUN/Creatinine Ratio 31.4 H, Glucose 105, Calcium 7.3 L Micro: Microbiology 12/23/21 05:05 Nasal Secretion SARS-CoV-2 Antigen (Rapid) - Final 12/19/21 11:30 Blood Culture (Wb) - Anticubital Left Blood Culture - Preliminary No growth in 48 hours. 12/19/21 10:45 Blood Culture (Wb) - Port Blood Culture - Preliminary No growth in 48 hours. Physical Exam Const alert, oriented x3 and no apparent distress Constitutional Narrative: Hard of hearing General Appearance: cooperative Exam Limitations: no limitations HEENT normocephalic, head/scalp atraumatic and moist oral mucous membranes Head and Scalp: normocephalic Eyes PERRL, EOMs intact bilaterally and conjunctivae normal Eyes Narrative: No icterus Neck no lymphadenopathy, supple and no JVD Resp normal respiratory effort, no retractions, no use of accessory muscles and clear to auscultation bilaterally Cardio regular rate, regular rhythm, S1 normal heart sound, S2 normal heart sound and no murmurs GI normal to inspection, nondistended, normoactive bowel sounds, soft to palpation, non-tender and non-distended Narrative: Condom catheter in place with stephanie urine. Extremity normal to inspection, full ROM and no clubbing, cyanosis or edema General Extremity: edema Peripheral Pulses: Yes pulses 2+ throughout Skin no rashes or lesions noted Neuro oriented x3, CN's II-XII intact bilaterally and moves all extremities Sensorium / Orientation: awake and alert Psych affect normal Assessment & Plan Assessment/Plan (1) Anemia: QUALIFIERS: Anemia type: unspecified type Qualified Code(s): D64.9 - Anemia, unspecified (2) NIMCO (acute kidney injury): (3) Acute non-ST elevation myocardial infarction (NSTEMI): (4) Thrombocytopenia: PLAN: #Severe thrombocytopenia * platelets are down to 7 today. Platelets came up to 28 yesterday after he received 4 units of platelets. Platelets however down to 7 today. * This is due to his leukemia. I discussed with his oncologist patient's request to stop all these repeated transfusions. Oncologist will see patient today. Hold off on transfusing any more platelets for now. 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 * will monitor * * #Nonstemi * thought to be due to demand ischemia * 2D echo was unremarkable * stable * #CKD stable: Cr today is 1.53. Baseline Cr is about 1.6-1.8 #Leukemia * Follows up with oncology on outpatient basis * patient told me yesterday that he does not think he can continue with repeated transfusions as required for his leukemia * I spoke to his oncologist Dr Enriquez today, who will come and see the patient and discuss goals of care. * DVT prophylaxis: SCDs. no anticoagulation due to thrombocytopenia Charges/Coding Visit Charges Inpatient E&M: 69370 Subs Hosp L3
[2021-12-24] MEDS: Ferrous Sulfate 325 MG Tablet PO (10:34)
[2021-12-24] MEDS: Loratadine 10 MG Tablet PO (10:34)
--- NOTE | 2021-12-24 12:27 | ONC.CONSULT ---
Assessment & Plan Assessment/Plan (1) Anemia: Status: Acute Code(s): D64.9 - Anemia, unspecified Qualifiers: Anemia type: unspecified type Qualified Code(s): D64.9 - Anemia, unspecified (2) NIMCO (acute kidney injury): Status: Acute Code(s): N17.9 - Acute kidney failure, unspecified (3) Acute non-ST elevation myocardial infarction (NSTEMI): Status: Acute Code(s): I21.4 - Non-ST elevation (NSTEMI) myocardial infarction (4) Thrombocytopenia: Status: Acute Code(s): D69.6 - Thrombocytopenia, unspecified (5) AML (acute myeloblastic leukemia): Status: Acute Code(s): C92.00 - Acute myeloblastic leukemia, not having achieved remission Plan: Patient is currently in his third week of cycle #2 of Vidaza and venetoclax for AML. His counts are at charan levels as expected. He is requiring frequent transfusional support. Complicated by gross hematuria and demand ischemia. Functional status is poor. Discussed overall prognosis with him. Since he is currently in the charan. Difficult to tell what kind of count recovery he will have but his white count is low suggesting that leukemia is not progressing. And therefore the current pancytopenia is secondary to recent treatment. I recommended continued supportive care to which she agreed. If after 2 weeks he is not had recovery of counts then we could reconsider comfort measures at that point. Answered all of his and his 's questions to their satisfaction. Discussed with Dr. Freed. To be determined of TCU can accept patient will require transfusions at a minimum 3-5 times a week. HPI Consult Data Date of Service:: 12/24/21 PCP / Referring Provider: Dr. Trina Quiñones MD Attending: Dr. 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 ? HPI: The patient is an 86 yo male who has a PMH significant for prostate cancer (1996 Raymond score of 7 (3+4) and PSA of 8.3 ng/mL tx with RP; salvage radiation 2006), hypercholesterolemia and left sided sciatica. ? He first received epidural injections for left-sided sciatica 09/2014. Shortly thereafter he developed intense diffuse pruritus. There was no associated rash. With time, the itch subsided somewhat and he went onto this receive injections every several months with the most recent being about 3 months prior to evaluation here. At that time the itch was mainly sparing the trunk and the back. He had not had any visible jaundice. ? Previous therapy: 1) Four week course of rituximab -11/2015. ? Patient was in [facility] for the winter. On 11/10/2017 he was at a [employer] [place] and when he was walking he suddenly had the onset of imbalance and ataxia. This occurred during the second hole but he was able to finish walking 9 holes area he was taken to a local emergency room. A CT of the brain done without contrast demonstrated no acute abnormality. Chest x-ray showed bilateral minimal parenchymal stranding which was thought to be atelectatic or fibrotic. No infiltrate. He was admitted. MRI angiography of the neck with and without IV contrast showed no common, internal or external carotid artery stenoses bilaterally. The right vertebral artery was noted to be slightly dominant. Left vertebral artery was patent. ? MRA of the head without contrast showed probable bilateral emboli in the vertebrobasilar system with the largest embolus in the distal branch of the left posterior cerebral artery. An small remote areas of acute ischemia involving medial left occipitotemporal, right occipital, vermis and right cerebellar hemisphere. No hemorrhage or mass effect. In summary the findings were suggestive of multi-territory posterior circulation embolic process. ? Ultrasound of the carotid arteries showed mild mixed plaque formation involving the carotid bulbs and proximal internal carotid arteries bilaterally with no dominant plaque formation or hemodynamically significant stenosis observed. Patent, antegrade flow was noted within both external carotid arteries and vertebral arteries. ? Echocardiogram demonstrated normal left ventricular systolic function. Bubble study showed no evidence of shunt. ? Patient was started on ASA therapy. Of note his white count was noted to be 56,000. Differential suggested neutrophils and monocytes. ? Previous therapy: 1) Low dose Dacogen. ? Current therapy: 1) Azacitidine with venetoclax. Patient received second cycle of venetoclax and azacitidine 12/10 through 12/17. Admitted after falling at home. He was found to have non-STEMI and pancytopenia. ID thought secondary to demand ischemia. Has been receiving transfusional support but counts remain low. Advanced Directives Power of Food Production Manager: Yes Living Will: Yes [facility] Medical History (Updated 12/24/21 @ 13:[address] aGry Enriquez, DO) Abnormal electrocardiogram Acute leukemia Arthritis Chronic kidney disease, stage 3 CML (chronic myelocytic leukemia) CVA (cerebral vascular accident) DDD (degenerative disc disease) GERD (gastroesophageal reflux disease) H/O seborrheic keratosis Hyperlipidemia Keratoacanthoma Leukocytosis Lymphoma Prostate cancer Skin malignant neoplasm Thyroid nodule Vertigo Home Medications ferrous sulfate 325 mg (65 mg iron) tablet 325 mg PO DAILY 07/31/21 [History Last Taken 12/18/21] loratadine 10 mg tablet 10 mg PO DAILY 07/31/21 [History Last Taken 12/18/21] tamsulosin [Flomax] 0.4 mg PO QHS 12/20/21 [History Last Taken Unknown] Allergy/AdvReac Type Severity Reaction Status Date / Time azithromycin AdvReac Mild GI Upset Verified 12/19/21 10:17 [From Zithromax Z-Moises] atorvastatin AdvReac un able to Verified 12/19/21 10:17 focus Sulfa (Sulfonamide AdvReac Unknown Verified 12/19/21 10:17 Antibiotics) Family History Father COPD (chronic obstructive pulmonary disease) Mother Heart disease Alzheimer disease Surgical History History of radical prostatectomy (~1996) Social History Smoking Status: Former smoker quit date: 10/06/79 pack-years: 20 alcohol intake: current alcohol intake frequency: a few times a month substance use type: does not use Vital Signs Temperature 97.4 F L 12/24/21 10:33 Temperature Source Oral 12/24/21 10:33 Pulse Rate 94 12/24/21 10:33 Pulse Strength Weak (1+) 12/24/21 10:30 Respiratory Rate 16 12/24/21 10:33 Respiratory Effort Non-Labored 12/24/21 10:30 Respiratory Depth Normal 12/24/21 10:30 Respiratory Pattern Normal 12/24/21 10:30 Blood Pressure 115/48 L 12/24/21 10:33 Blood Pressure Mean 70 12/24/21 10:33 Blood Pressure Source Monitor 12/24/21 10:33 Blood Pressure Position Sitting 12/24/21 10:33 Blood Pressure Location Left Arm 12/24/21 10:33 Pulse Ox 100 12/24/21 10:33 Oxygen Delivery Method Room Air 12/24/21 10:33 Laboratory Results - last 24 hr 12/23/21 13:20: Blood Type O POSITIVE 12/23/21 16:20: WBC 2.0 L, RBC 2.93 L, Hgb 8.6 L, Hct 26.7 L, MCV 91.1, MCH 29.4, MCHC 32.2, RDW Std Deviation 63.0 H, RDW Coeff of Patsy 19.3 H, Plt Count 28 L*, MPV 10.1, Immature Gran % (Auto) 1.500 H, Neut % (Auto) 81.4 H, Lymph % (Auto) 7.8 L, Irwin % (Auto) 8.8, Eos % (Auto) 0.5, Baso % (Auto) 0.0, Absolute Neuts (auto) 1.7 L, Absolute Lymphs (auto) 0.16 L, Nucleated RBC % 0, Differential Comment SCANNED, Diff Path Review February chelly Platelet Estimate MKD 12/24/21 05:59: WBC 1.5 L, RBC 2.77 L, Hgb 8.0 L, Hct 25.2 L, MCV 91.0, MCH 28.9, MCHC 31.7 L, RDW Std Deviation 62.0 H, RDW Coeff of Patsy 18.9 H, Plt Count 7 L*, Neut % (Auto) Not Reportable, Absolute Neuts (auto) 1.1 L, Absolute Lymphs (auto) 0.29 L, Total Counted 100, Neutrophils % (Manual) 61, Band Neutrophils % 12 H, Lymphocytes % (Manual) 19, Monocytes % (Manual) 4, Metamyelocytes % 1, Myelocytes % 3 H, Diff Path Review May chelly Platelet Estimate MKD SEP, RBC Morphology NORM C+C, Anisocytosis 2+ 12/24/21 05:59: Sodium 143, Potassium 3.4 L, Chloride 112 H, Carbon Dioxide 26.0, Anion Gap 5, BUN 48 H, Creatinine 1.53 H, Estim Creat Clear Calc 33.33, Est GFR (MDRD) Af Amer 56 L, Est GFR (MDRD) Non-Af 46 L, BUN/Creatinine Ratio 31.4 H, Glucose 105, Calcium 7.3 L Microbiology 12/19/21 11:30 Blood Culture (Wb) - Anticubital Left Blood Culture - Final No growth in 5 days. 12/19/21 10:45 Blood Culture (Wb) - Port Blood Culture - Final No growth in 5 days. Diagnostic Data Chest X-Ray 12/19/21 11:12 IMPRESSION: Mildly hyperexpanded lungs with chronic interstitial changes but no superimposed acute pulmonary process Electronically Signed: Rick Leonard MD at 11:25 EDT , Echocardiogram 12/19/21 13:27 Interpretation Summary Normal LV size. Left ventricular systolic function is normal. The estimated ejection fraction is 60 %. Stage 1 diastolic dysfunction. The inferior vena cava is dilated Pulmonary artery systolic pressure is 51 mmHg. Small pericardial effusion. The global longitudinal strain is normal. The global longitudinal strain = -18.3 % (normal). Ordering Physician: Rian Chavez Referring Physician: TRINA QUIÑONES Performed By: Shanique Mg RDCS
[2021-12-24 14:20] LABS: Pathologist Review Reviewed
[2021-12-24 14:20] LABS: Pathologist Review Reviewed
[2021-12-24 14:20] LABS: Pathologist Review Reviewed
[2021-12-24 14:20] LABS: Pathologist Review Reviewed
[2021-12-24 14:21] LABS: Pathologist Review Reviewed
--- NOTE | 2021-12-24 14:23 | CASEMGMT ---
Addendum entered by Racheal Amador 12/24/21 14:57: CHRISTIAN spoke with patient's son and patient. SW explained the situation. CHRISTIAN explained [facility] is willing to take patient, but transportation may be an issue. They have transport, but may not be able to take him every time. Patient's son said they really want him to go to TCU. SW explained that it interferes with his therapy. SW explained that insurance needs to see that he is doing therapy and progressing. Patient's son did not understand why one facility is okay with it and another not. Patient's son asked CHRISTIAN to talk with TCU again. CHRISTIAN spoke with Merly and she will talk with Randi. Racheal CASTRO Original Note: CHRISTIAN spoke with Merly in TCU and inquired if patient would be able to get transfusions a minimum of 3-5 times a week. Merly said this would not work as it would interfere too much with patient's therapy. CHRISTIAN called Dr Enriquez and patient would have labs drawn. Should a transfusion be needed it would likely happen the next day. CHRISTIAN called [facility] as this was patient's second choice. They would be able to do this, but transportation may be an issue. Janice wondered if patient's would be able to help with transport if they cannot. CHRISTIAN will talk with patient's . CHRISTIAN called patient's , but she did not answer. CHRISTIAN will continue trying to reach patient's . Racheal CASTRO
--- NOTE | 2021-12-24 15:37 | CASEMGMT ---
CHRISTIAN received a message from Merly and Director of TCU Randi cannot accept patient due to the amount of time he would need to be off the unit. CHRISTIAN spoke with patient, his , and son. CHRISTIAN told them TCU cannot take patient. They were deciding if they wanted him to go to [facility]. Patient's was possibly going to reach out to Dr Enriquez. Racheal Amador TRACK COACH GLORIA
[2021-12-24 22:34] LABS: Absolute Lymphocyte Count 0.27 X10^3/uL (0.83-4.51); Absolute Neutrophil Count 0.8 X10^3/uL (2.0-7.7); Eosinophil# 0.03 X10^3/uL; Eosinophils% 2.4 % (0-5); Hematocrit 23.8 % (40-54); Hemoglobin 7.6 g/dL (13.0-16.5); Lymphocyte # 0.27 X10^3/ul (0.83-4.51); Mean Corp Hgb Conc 31.9 g/dL (32-36); Mean Corpuscular Hgb 29.7 pg (27.0-32.0); Monocyte# 0.09 X10^3/uL; Monocyte% 7.3 % (0-10); NRBC Flagged by Analyzer 0 % (0-5); Neutrophil # 0.78 X10^3/uL (2.7-7.7); Neutrophil % 63.4 % (47-70); POSITIVE COUNT YES; POSITIVE DIFFERENTIAL YES; POSITIVE MORPHOLOGY YES; RBC Distribution Width SD 63.5 fl (35.1-43.9); Red Blood Count 2.56 M/mm3 (4.6-6.2)
[2021-12-24 22:36] LABS: Differential Indicated SCAN CRITERIA MET; White Blood Count 1.2 K/mm3 (4.4-11.0)
[2021-12-24 22:37] LABS: Platelet Count 11 K/mm3 (150-450)
[2021-12-24] MEDS: Tamsulosin HCl 0.4 MG Capsule PO (23:00)
[2021-12-24 23:15] LABS: Differential Comment SCANNED
[2021-12-25] VITALS (16 sets, daily range): BP systolic 109–136; BP diastolic 51–67; PULSE 87–100; RESP 16–20; TEMP 36.6–37.2; O2SAT 94–99
[2021-12-25 06:39] LABS: Absolute Lymphocyte Count 0.22 X10^3/uL (0.83-4.51); Absolute Neutrophil Count 0.7 X10^3/uL (2.0-7.7); Hematocrit 23.7 % (40-54); Hemoglobin 7.6 g/dL (13.0-16.5); Lymphocyte # 0.22 X10^3/ul (0.83-4.51); Lymphocyte % 21.6 % (19-41); Mean Corp Hgb Conc 32.1 g/dL (32-36); Mean Corpuscular Hgb 29.7 pg (27.0-32.0); Mean Corpuscular Volume 92.6 fL (80-94); Monocyte# 0.11 X10^3/uL; Monocyte% 10.8 % (0-10); NRBC Flagged by Analyzer 0 % (0-5); Neutrophil # 0.68 X10^3/uL (2.7-7.7); Neutrophil % 66.6 % (47-70); POSITIVE COUNT YES; POSITIVE DIFFERENTIAL YES; POSITIVE MORPHOLOGY YES; Platelet Count 9 K/mm3 (150-450); RBC Distribution Width CV 18.9 % (11.6-14.6); RBC Distribution Width SD 63.6 fl (35.1-43.9); Red Blood Count 2.56 M/mm3 (4.6-6.2)
[2021-12-25 06:42] LABS: Differential Indicated SCAN CRITERIA MET
[2021-12-25 06:51] LABS: Anisocytosis 1+; Platelet Estimate MKD DEC (ADEQ)
[2021-12-25] MEDS: Ferrous Sulfate 325 MG Tablet PO (09:48)
[2021-12-25] MEDS: Loratadine 10 MG Tablet PO (09:48)
--- NOTE | 2021-12-25 10:55 | CASEMGMT ---
Anel from palliative came out of pt room and states that pt/family are interested in Hospice at this time and that they are asking about transfusions for comfort, she will check on this. Referral faxed to Hospice and Anel also placed call to Hospice. Dr. Freed updated. Nima RN CM
--- NOTE | 2021-12-25 11:04 | CON.PCM.PA_ITS ---
Assessment & Plan Assessment/Plan (1) AML (acute myeloblastic leukemia): (2) Anemia: QUALIFIERS: Anemia type: unspecified type Qualified Code(s): D64.9 - Anemia, unspecified (3) NIMCO (acute kidney injury): (4) Thrombocytopenia: (5) Balance problem: PLAN: JOCELYNE SINGLETON is a 86 M who presented to [facility] ER on 12/19/21 with weakness. Patient has CML (chronic myelocytic leukemia) and had his last round of chemo 3 days ago. After discussion with family, plan is as follows: 1) AML/thrombocytopenia/ Anemia: After discussion with patient, and son, they are in agreement for hospice care versus Palliative. Questions answered abo ut coverage of Palliative comfort measures and patient voices understanding. Hospice referral placed and family aware that Hospice will be contacting them for consent signing. Hopeful to be able to go home today with Hospice care. Thank you for the opportunity to participate in this patient's care, please do not hesitate to contact [facility] hosp[facility] with any further questions or concerns. Contact information left with the patient and family. Greater than 50% of F2F visit dedicated to education and counseling of Hospice care services, hospice home care and comfort measures going forward Start time: 10:15 End time: 11:40 HPI Consult Data Date of Consult: 12/25/21 HPI Narrative HPI Narrative: JOCELYNE SINGLETON is a 86 M who presented to [facility] ER on 12/19/21 with weakness. Patient has CML (chronic myelocytic leukemia) and had his last round of chemo 3 days ago. He was found to have a hemoglobin of 7.3, platelets of 6000 and creatinine of 2.3. He had an infusion of both platelets and red blood cells yesterday. He was admitted last month due to hematuria due to thrombocytopenia and radiation cystitis. Also required platelet transfusions and 3 units of blood cells. He received 2 units of PRBCs in the ER. Started on IV fluids due to NIMCO. ECHO on 12/19/21 showed normal LV function with EF 60% with stage 1 diastolic dysfunction. Pulmonary artery systolic pressure is 51mmHG with small pericardial effusion. Chemo will continue to be on hold. Received 4 units of Platelets on 12/23/21 and down to 7 after 28 post infusions. Hemoglobin was 8 with WBC 1.5. Family discussed with Dr. Enriquez and was going to pursue 2 more weeks to see if counts recover and then transition to comfort care at that point. Per Oncology note: Current therapy is Azacitidine with venetoclax. Patient received second cycle of venetoclax and azacitidine 12/10 through 12/17. Admitted after falling at home. He was found to have non-STEMI and pancytopenia. [place] thought secondary to demand ischemia. Has been receiving transfusional support but counts remain low. Met with patient, and son in PCU room. Palliative and Hospice discussed and family decides that patient wants to go home and not pursue further treatment. They are interested in possible palliative transfusions of blood products (PRBCs, platelets) Discussed with Ml Dan at [facility] and that the option for transfusions can be assessed according to Palliative benefit to the patient and assessment of patient's functional PPS. Would not be a weekly option. Family always has the right to revoke for active treatment. Discussed with family and voices understanding. Goals expressed are to maintain comfort and allow patient to enjoy time he has left at home with family. [facility] Medical History Abnormal electrocardiogram Acute leukemia Arthritis Chronic kidney disease, stage 3 CML (chronic myelocytic leukemia) CVA (cerebral vascular accident) DDD (degenerative disc disease) GERD (gastroesophageal reflux disease) H/O seborrheic keratosis Hyperlipidemia Keratoacanthoma Leukocytosis Lymphoma Prostate cancer Skin malignant neoplasm Thyroid nodule Vertigo Home Medications ferrous sulfate 325 mg (65 mg iron) tablet 325 mg PO DAILY 07/31/21 [History Last Taken 12/18/21] loratadine 10 mg tablet 10 mg PO DAILY 07/31/21 [History Last Taken 12/18/21] tamsulosin [Flomax] 0.4 mg PO QHS 12/20/21 [History Last Taken Unknown] Allergy/AdvReac Type Severity Reaction Status Date / Time azithromycin AdvReac Mild GI Upset Verified 12/19/21 10:17 [From Zithromax Z-Moises] atorvastatin AdvReac un able to Verified 12/19/21 10:17 focus Sulfa (Sulfonamide AdvReac Unknown Verified 12/19/21 10:17 Antibiotics) Family History Father COPD (chronic obstructive pulmonary disease) Mother Heart disease Alzheimer disease Surgical History History of radical prostatectomy (~1996) Social History Smoking Status: Former smoker quit date: 10/06/79 pack-years: 20 alcohol intake: current alcohol intake frequency: a few times a month substance use type: does not use ROS Constitutional Constitutional: Reports fatigue ENT HEENT: Reports abnormal hearing and hearing loss; Denies dizziness, epistaxis or nasal congestion Cardiovascular Cardiovascular: Reports dyspnea on exertion; Denies cold extremities, cyanosis or dyspnea at rest Respiratory/Chest Respiratory/Chest: Denies change in mental status, chest congestion, chest tightness or cough Gastrointestinal Gastrointestinal: Denies abdominal pain, bloating or dysphagia Genitourinary Genitourinary: Reports urinary incontinence and other; Denies anuria or burning urination Musculoskeletal Musculoskeletal: Reports none and muscle weakness Neurologic Neurologic: Denies abnormal speech, behavior changes, confusion or dizziness Physical Exam Const alert, oriented x3 and no apparent distress Constitutional Narrative: [place] General Appearance: cooperative, comfortable and well kempt Nutritional Appearance: thin HEENT normocephalic and head/scalp atraumatic Nose: external nose normal General Ear: hearing grossly impaired Eyes EOMs intact bilaterally, conjunctivae normal and no scleral icterus General Eye: normal appearance of both eyes Resp normal respiratory effort, normal air movement and no use of accessory muscles Effort and Inspection: symmetric chest movement Auscultation: clear to auscultation bilaterally Cardio regular rate, regular rhythm, S1 normal heart sound, S2 normal heart sound and no murmurs GI normal to inspection, nondistended, normoactive bowel sounds, soft to palpation, non-tender and non-distended Auscultation: normoactive bowel sounds Bladder / Kidney Exam: catheter in place external ( Dark stephanie urine) Back/Spine normal ROM Extremity General Extremity: edema bilateral (BLE right +1> left trace) Neuro oriented x3, CN's II-XII intact bilaterally, moves all extremities, no focal motor deficits and no sensory deficits noted
--- NOTE | 2021-12-25 11:17 | CASEMGMT ---
Patient and his family have decided he would like to go home on Hospice. ANUPAM SMITH faxed referral. SW called Hospice regarding referral. SW spoke with patient, his , and son. SW explained someone from Hospice will be contacting her to set up an appt. Racheal CASTRO
[2021-12-25 12:52] LABS: Pathologist Review Reviewed
[2021-12-25 12:54] LABS: Pathologist Review Reviewed
--- NOTE | 2021-12-25 14:01 | PCM.PN.HOSP ---
Subjective Subjective Patient seen and examined. He was comfortably lying in bed and had no active complaints. He had an uneventful night and review of systems is otherwise negative. He has remained hemodynamically stable. I spoke to his oncologist yesterday who said he felt that the pancytopenia was likely due to the chemotherapy and so should bounce back up slowly. He recommended that patient be given continued platelet transfusions and given a couple of weeks to see if his counts will recover. Today however patient and decided that they want to take him home with hospice as patient does not want any more repeated transfusions. Hospice consulted. Platelets are 9 today. Objective Data Objective Data Vital Signs: Vital Signs Temp Pulse Resp BP Pulse Ox 97.8 F 89 18 111/51 L 98 12/25/21 07:30 12/25/21 11:57 12/25/21 07:30 12/25/21 07:30 12/25/21 09:16 Oxygen Delivery Method Room Air Weight: 149 lb 14.629 oz Body Mass Index (BMI) 22.8 Intake & Output: Intake and Output for Last 24 Hours 12/23/21 12/24/21 12/25/21 23:59 23:59 23:59 Intake Total 1020 / 1220 1260 / 1260 200 / 200 Output Total 2550 / 3050 2100 / 2140 70 / 70 Balance -1530 / -1830 -840 / -880 130 / 130 Lab / Micro Data Result Diagrams: 12/25/21 06:23 12/24/21 05:59 Labs: Laboratory Results - last 24 hr 12/21/21 07:30: Diff Path Review Reviewed 12/22/21 05:35: Diff Path Review Reviewed 12/23/21 04:47: Diff Path Review Reviewed 12/23/21 13:20: Blood Type O POSITIVE 12/23/21 16:20: Diff Path Review Reviewed 12/24/21 05:59: Diff Path Review Reviewed 12/24/21 22:10: WBC 1.2 L*, RBC 2.56 L, Hgb 7.6 L, Hct 23.8 L, MCV 93.0, MCH 29.7, MCHC 31.9 L, RDW Std Deviation 63.5 H, RDW Coeff of Patsy 19.0 H, Plt Count 11 L*, MPV TNP, Immature Gran % (Auto) 4.900 H, Neut % (Auto) 63.4, Lymph % (Auto) 22.0, Dupage % (Auto) 7.3, Eos % (Auto) 2.4, Baso % (Auto) 0.0, Absolute Neuts (auto) 0.8 L, Absolute Lymphs (auto) 0.27 L, Nucleated RBC % 0, Differential Comment SCANNED, Diff Path Review Reviewed 12/25/21 06:23: WBC 1.0 L*, RBC 2.56 L, Hgb 7.6 L, Hct 23.7 L, MCV 92.6, MCH 29.7, MCHC 32.1, RDW Std Deviation 63.6 H, RDW Coeff of Patsy 18.9 H, Plt Count 9 L*, Immature Gran % (Auto) 1.000 H, Neut % (Auto) 66.6, Lymph % (Auto) 21.6, Dupage % (Auto) 10.8 H, Eos % (Auto) 0.0, Baso % (Auto) 0.0, Absolute Neuts (auto) 0.7 L, Absolute Lymphs (auto) 0.22 L, Nucleated RBC % 0, Diff Path Review Reviewed, Platelet Estimate MKD DEC, Anisocytosis 1+ Micro: Microbiology 12/19/21 11:30 Blood Culture (Wb) - Anticubital Left Blood Culture - Final No growth in 5 days. 12/19/21 10:45 Blood Culture (Wb) - Port Blood Culture - Final No growth in 5 days. 12/23/21 05:05 Nasal Secretion SARS-CoV-2 Antigen (Rapid) - Final Physical Exam Const alert, oriented x3 and no apparent distress Constitutional Narrative: Hard of hearing General Appearance: cooperative Exam Limitations: no limitations HEENT normocephalic, head/scalp atraumatic and moist oral mucous membranes Head and Scalp: normocephalic Eyes PERRL, EOMs intact bilaterally and conjunctivae normal Neck no lymphadenopathy, supple and no JVD Resp normal respiratory effort, no retractions, no use of accessory muscles and clear to auscultation bilaterally Cardio regular rate, regular rhythm, S1 normal heart sound, S2 normal heart sound and no murmurs GI normal to inspection, nondistended, normoactive bowel sounds, soft to palpation, non-tender and non-distended Narrative: Condom catheter in place with stephanie urine. Extremity normal to inspection, full ROM and no clubbing, cyanosis or edema General Extremity: edema Peripheral Pulses: Yes pulses 2+ throughout Skin no rashes or lesions noted Neuro oriented x3, CN's II-XII intact bilaterally and moves all extremities Sensorium / Orientation: awake and alert Psych affect normal Assessment & Plan Assessment/Plan (1) Anemia: QUALIFIERS: Anemia type: unspecified type Qualified Code(s): D64.9 - Anemia, unspecified (2) NIMCO (acute kidney injury): (3) Acute non-ST elevation myocardial infarction (NSTEMI): (4) Thrombocytopenia: PLAN: #Severe thrombocytopenia platelets are down to 9 today. He did received platelets today this is due to his leukemia his oncologist had suggested yesterday that patient continue with repeated platelet transfusions as he was hopeful his counts would recover as the chemotherapy wore off patient and family however requested to go home with hospice today. Hospice consulted This is due to his leukemia. I discussed with his oncologist patient's request to stop all these repeated transfusions. Oncologist will see patient today. Hold off on transfusing any more platelets for now. 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 no anticoagulation due to thrombocytopenia Disposition: hospice consulted for discharge home with home hospice. Charges/Coding Visit Charges Inpatient E&M: [address] [facility] L3
--- NOTE | 2021-12-25 16:01 | CASEMGMT ---
Patient and his signed Hospice papers. Patient will be discharged home tomorrow on Hospice. Racheal CASTRO
[2021-12-25] MEDS: Tamsulosin HCl 0.4 MG Capsule PO (21:31)
--- NOTE | 2021-12-25 23:29 | EKG12_ITS ---
Test Reason : RYTHM CHANGE Blood Pressure : / mmHG Vent. Rate : 131 BPM Atrial Rate : 141 BPM P-R Int : 000 ms QRS Dur : 102 ms QT Int : 336 ms P-R-T Axes : 000 -49 091 degrees QTc Int : 496 ms Supraventricular tachycardia Left axis deviation Left ventricular hypertrophy with repolarization abnormality Abnormal ECG When compared with ECG of 19-DEC-2021 15:18, ST now depressed in Lateral leads Confirmed by JONATHAN ALCANTARA, EZRA ([id number]), publication editor LADAN WELLS ([id number]) on 12/28/2021 9:01:18 AM Referred By: ARNIE Confirmed By:EZRA CASTILLO MD
--- NOTE | 2021-12-26 00:51 | NURSING ---
An hour after patient's HR was running 130's, he is now anywhere from mid 90's-low 100's. He has intermittent periods of jumping up to 130, but hasn't been sustaining. Will continue to monitor patient.
[2021-12-26 03:10] VITALS: PULSE 95
[2021-12-26 05:40] VITALS: BP 118/55; PULSE 93; RESP 18; TEMP 37.2; O2SAT 93
[2021-12-26 06:32] VITALS: PULSE 97
[2021-12-26 08:55] VITALS: BP 106/78; PULSE 92; RESP 18; TEMP 37.2; O2SAT 99
[2021-12-26] MEDS: Ferrous Sulfate 325 MG Tablet PO (08:57)
[2021-12-26] MEDS: Loratadine 10 MG Tablet PO (08:57)
--- NOTE | 2021-12-26 09:52 | CASEMGMT ---
CHRISTIAN called Jackie at Hospice and patient is fine to go home anytime. CHRISTIAN notified physician. CHRISTIAN will talk with patient and his regarding transport home. Racheal CASTRO
--- NOTE | 2021-12-26 11:51 | PCM.DC.SUM ---
Providers Date of Admission: 12/19/21 Primary Care Physician: Dr. Renata Rodriguez MD Consultations 12/21/21 13:59 Consult: Hospice / Palliative Care Routine Consulting Provider: [facility] Reason for Consult: leukemia EMERGENT Consult: No Notified: Yes Date Notified: 12/21/21 Time Notified: 14:00 Method of Notification: per casemanagement 12/24/21 09:37 Consult: Oncology/Hematology Routine Consulting Provider: [facility] Reason for Consult: severe thrombocytopenia, hx of leukemia EMERGENT Consult: No Notified: Yes Date Notified: 12/24/21 Time Notified: 09:37 Method of Notification: Verbal Reason For Visit: thrombocytopenia, nstemi Diagnosis Discharge Diagnosis (1) Anemia: Status: Acute Code(s): D64.9 - Anemia, unspecified Qualifiers: Anemia type: unspecified type Qualified Code(s): D64.9 - Anemia, unspecified (2) NIMCO (acute kidney injury): Status: Acute Code(s): N17.9 - Acute kidney failure, unspecified (3) Acute non-ST elevation myocardial infarction (NSTEMI): Status: Acute Code(s): I21.4 - Non-ST elevation (NSTEMI) myocardial infarction (4) Thrombocytopenia: Status: Acute Code(s): D69.6 - Thrombocytopenia, unspecified Medications at Discharge Home Medications ferrous sulfate 325 mg (65 mg iron) tablet 325 mg PO DAILY 07/31/21 loratadine 10 mg tablet 10 mg PO DAILY 07/31/21 tamsulosin [Flomax] 0.4 mg PO QHS 12/20/21 Hospital Course Operations None Procedures None Summary of Care Provided Minutes Spent on Discharge: 50 Hospital Course: Patient is an 86-year-old male with an extensive past medical history as outlined including leukemia who was admitted through the ED on 12/19/2021 with a complaint of weakness. Patient is on chemotherapy for acute leukemia and had just had his last round of chemotherapy about 3 days prior to admission. 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 For this admission he came in with weakness. He had just received platelets and PRBCs on outpatient basis the day before admission. This admission, he was found to have hemoglobin of 7.3 with platelets of 6000 and creatinine of 2.3. Was also found to have elevated troponin which was thought to be a type II event and was not a candidate for coronary intervention in light of his profound thrombocytopenia. He was admitted and managed for pancytopenia with profound thrombocytopenia thought to be due to chemotherapy. He was also managed for NIMCO and hydrated gently with IV fluids. He was transfused with platelets. 2D echo showed EF of 60% with stage I diastolic dysfunction and no regional wall motion abnormalities noted. Despite repeated multiple transfusions, patient's thrombocytopenia was refractory to transfusion. Patient eventually stated that he did not want any more transfusions and wanted to go home with hospice. Oncology was consulted and per oncology, they recommended further platelet transfusions as oncology felt that the drop in counts was due to his chemotherapy and should cook pickled meat in about 2 weeks. Patient and her family however opted for hospice and so hospice was consulted and patient was agreeable to going home with home hospice. He was discharged home with home hospice on 12/26/2021. Patient was seen and examined prior to discharge. He had no active complaints and felt well. Review of systems otherwise negative. Labs and vitals reviewed. Medication reviewed and reconciled. Physical Exam Const alert, oriented x3 and no apparent distress Constitutional Narrative: Hard of hearing General Appearance: cooperative and comfortable Exam Limitations: no limitations HEENT normocephalic, head/scalp atraumatic and moist oral mucous membranes Eyes PERRL, EOMs intact bilaterally and conjunctivae normal Eyes Narrative: No icterus Neck no lymphadenopathy, supple and no JVD Resp normal respiratory effort, no retractions, no use of accessory muscles and clear to auscultation bilaterally Cardio regular rate, regular rhythm, S1 normal heart sound, S2 normal heart sound and no murmurs GI normal to inspection, nondistended, normoactive bowel sounds, soft to palpation, non-tender and non-distended Narrative: Condom catheter in place with stephanie urine. Extremity normal to inspection, full ROM and no clubbing, cyanosis or edema Extremity Narrative: lower extremity edema General Extremity: edema Skin no rashes or lesions noted Neuro oriented x3, CN's II-XII intact bilaterally and moves all extremities Sensorium / Orientation: awake and alert Psych affect normal Weight / BMI Weight Weight: 149 lb 14.629 oz Body Mass Index (BMI) 22.8 ABG / Lab / Microbiology Data Result Diagrams: 12/25/21 06:23 12/24/21 05:59 Laboratory: Laboratory Results - last 24 hr 12/24/21 22:10: Diff Path Review Reviewed 12/25/21 06:23: Diff Path Review Reviewed Microbiology: Microbiology 12/19/21 11:30 Blood Culture (Wb) - Anticubital Left Blood Culture - Final No growth in 5 days. 12/19/21 10:45 Blood Culture (Wb) - Port Blood Culture - Final No growth in 5 days. 12/23/21 05:05 Nasal Secretion SARS-CoV-2 Antigen (Rapid) - Final D/C Instructions Discharge Diet: Low fat / Low cholesterol Discharge Activity: Return to Normal Activity Weight Bearing Status: Weight bearing as tolerated Call your doctor if you observe: Fever of 101 or Higher, Shortness of breath, Swelling in the ankles and Increased palpitations (irregular heartbeat) Meaningful Use Info Meaningful Use Diagnoses (Choose all that apply): None applicable Discharge Plan Admission Admit Date/Time: 12/19/21 12:43 Primary Reason for Your Visit: pancytopenia Attending Provider: Diane Freed Primary Care Provider: Renata Rodriguez Consulting Providers: Nancy Townsend ; Elías Musa ; Amanda Johnson ; Freda Mao ; Anel Martínez ; Berta Ryan NP ; Ramone Villatoro ; Geraldine Carrera ; Yaron Denise ; Ovidio Frank ; Gary Enriquez Discharge Orders/Prescriptions Prescriptions: Continued loratadine [Claritin] 10 mg tablet 10 mg PO DAILY RF: 0 ferrous sulfate 325 mg (65 mg iron) tablet 325 mg PO DAILY RF: 0 tamsulosin [Flomax] 0.4 mg capsule 0.4 mg PO QHS RF: 0 Referrals / Follow Up: Renata Rodriguez MD [Primary Care Provider] - Disposition Disposition (needs filled in before D/C Order can be placed): Hospice in Home Charges/Coding Visit Charges Inpatient E&M: 79768 [facility]
--- NOTE | 2021-12-26 14:00 | CASEMGMT ---
Patient is getting ready to leave the hospital for home. CHRISTIAN called Angelita at Hospice and let her know. CHRISTIAN also faxed d/c information to Hospice. Plan: d/c home on [facility]. Racheal CASTRO
== END 2021-12-26 14:00 | disposition hospice, home (50) | DRG 808 ==
LOC: ED 12:38 → PCU 14:00
PROVIDERS: Family Medicine; Emergency Provider Emergency Medicine; PCP Internal Medicine; Visit Provider Student in an Organized Health Care Education/Training Program
DX: D61.810 Antineoplastic chemotherapy induced pancytopenia (principal); I21.A1 Myocardial infarction type 2; C92.00 Acute myeloblastic leukemia, not having achieved remission; N17.9 Acute kidney failure, unspecified; C93.10 Chronic myelomonocytic leukemia not having achieved remission; C88.0 Waldenstrom macroglobulinemia; D46.9 Myelodysplastic syndrome, unspecified; E78.5 Hyperlipidemia, unspecified; K21.9 Gastro-esophageal reflux disease without esophagitis; N18.30 Chronic kidney disease, stage 3 unspecified; M54.32 Sciatica, left side; T45.1X5A Adverse effect of antineoplastic and immunosuppressive drugs, initial encounter; Z20.822 Contact with and (suspected) exposure to COVID-19; Z66 Do not resuscitate; Z79.899 Other long term (current) drug therapy; Z86.73 Personal history of transient ischemic attack (TIA), and cerebral infarction without residual deficits; Z87.891 Personal history of nicotine dependence; Z90.79 Acquired absence of other genital organ(s)
CPT/HCPCS: 36415; 36430; 36591; 71045; 80048; 80053; 81001; 83605; 84484; 85025; 86644; 86850; 86900; 86901; 86920; 86922; 86965; 87040; 87426; 93005; 93306; 97110; 97116; 97162; 97166; 97530; 97535; 99285; J7030; J7040; P9016; P9035; P9037; P9612; A4216

== ENCOUNTER 2021-12-28 10:26 | Outpatient (CLI) | payer MEDICARE, SELFPAY ==
[2018-07-14 13:00] VITALS: BMI 24.0
[2021-12-28 10:32] VITALS: BP 126/53; PULSE 93; RESP 16; TEMP 36.4; O2SAT 97; BMI 22.8
[2021-12-28] MEDS: 0.9% NaCl Peripheral Flush Adult/Peds IV ×2 (10:45→12:22)
[2021-12-28 11:13] VITALS: BP 134/66; PULSE 90; RESP 16; TEMP 36.6
[2021-12-28 11:57] VITALS: BP 114/51; PULSE 87; RESP 16; TEMP 36.8
[2021-12-28 12:21] VITALS: BP 127/54; PULSE 88; RESP 16; TEMP 36.8; O2SAT 99
== END 2021-12-28 23:59 | disposition home or self-care (01) ==
LOC: MEDOUTP 10:26
PROVIDERS: PCP Internal Medicine; Referring Provider Internal Medicine Hematology & Oncology; Visit Provider Internal Medicine Hematology & Oncology
DX: D46.9 Myelodysplastic syndrome, unspecified (principal)
CPT/HCPCS: 36430; 86900; 86901; 86965; J7040; P9035; A4216